=== PATIENT | female | born 1945 | race Caucasian/White ===

== ENCOUNTER 2019-11-19 22:33 | Inpatient (IN) | payer MEDICARE, OTHER ==
[2019-11-19] MEDS ORDERED: hydrALAZINE 20 MG/ML SDV IVPUSH ONE (23:49)
[2019-11-19] MEDS ORDERED: Ondansetron 4 MG Tab.DIS PO PRN (23:56)
[2019-11-19] MEDS ORDERED: 50% Dextrose in Water 50 ML Syringe IVPUSH PRN (23:56)
[2019-11-19] MEDS ORDERED: hydrALAZINE 20 MG/ML SDV IVPUSH PRN (23:56)
[2019-11-19] MEDS ORDERED: Ondansetron 4 MG/2 ML SDV IV PRN (23:56)
[2019-11-20] MEDS ORDERED: Losartan 100 MG Tab PO STA (00:13)
[2019-11-20] MEDS: Insulin Glarg,Human.Rec.Analog 100 Unit/ML SUBCUT SCH ×3 (00:45→20:38)
[2019-11-20] MEDS ORDERED: Insulin Lispro 100 Units/ML 3 ML Vial SUBCUT SCH ×2 (06:00→07:00)
[2019-11-20] MEDS: amLODIPine 10 MG Tab PO SCH (09:16)
[2019-11-20 11:47] LABS: VITAMIN D,25-HYDROXY 9.8 ng/ml (30.0-100.0)
[2019-11-20] MEDS: Insulin Lispro 100 Units/ML 3 ML Vial SUBCUT SCH ×3 (13:30→21:49)
--- NOTE | 2019-11-20 16:04 | PCM.PN ---
- General Info Date of Service: 11/20/19 Subjective Update: Feeling ok Tolerating diet Slept ok - Patient Data Vitals - Most Recent: Last Vital Signs Temp 99.1 F 11/20/19 15:25 Pulse 86 11/20/19 15:25 Resp 16 11/20/19 15:25 BP 175/70 H 11/20/19 15:25 Pulse Ox 94 L 11/20/19 15:25 Weight - Most Recent: 71.849 kg - Exam General: Alert, Cooperative, No Acute Distress HEENT: Pupils Equal, Pupils Reactive, Mucous Membr. Moist/[place] Neck: Supple, Trachea Midline, No JVD, No Thyromegaly Lungs: Clear to Auscultation, Normal Respiratory Effort. No: Decreased Breath Sounds, Crackles, Rales, Rhonchi, Wheezing Cardiovascular: Regular Rate, Regular Rhythm. No: Murmurs, Gallops, Rubs GI/Abdominal Exam: Normal Bowel Sounds, Soft, Non-Tender Back Exam: Normal Inspection, Full Range of Motion. No: CVA Tenderness (L), CVA Tenderness (R) Extremities: Normal Inspection, Normal Range of Motion Skin: Warm, Dry Neurological: No New Focal Deficit Psy/Mental Status: Alert Sepsis Event Note - Evaluation Sepsis Screening Result: No Definite Risk - Focused Exam Vital Signs: Vital Signs Temp Pulse Resp BP Pulse Ox 11/20/19 15:25 99.1 F 86 16 175/70 H 94 L 11/20/19 12:09 98.4 F 84 16 179/77 H 97 11/20/19 09:16 169/63 H 11/20/19 07:42 98.2 F 81 16 169/63 H 96 Date Exam was Performed: 11/20/19 Time Exam was Performed: 16:35 - Problem List & Annotations (1) CKD (chronic kidney disease), stage III SNOMED Code(s): 398896686 Code(s): N18.3 - CHRONIC KIDNEY DISEASE, STAGE 3 (MODERATE) Status: Acute Current Visit: Yes (2) Hypokalemia SNOMED Code(s): 22586132 Code(s): E87.6 - HYPOKALEMIA Status: Acute Current Visit: Yes (3) Altered mental status SNOMED Code(s): 744407520 Code(s): R41.82 - ALTERED MENTAL STATUS, UNSPECIFIED Status: Acute Current Visit: Yes (4) Hypomagnesemia SNOMED Code(s): 344821854 Code(s): E83.42 - HYPOMAGNESEMIA Status: Acute Current Visit: Yes (5) Poor compliance SNOMED Code(s): 5267087 Code(s): Z91.19 - PATIENT'S NONCOMPLIANCE W OTH MEDICAL TREATMENT AND REGIMEN Status: Acute Current Visit: Yes (6) Uncontrolled diabetes mellitus SNOMED Code(s): 88268569, 727947123 Code(s): E11.65 - TYPE 2 DIABETES MELLITUS WITH HYPERGLYCEMIA Status: Acute Current Visit: Yes (7) Uncontrolled hypertension SNOMED Code(s): 70480238, 19598111 Code(s): I10 - ESSENTIAL (PRIMARY) HYPERTENSION Status: Acute Current Visit: Yes - Problem List Review Problem List Initiated/Reviewed/Updated: Yes - Plan Plan:: Altered Mental Status Is very tangential with her speech as well as inattentive Patient appears very apathetic This month is the anniversary of her 's PLAN - Speech therapy cognitive evaluation - Psychiatry consult Diabetes Mellitus type 2, HbA1c- 9.9% (today) Glucose trend 149-170 PLAN - Accuchecks QID AC and HS - Hypoglycemia protocol - Glargine 50u every night - High intensity sliding scale Hypertension, uncontrolled BP trend 144-210/63-94 PLAN - Amlodipine 10mg QD - Losartan 100mg QD - PRN Hydralazine - Add hydrochlorothiazide 12.5mg QD CKD stage III Hypomagnesemia Hypokalemia GFR improved from yesterday PLAN - Repeat level in AM PROPHYLAXIS DVT- ambulation and compression stockings GI- not indicated CODE STATUS: DNR/DNI DISPOSITION: Patient will remain admitted for glucose control as well as bp stabilization with cognitive evaluation. Case management and social workers aware of case, pending evaluations of PT/OT for placement
--- NOTE | 2019-11-20 16:04 | PCM.HP.2 ---
H&P History of Present Illness - General Date of Service: 11/19/19 Admit Problem/Dx: Admission Diagnosis/Problem Admission Diagnosis/Problem Hyperglycemia - History of Present Illness Initial Comments - Free Text/Narative: This is a 74 year old female with past medical history of diabetes and hypertension who comes to the ED brought in by daughter, transferred from hospital in [place]. As per daughter she left home earlier this morning for an ladle patcher appointment in [place]. On her way there she was part of a highway shea with 4 patrol cars that were trying to stop her on the highway. She was eventually stopped and pulled over, at that time her glucose was 500. She was taken to a courthouse where daughter was called, upon picking her up she took patient to the emergency department where she was found to have glucose of 500 and BP of 274/120. She was given amlodipine 5mg, hydralazine 50mg, metoprolol tartrate 25mg and Lasix 20mg PO with minimal change in BP. As for her glucose she was given Humalog 10u and Lantus 10u, she was also given 1L NS and sent her for further evaluation. Of note daughter states that patient has not been taking medications for unknown time. - Related Data Allergies/Adverse Reactions: Allergies Allergy/AdvReac Type Severity Reaction Status Date / Time morphine Allergy Cannot Verified 11/19/19 22:52 Remember Home Medications: Home Meds Dulaglutide [Trulicity] 0.75 mg SQ Q7D 11/19/19 [History] Furosemide [Lasix] 20 mg PO DAILY 11/19/19 [History] Insulin Degludec [Tresiba] 65 unit SQ DAILY 11/19/19 [History] Losartan [Cozaar] 100 mg PO DAILY 11/19/19 [History] Magnesium Citrate 100 mg PO BID 11/19/19 [History] Omeprazole 20 mg PO ACBREAKFAST 11/19/19 [History] Potassium Chloride [Klor-Con 10] 10 meq PO DAILY 11/19/19 [History] amLODIPine Besylate [Norvasc] 10 mg PO DAILY 11/19/19 [History] cloNIDine [Catapres-TTS 1] 1 patch TD Q7D 11/19/19 [History] hydrALAZINE [Apresoline] 25 mg PO Q8H 11/19/19 [History] Past Medical History HEENT History: Reports: Other (See Below) Other HEENT History: lesion in right eye Cardiovascular History: Reports: High Cholesterol, Hypertension, Other (See Below) Other Cardiovascular History: enlarged heart Respiratory History: Reports: None Gastrointestinal History: Reports: GERD Genitourinary History: Reports: UTI, Recurrent Other Genitourinary History: renal colic 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: Psychiatric History: Reports: Dementia Endocrine/Metabolic History: Reports: Diabetes, Type II, Hypothyroidism, Vitamin D Deficiency Oncologic (Cancer) History: Reports: Other (See Below) Other Oncologic History: face Dermatologic History: Reports: None - Infectious Disease History Infectious Disease History: Reports: None - Past Surgical History HEENT Surgical History: Reports: Cataract Surgery GI Surgical History: Reports: Appendectomy, Cholecystectomy Female Surgical History: Reports: Hysterectomy Social & Family History - Family History Family Medical History: Noncontributory - Tobacco Use Smoking Status *Q: Never Smoker - Caffeine Use Caffeine Use: Reports: Coffee, Tea Other Caffeine Use: socially - Recreational Drug Use Recreational Drug Use: No H&P Review of Systems - Review of Systems: Review Of Systems: See Below General: Reports: Malaise. Denies: Fever, Chills, Weakness, Fatigue, Night Sweats, Diaphoresis HEENT: Denies: Post Nasal Drip, Sinus Congestion, Sore Throat, Vertigo, Visual Changes Pulmonary: Denies: Shortness of Breath, Wheezing, Pleuritic Chest Pain, Cough Cardiovascular: Denies: Chest Pain, Palpitations, Dyspnea on Exertion, Orthopnea , PND, Edema, Lightheadedness Gastrointestinal: Denies: Abdominal Pain, Anorexia, Black Stool, Bloody Stool, Constipation, Distension, Flatus, Hematemesis Genitourinary: Denies: Dysuria, Frequency, Burning Musculoskeletal: Denies: Joint Pain, Joint Swelling, Muscle Pain, Muscle Stiffness Skin: Denies: Cyanosis, Jaundice, Mottled Psychiatric: Reports: Confusion, Agitation. Denies: Depression, Mood Lability Neurological: Reports: Confusion. Denies: Dizziness, Headache, Numbness Exam - Exam Exam: See Below - Vital Signs Vital Signs: Last Vital Signs Temp 99.1 F 11/20/19 15:25 Pulse 86 11/20/19 15:25 Resp 16 11/20/19 15:25 BP 175/70 H 11/20/19 15:25 Pulse Ox 94 L 11/20/19 15:25 Weight: 71.849 kg - Exam General: Alert. No: Mild Distress, Moderate Distress, Severe Distress HEENT: EOMI, Mucosa Moist & [place]. No: Hearing Intact Neck: Supple, Trachea Midline, +2 Carotid Pulse wo Bruit, Full Range of Motion. No: Lymphadenopathy Lungs: Clear to Auscultation, Normal Respiratory Effort. No: Crackles, Rales, Rhonchi, Wheezing Cardiovascular: Regular Rate, Regular Rhythm. No: Systolic Murmur, Diastolic Murmur, Rubs, Gallop/S3, Gallop/S4 GI/Abdominal Exam: Normal Bowel Sounds, Soft, Non-Tender, No Organomegaly, No Distention. No: Distended, Guarding, Rigid, Rebound Back Exam: Normal Inspection. No: CVA Tenderness (L), CVA Tenderness (R) Skin: Warm Neuro Extensive - Mental Status: Alert - Patient Data Lab Results Last 24 hrs: Laboratory Results - last 24 hr 11/19/19 11/19/19 11/19/19 Range/Units 23:10 23:10 23:10 WBC (3.98-10.04) K/mm3 RBC (3.98-5.22) M/mm3 Hgb (11.2-15.7) gm/dl Hct (34.1-44.9) % MCV (79.4-94.8) fl MCH (25.6-32.2) pg MCHC (32.2-35.5) g/dl RDW Std Deviation (36.4-46.3) fL Plt Count (182-369) K/mm3 MPV (9.4-12.3) fl Neut % (Auto) (34.0-71.1) % Lymph % (Auto) (19.3-51.7) % Barnes % (Auto) (4.7-12.5) % Eos % (Auto) (0.7-5.8) Baso % (Auto) (0.1-1.2) % Neut # (Auto) (1.56-6.13) K/mm3 Lymph # (Auto) (1.18-3.74) K/mm3 Barnes # (Auto) (0.24-0.36) K/mm3 Eos # (Auto) (0.04-0.36) K/mm3 Baso # (Auto) (0.01-0.08) K/mm3 Sodium 139 (136-145) mEq/L Potassium 3.7 (3.5-5.1) mEq/L Chloride 103 (98-107) mEq/L Carbon Dioxide 29 (21-32) mEq/L Anion Gap 10.7 (5-15) BUN 25 H (7-18) mg/dL Creatinine 1.4 H (0.55-1.02) mg/dL Est Cr Clr Drug Dosing 27.88 mL/min Estimated GFR (MDRD) 37 (>60) mL/min BUN/Creatinine Ratio 17.9 (14-18) Glucose 170 H (83-115) mg/dL POC Glucose (83-110) mg/dL Lactic Acid 1.0 (0.4-2.0) mmol/L Calcium 9.0 (8.5-10.1) mg/dL Phosphorus 3.4 (2.6-4.7) mg/dL Magnesium 1.8 (1.8-2.4) mg/dl Vitamin D 25-Hydroxy (30.0-100.0) ng/ml TSH 3rd Generation (0.358-3.74) uIU/mL Ketones 0.05 (0.0-0.3) mM 11/20/19 11/20/19 11/20/19 Range/Units 05:16 05:16 06:50 WBC 6.48 (3.98-10.04) K/mm3 RBC 4.78 (3.98-5.22) M/mm3 Hgb 13.4 (11.2-15.7) gm/dl Hct 38.3 (34.1-44.9) % MCV 80.1 (79.4-94.8) fl MCH 28.0 (25.6-32.2) pg MCHC 35.0 (32.2-35.5) g/dl RDW Std Deviation 37.5 (36.4-46.3) fL Plt Count 189 (182-369) K/mm3 MPV 10.0 (9.4-12.3) fl Neut % (Auto) 62.7 (34.0-71.1) % Lymph % (Auto) 26.2 (19.3-51.7) % Barnes % (Auto) 6.8 (4.7-12.5) % Eos % (Auto) 3.9 (0.7-5.8) Baso % (Auto) 0.2 (0.1-1.2) % Neut # (Auto) 4.07 (1.56-6.13) K/mm3 Lymph # (Auto) 1.70 (1.18-3.74) K/mm3 Barnes # (Auto) 0.44 H (0.24-0.36) K/mm3 Eos # (Auto) 0.25 (0.04-0.36) K/mm3 Baso # (Auto) 0.01 (0.01-0.08) K/mm3 Sodium 137 (136-145) mEq/L Potassium 3.4 L (3.5-5.1) mEq/L Chloride 101 (98-107) mEq/L Carbon Dioxide 27 (21-32) mEq/L Anion Gap 12.4 (5-15) BUN 24 H (7-18) mg/dL Creatinine 1.2 H (0.55-1.02) mg/dL Est Cr Clr Drug Dosing 32.53 mL/min Estimated GFR (MDRD) 44 (>60) mL/min BUN/Creatinine Ratio 20.0 H (14-18) Glucose 149 H (83-115) mg/dL POC Glucose 154 H (83-110) mg/dL Lactic Acid (0.4-2.0) mmol/L Calcium 9.4 (8.5-10.1) mg/dL Phosphorus 3.4 (2.6-4.7) mg/dL Magnesium 1.7 L (1.8-2.4) mg/dl Vitamin D 25-Hydroxy (30.0-100.0) ng/ml TSH 3rd Generation (0.358-3.74) uIU/mL Ketones (0.0-0.3) mM 11/20/19 Range/Units 11:00 WBC (3.98-10.04) K/mm3 RBC (3.98-5.22) M/mm3 Hgb (11.2-15.7) gm/dl Hct (34.1-44.9) % MCV (79.4-94.8) fl MCH (25.6-32.2) pg MCHC (32.2-35.5) g/dl RDW Std Deviation (36.4-46.3) fL Plt Count (182-369) K/mm3 MPV (9.4-12.3) fl Neut % (Auto) (34.0-71.1) % Lymph % (Auto) (19.3-51.7) % Barnes % (Auto) (4.7-12.5) % Eos % (Auto) (0.7-5.8) Baso % (Auto) (0.1-1.2) % Neut # (Auto) (1.56-6.13) K/mm3 Lymph # (Auto) (1.18-3.74) K/mm3 Barnes # (Auto) (0.24-0.36) K/mm3 Eos # (Auto) (0.04-0.36) K/mm3 Baso # (Auto) (0.01-0.08) K/mm3 Sodium (136-145) mEq/L Potassium (3.5-5.1) mEq/L Chloride (98-107) mEq/L Carbon Dioxide (21-32) mEq/L Anion Gap (5-15) BUN (7-18) mg/dL Creatinine (0.55-1.02) mg/dL Est Cr Clr Drug Dosing mL/min Estimated GFR (MDRD) (>60) mL/min BUN/Creatinine Ratio (14-18) Glucose (83-115) mg/dL POC Glucose (83-110) mg/dL Lactic Acid (0.4-2.0) mmol/L Calcium (8.5-10.1) mg/dL Phosphorus (2.6-4.7) mg/dL Magnesium (1.8-2.4) mg/dl Vitamin D 25-Hydroxy 9.8 L (30.0-100.0) ng/ml TSH 3rd Generation 6.076 H (0.358-3.74) uIU/mL Ketones (0.0-0.3) mM Result Diagrams: 11/20/19 05:16 11/20/19 05:16 Sepsis Event Note - Evaluation Sepsis Screening Result: No Definite Risk - Focused Exam Vital Signs: Vital Signs Temp Pulse Resp BP Pulse Ox 11/20/19 15:25 99.1 F 86 16 175/70 H 94 L 11/20/19 12:09 98.4 F 84 16 179/77 H 97 11/20/19 09:16 169/63 H 11/20/19 07:42 98.2 F 81 16 169/63 H 96 Date Exam was Performed: 11/20/19 Time Exam was Performed: 16:25 - Problem List (1) Uncontrolled diabetes mellitus SNOMED Code(s): 75112930, 111793759 ICD Code: E11.65 - TYPE 2 DIABETES MELLITUS WITH HYPERGLYCEMIA Status: Acute Current Visit: Yes (2) Uncontrolled hypertension SNOMED Code(s): 70799018, 01964037 ICD Code: I10 - ESSENTIAL (PRIMARY) HYPERTENSION Status: Acute Current Visit: Yes (3) Poor compliance SNOMED Code(s): 0478354 ICD Code: Z91.19 - PATIENT'S NONCOMPLIANCE W OTH MEDICAL TREATMENT AND REGIMEN Status: Acute Current Visit: Yes (4) Altered mental status SNOMED Code(s): 748199406 ICD Code: R41.82 - ALTERED MENTAL STATUS, UNSPECIFIED Status: Acute Current Visit: Yes (5) Hypomagnesemia SNOMED Code(s): 384612624 ICD Code: E83.42 - HYPOMAGNESEMIA Status: Acute Current Visit: Yes Problem List Initiated/Reviewed/Updated: Yes Assessment/Plan Comment:: Altered Mental Status Is very tangential with her speech as well as inattentive PLAN - Monitor cognitive status - Evaluate consult to psychiatry Diabetes Mellitus type 2, HbA1c- 9.9% (today) PLAN - Accuchecks QID AC and HS - Hypoglycemia protocol - Glargine 50u now - High intensity sliding scale Hypertension, uncontrolled PLAN - Amlodipine 10mg QD - Losartan 100mg QD - PRN Hydralazine Hypomagnesemia Replaced in [place] ER PLAN - Repeat level in AM PROPHYLAXIS DVT- ambulation and compression stockings GI- not indicated CODE STATUS: DNR/DNI DISPOSITION: Patient will be admitted under observation to medical floor for glucose and blood pressure control. - Mortality Measure Prognosis:: Good
[2019-11-20] MEDS: LORazepam 0.5 MG Tab PO SCH ×2 (16:15→20:37)
[2019-11-20] MEDS ORDERED: Hydrochlorothiazide 12.5 MG Cap PO STA (16:41)
[2019-11-20] MEDS: QUEtiapine 25 MG Tab PO SCH (20:37)
[2019-11-21] MEDS: Insulin Lispro 100 Units/ML 3 ML Vial SUBCUT SCH ×4 (08:48→21:24)
[2019-11-21] MEDS: amLODIPine 10 MG Tab PO SCH (08:49)
[2019-11-21] MEDS: Hydrochlorothiazide 12.5 MG Cap PO SCH (08:49)
[2019-11-21] MEDS: LORazepam 0.5 MG Tab PO SCH ×2 (08:49→21:30)
[2019-11-21] MEDS: FLUoxetine 20 MG Cap PO SCH (08:50)
--- NOTE | 2019-11-21 09:14 | CONS ---
CONSULTING PHYSICIAN: Herrera De La Cruz MD DATE OF CONSULTATION: 11/20/2019 Site where the services are provided is [facility] in [place], [place]. Site where the services are provided is from our offices in [facility], and length of service for this 60-minute inpatient telemedicine event is 60 minutes. IDENTIFICATION: The patient is a 74-year old female, who is admitted to the inpatient Med/Surg Unit [facility] on 11/19/2019. She is seen for psychiatric consultation per the request of staff attending, Dr. Whitaker, and her treatment team. It should also be noted that nursing staff is present during the course of the interview with the patient and often help relay questions as the patient is hard of hearing during the consult. CHIEF COMPLAINT: "I was going down the [place] and there were 4 vocational counselor who saw me. They were saying I was doing 105 miles an hour and I don't believe them." HISTORY OF PRESENT ILLNESS: The patient is a 74 year old female, who is admitted to the inpatient Med/Surg Unit as a direct admit from [facility] after she was pulled over for speeding at over 105 miles an hour for about 45 miles. The patient was arrested per staff report at that time and brought into [place]. The patient has a connection with the [place] legal department. 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 On evaluation, it turned out that the patient's glucose was over 500. She is being treated for her hyperglycemia at this point in time, but staff are concerned that she has been also displaying signs and symptoms of depression and confusion while on the unit. 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 She states that she is always worrying and she has lot of anxiety and nerves, and she states her memory is "not as sharp as it should be." She states "I cry really easily" at this point in time, but denies that she has been excessively depressed, and she reports no mood swings. She denies that she is suicidal or homicidal. She does state that she sometimes wonders if she hears something in the other room, but then her grandkids will say it is nothing. The patient is generally feeling overwhelmed, but again, denies depression. She states she is sleeping well and she has a good appetite. MEDICATIONS AT TIME OF ADMISSION: 1. Trulicity. 2. Lasix. 3. Insulin. ALLERGIES: The patient is allergic to morphine. PAST MEDICAL HISTORY: 1. Type 2 diabetes. 2. History of hypertension. 3. Status post hysterectomy. 4. Status post cholecystectomy. 5. History of hearing difficulties. REVIEW OF SYSTEMS: Aside from endocrine, cardiovascular, reproductive, GI, and auditory, all other major organ systems are negative at this point in time for acute difficulties or complications. FAMILY PSYCHIATRIC AND CD HISTORY: The patient denies. PAST PSYCHIATRIC AND CD HISTORY: The patient denies. She is a nontobacco user. She denies any previous suicide attempts or self-injurious behaviors. She reports no previous psychiatric medication history. She appears to have been on clonidine in the past, but this does not appear to have been given for any type of psychiatric issues. SOCIAL HISTORY: The patient was born and raised in [place], [place]. She is x1 for 54 years until her in November 2018. Per her report, she has 4 children from the union. 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 MENTAL STATUS EXAMINATION: The patient is a 74 year old white female in no apparent distress. Speech is of increased latency of response, shortened duration of utterance. Psychomotor activity is within normal limits. There are no abnormal motor movements or tics observed. Gait and station are not observed. The patient is cognitively oriented to person and place as well as date, but she is not aware of her age, thinking that she is 47 years old rather than 74 and this is asked a number of times throughout the interview session, although she does get her date of correct. Mood is anxious. Affect is consistent with stated mood, anxious, and restricted and depressed appearing, and even mildly irritable at some of the questions that were asked, but cooperative overall for the purposes of the intake interview. At times, the patient does also appear to become tearful when talking about the loss of her and feeling overwhelmed with the financial stressors. There is no behavioral or stated evidence of acute suicidal or homicidal ideation or acute delusional symptoms. Thought content is significant for possible noncommand-type auditory hallucinations as well as paranoid themes. Thought processes are significant for ruminations and thought blocking. There are no manic symptoms or loose associations evident. Judgment and insight do appear somewhat impaired secondary to the severity of her depression, anxiety, and cognitive deficits. Motivation for help appears fair to good, however. VITALS: 179/77, 84, 16, 98.4 degrees. IMPRESSION: [place] I: 1. Major depressive disorder, severe, F32.3. 2. Psychosis, not otherwise specified, F29. 3. Anxiety disorder, not otherwise specified, F41.9. [place] II: None. [place] III: 1. Hyperglycemia. 2. Diabetes, insulin dependent type. 3. History of hypertension. 4. Status post hysterectomy. 5. Status post cholecystectomy. 6. History of hearing difficulties. [place] IV: Severe. [place] V: 50-55. PLAN: 1. Begin trial of Prozac 20 mg daily for symptoms of depression. 2. Begin Ativan 0.5 mg b.i.d. for anxiety reduction. 3. Begin Seroquel 25 mg at bedtime for clarity of thought, anxiety reduction, sleep initiation and maintenance, elimination of any psychotic or paranoid symptoms. 4. Other medications as dosed and prescribed by the patient's primary inpatient medical treatment team. 5. Pastoral guidance. 6. Recommend that when the patient is medically stabilized that she either be transferred to inpatient psychiatry if she has cleared from a psychiatric standpoint, then she could be discharged back to the community if she is not deemed a danger to herself or others. 7. We will continue to follow up with the patient on an as-needed basis while she remains on the inpatient Med/Surg Unit at [facility] in [place], [place]. 8. We will follow up with the patient sooner if there are any complications in the interim. 9. Crisis plan is in place. MADELIN /[id number]
[2019-11-21] MEDS ORDERED: Potassium Chloride 20 MEQ Tab.ER PO ONE (09:16)
[2019-11-21] MEDS ORDERED: Magnesium Sulfate/Water 4 GM in Premix Bag 1 BAG IV ONE (09:30)
[2019-11-21] MEDS ORDERED: Non-Formulary Medication 1 Each (Dulaglutide [Trulicity] 0.75 MG) SQ SCH (10:00)
--- NOTE | 2019-11-21 12:21 | PCM.PN ---
- General Info Date of Service: 11/21/19 Admission Dx/Problem (Free Text): Admission Diagnosis/Problem Admission Diagnosis/Problem Hyperglycemia Subjective Update: Patient continues to have slow speech, but did know where she was, how she got here, the month, day, and year. Recommendations from speech therapy, Occupational Therapy, and physical therapy are she needs 24-hour care. - Review of Systems General: Reports: No Symptoms HEENT: Reports: No Symptoms Pulmonary: Reports: No Symptoms Cardiovascular: Reports: No Symptoms Gastrointestinal: Reports: No Symptoms Musculoskeletal: Reports: No Symptoms - Patient Data Vitals - Most Recent: Last Vital Signs Temp 97.5 F 11/21/19 11:12 Pulse 86 11/21/19 11:12 Resp 20 11/21/19 11:12 BP 150/66 H 11/21/19 11:12 Pulse Ox 96 11/21/19 11:12 Weight - Most Recent: 156 lb 11.2 oz I&O - Last 24 Hours: Intake & Output 11/20/19 11/21/19 11/21/19 22:59 06:59 14:59 Intake Total 1280 200 Output Total 550 100 Balance 730 100 Lab Results Last 24 Hours: Laboratory Results - last 24 hr 11/20/19 11/20/19 11/20/19 Range/Units 11:00 11:32 17:15 WBC (3.98-10.04) K/mm3 RBC (3.98-5.22) M/mm3 Hgb (11.2-15.7) gm/dl Hct (34.1-44.9) % MCV (79.4-94.8) fl MCH (25.6-32.2) pg MCHC (32.2-35.5) g/dl RDW Std Deviation (36.4-46.3) fL Plt Count (182-369) K/mm3 MPV (9.4-12.3) fl Neut % (Auto) (34.0-71.1) % Lymph % (Auto) (19.3-51.7) % [place] % (Auto) (4.7-12.5) % Eos % (Auto) (0.7-5.8) Baso % (Auto) (0.1-1.2) % Neut # (Auto) (1.56-6.13) K/mm3 Lymph # (Auto) (1.18-3.74) K/mm3 [place] # (Auto) (0.24-0.36) K/mm3 Eos # (Auto) (0.04-0.36) K/mm3 Baso # (Auto) (0.01-0.08) K/mm3 Sodium (136-145) mEq/L Potassium (3.5-5.1) mEq/L Chloride (98-107) mEq/L Carbon Dioxide (21-32) mEq/L Anion Gap (5-15) BUN (7-18) mg/dL Creatinine (0.55-1.02) mg/dL Est Cr Clr Drug Dosing mL/min Estimated GFR (MDRD) (>60) mL/min BUN/Creatinine Ratio (14-18) Glucose (83-115) mg/dL POC Glucose 340 H 308 H (83-110) mg/dL Calcium (8.5-10.1) mg/dL Magnesium (1.8-2.4) mg/dl Total Bilirubin (0.2-1.0) mg/dL AST (15-37) U/L ALT (14-59) U/L Alkaline Phosphatase (46-116) U/L Total Protein (6.4-8.2) g/dl Albumin (3.4-5.0) g/dl Globulin gm/dL Albumin/Globulin Ratio (1-2) Vitamin B12 776 (193-986) pg/ml Folate 13.9 (8.6-58.9) ng/mL 11/20/19 11/21/19 11/21/19 Range/Units 21:41 06:37 08:23 WBC 4.96 (3.98-10.04) K/mm3 RBC 4.54 (3.98-5.22) M/mm3 Hgb 12.6 (11.2-15.7) gm/dl Hct 36.9 (34.1-44.9) % MCV 81.3 (79.4-94.8) fl MCH 27.8 (25.6-32.2) pg MCHC 34.1 (32.2-35.5) g/dl RDW Std Deviation 38.5 (36.4-46.3) fL Plt Count 158 L (182-369) K/mm3 MPV 10.1 (9.4-12.3) fl Neut % (Auto) 64.1 (34.0-71.1) % Lymph % (Auto) 23.6 (19.3-51.7) % [place] % (Auto) 7.3 (4.7-12.5) % Eos % (Auto) 4.4 (0.7-5.8) Baso % (Auto) 0.4 (0.1-1.2) % Neut # (Auto) 3.18 (1.56-6.13) K/mm3 Lymph # (Auto) 1.17 L (1.18-3.74) K/mm3 [place] # (Auto) 0.36 (0.24-0.36) K/mm3 Eos # (Auto) 0.22 (0.04-0.36) K/mm3 Baso # (Auto) 0.02 (0.01-0.08) K/mm3 Sodium (136-145) mEq/L Potassium (3.5-5.1) mEq/L Chloride (98-107) mEq/L Carbon Dioxide (21-32) mEq/L Anion Gap (5-15) BUN (7-18) mg/dL Creatinine (0.55-1.02) mg/dL Est Cr Clr Drug Dosing mL/min Estimated GFR (MDRD) (>60) mL/min BUN/Creatinine Ratio (14-18) Glucose (83-115) mg/dL POC Glucose 286 H 197 H (83-110) mg/dL Calcium (8.5-10.1) mg/dL Magnesium (1.8-2.4) mg/dl Total Bilirubin (0.2-1.0) mg/dL AST (15-37) U/L ALT (14-59) U/L Alkaline Phosphatase (46-116) U/L Total Protein (6.4-8.2) g/dl Albumin (3.4-5.0) g/dl Globulin gm/dL Albumin/Globulin Ratio (1-2) Vitamin B12 (193-986) pg/ml Folate (8.6-58.9) ng/mL 11/21/19 11/21/19 Range/Units 08:23 11:39 WBC (3.98-10.04) K/mm3 RBC (3.98-5.22) M/mm3 Hgb (11.2-15.7) gm/dl Hct (34.1-44.9) % MCV (79.4-94.8) fl MCH (25.6-32.2) pg MCHC (32.2-35.5) g/dl RDW Std Deviation (36.4-46.3) fL Plt Count (182-369) K/mm3 MPV (9.4-12.3) fl Neut % (Auto) (34.0-71.1) % Lymph % (Auto) (19.3-51.7) % [place] % (Auto) (4.7-12.5) % Eos % (Auto) (0.7-5.8) Baso % (Auto) (0.1-1.2) % Neut # (Auto) (1.56-6.13) K/mm3 Lymph # (Auto) (1.18-3.74) K/mm3 [place] # (Auto) (0.24-0.36) K/mm3 Eos # (Auto) (0.04-0.36) K/mm3 Baso # (Auto) (0.01-0.08) K/mm3 Sodium 139 (136-145) mEq/L Potassium 3.4 L (3.5-5.1) mEq/L Chloride 103 (98-107) mEq/L Carbon Dioxide 29 (21-32) mEq/L Anion Gap 10.4 (5-15) BUN 29 H (7-18) mg/dL Creatinine 1.4 H (0.55-1.02) mg/dL Est Cr Clr Drug Dosing 27.88 mL/min Estimated GFR (MDRD) 37 (>60) mL/min BUN/Creatinine Ratio 20.7 H (14-18) Glucose 174 H (83-115) mg/dL POC Glucose 252 H (83-110) mg/dL Calcium 8.6 (8.5-10.1) mg/dL Magnesium 1.6 L (1.8-2.4) mg/dl Total Bilirubin 0.6 (0.2-1.0) mg/dL AST 11 L (15-37) U/L ALT 15 (14-59) U/L Alkaline Phosphatase 54 (46-116) U/L Total Protein 5.2 L (6.4-8.2) g/dl Albumin 2.4 L (3.4-5.0) g/dl Globulin 2.8 gm/dL Albumin/Globulin Ratio 0.9 L (1-2) Vitamin B12 (193-986) pg/ml Folate (8.6-58.9) ng/mL Med Orders - Current: Current Medications Acetaminophen (Tylenol) 650 mg PO Q4H PRN PRN Reason: Pain (Mild 1-3)/fever Amlodipine Besylate (Norvasc) 10 mg PO DAILY [facility] Cholecalciferol (Vitamin D3) 5,000 unit PO DAILY [facility] Clonidine HCl (Catapres-Tts 1) 0.1 mg TRDERM Q7D [facility] Dextrose/Water (Dextrose 50% In Water) 50 ml IVPUSH ASDIRECTED PRN PRN Reason: Hypoglycemia Fluoxetine HCl (Prozac) 20 mg PO DAILY [facility] Last Admin: 11/21/19 08:50 Dose: 20 mg Hydralazine HCl (Apresoline) 10 mg IVPUSH Q2H PRN PRN Reason: Hypertension Last Admin: 11/20/19 03:13 Dose: 10 mg Hydralazine HCl (Apresoline) 25 mg PO Q8HR [facility] Hydrochlorothiazide (Hydrochlorothiazide) 12.5 mg PO DAILY [facility] Last Admin: 11/21/19 08:49 Dose: 12.5 mg Magnesium Sulfate 4 gm/ Premix 100 mls @ 25 mls/hr IV ONETIME ONE Stop: 11/21/19 13:29 Last Admin: 11/21/19 10:32 Dose: 25 mls/hr Insulin Glargine (Lantus) 50 unit SUBCUT BEDTIME [facility] Last Admin: 11/20/19 20:38 Dose: 50 units Insulin Human Lispro (Humalog) 0 unit SUBCUT QIDACANDBED [facility]; Protocol Last Admin: 11/21/19 12:13 Dose: 9 units Lorazepam (Ativan) 0.5 mg PO BID [facility] Last Admin: 11/21/19 08:49 Dose: 0.5 mg Losartan Potassium (Cozaar) 100 mg PO DAILY [facility] Non-Formulary Medication (Dulaglutide [Trulicity]) 0.75 mg SQ Q7D [facility] Ondansetron HCl (Zofran Odt) 4 mg PO Q6H PRN PRN Reason: nausea, able to take PO Ondansetron HCl (Zofran) 4 mg IV Q6H PRN PRN Reason: Nausea/Vomiting Pantoprazole Sodium (Protonix) 40 mg PO ACBREAKFAST [facility] Potassium Chloride (Klor-Con 10) 10 meq PO DAILY [facility] Quetiapine Fumarate (Seroquel) 25 mg PO BEDTIME [facility] Last Admin: 11/20/19 20:37 Dose: 25 mg Discontinued Medications Amlodipine Besylate (Norvasc) 10 mg PO DAILY [facility] Last Admin: 11/21/19 08:49 Dose: 10 mg Hydralazine HCl (Apresoline) 10 mg IVPUSH ONETIME ONE Stop: 11/19/19 23:50 Last Admin: 11/20/19 00:19 Dose: Not Given Hydrochlorothiazide (Hydrochlorothiazide) 12.5 mg PO ONETIME STA Stop: 11/20/19 16:42 Last Admin: 11/20/19 18:01 Dose: 12.5 mg Insulin Glargine (Lantus) 50 unit SUBCUT DAILY [facility] Last Admin: 11/20/19 13:26 Dose: Not Given Insulin Human Lispro (Humalog) 0 unit SUBCUT BIDAC [facility]; Protocol Last Admin: 11/20/19 12:05 Dose: Not Given Insulin Human Lispro (Humalog) 0 unit SUBCUT BID@0700,1700 [facility]; Protocol Last Admin: 11/20/19 09:14 Dose: 3 units Losartan Potassium (Cozaar) 100 mg PO BEDTIME STA Stop: 11/20/19 00:14 Last Admin: 11/20/19 00:58 Dose: 100 mg Potassium Chloride (Klor-Con M20) 20 meq PO ONETIME ONE Stop: 11/21/19 09:17 Last Admin: 11/21/19 10:32 Dose: 20 meq - Exam Quality Assessment: No: Supplemental Oxygen General: Alert, Oriented HEENT: Pupils Equal Neck: Supple Lungs: Clear to Auscultation, Normal Respiratory Effort Cardiovascular: Regular Rate, Regular Rhythm GI/Abdominal Exam: Normal Bowel Sounds, Soft, Non-Tender, No Organomegaly, No Distention, No Abnormal Bruit, No Mass, Pelvis Stable Extremities: Normal Inspection, Normal Range of Motion, Non-Tender, No Pedal Edema, Normal Capillary Refill Skin: Warm, Dry, Intact Psy/Mental Status: Alert, Normal Affect, Normal Mood Sepsis Event Note - Evaluation Sepsis Screening Result: No Definite Risk - Focused Exam Vital Signs: Vital Signs Temp Pulse Resp BP Pulse Ox 11/21/19 11:12 97.5 F 86 20 150/66 H 96 11/21/19 08:49 172/110 H 11/21/19 08:39 97.3 F 75 16 172/110 H 98 11/21/19 04:25 97.5 F 77 16 160/73 H 97 Date Exam was Performed: 11/21/19 Time Exam was Performed: 15:13 - Problem List Review Problem List Initiated/Reviewed/Updated: Yes - My Orders Last 24 Hours: My Active Orders 11/21/19 09:30 Magnesium Sulfate/Water [Magnesium Sulfate in Water Premix] 4 gm Premix Bag 1 bag IV ONETIME 11/21/19 10:00 Dulaglutide [Trulicity] 0.75 mg SQ Q7D cloNIDine [Catapres-TTS 1] 0.1 mg TRDERM Q7D 11/21/19 14:00 hydrALAZINE [Apresoline] 25 mg PO Q8HR 11/22/19 05:11 T4 FREE [CHEM] AM 11/22/19 06:00 Pantoprazole [ProTONIX] 40 mg PO ACBREAKFAST 11/22/19 09:00 Cholecalciferol (Vitamin D3) [Vitamin D3] 5,000 unit PO DAILY Losartan [Cozaar] 100 mg PO DAILY Potassium Chloride [Klor-Con 10] 10 meq PO DAILY amLODIPine [Norvasc] 10 mg PO DAILY - Plan Plan:: Altered Mental Status -improved Slow with her speech as well as inattentive. Patient wishes to return home. This month is the anniversary of her 's - Speech therapy cognitive evaluation -recommends 24-hour care - Psychiatry consult -recommends reevaluation after medically stable Diabetes Mellitus type 2, HbA1c- 9.9% (today) Glucose trend 149-170 PLAN - Accuchecks QID AC and HS - Hypoglycemia protocol - Glargine 50u every night - High intensity sliding scale Hypertension, uncontrolled BP trend 144-210/63-94 PLAN - restart home meds except lasix - PRN Hydralazine - Add hydrochlorothiazide 12.5mg QD CKD stage III Hypomagnesemia Hypokalemia GFR improving PLAN - Repeat level in AM PROPHYLAXIS DVT- ambulation and compression stockings GI- not indicated CODE STATUS: DNR/DNI DISPOSITION: Patient will remain admitted for glucose control as well as bp stabilization with cognitive evaluation. Case management and social workers aware of case, pending evaluations of PT/OT for placement
[2019-11-21] MEDS: hydrALAZINE 25 MG Tab PO SCH ×2 (13:23→21:30)
[2019-11-21] MEDS ORDERED: cloNIDine 0.1 MG/Day Transdermal Patch TRDERM SCH (20:00)
[2019-11-21] MEDS: Insulin Glarg,Human.Rec.Analog 100 Unit/ML SUBCUT SCH (21:23)
[2019-11-21] MEDS: QUEtiapine 25 MG Tab PO SCH (21:30)
[2019-11-22] MEDS: Pantoprazole 40 MG Tab.CR PO SCH (05:13)
[2019-11-22] MEDS: hydrALAZINE 25 MG Tab PO SCH ×3 (05:13→21:10)
[2019-11-22] MEDS: Insulin Lispro 100 Units/ML 3 ML Vial SUBCUT SCH ×4 (06:28→21:11)
[2019-11-22] MEDS ORDERED: Potassium Chloride 20 MEQ Tab.ER PO ONE (10:00)
[2019-11-22] MEDS: Cholecalciferol (Vitamin D3) 5,000 UNIT Tab PO SCH (10:01)
[2019-11-22] MEDS: FLUoxetine 20 MG Cap PO SCH (10:01)
[2019-11-22] MEDS: LORazepam 0.5 MG Tab PO SCH ×2 (10:01→21:08)
[2019-11-22] MEDS: Potassium Chloride 10 MEQ Tab.ER PO SCH (10:02)
[2019-11-22] MEDS: Losartan 100 MG Tab PO SCH (10:02)
[2019-11-22] MEDS: amLODIPine 10 MG Tab PO SCH (10:02)
[2019-11-22] MEDS: Hydrochlorothiazide 12.5 MG Cap PO SCH (10:02)
--- NOTE | 2019-11-22 11:32 | PCM.PN ---
- General Info Date of Service: 11/22/19 Admission Dx/Problem (Free Text): Admission Diagnosis/Problem Admission Diagnosis/Problem Hyperglycemia Subjective Update: Patient states she is feeling stronger and feels ready to go home. Functional Status: Reports: Pain Controlled - Review of Systems General: Reports: No Symptoms HEENT: Reports: No Symptoms Pulmonary: Reports: No Symptoms Cardiovascular: Reports: No Symptoms Gastrointestinal: Reports: No Symptoms Musculoskeletal: Reports: No Symptoms Neurological: Reports: No Symptoms Psychiatric: Reports: No Symptoms - Patient Data Vitals - Most Recent: Last Vital Signs Temp 97.9 F 11/22/19 10:00 Pulse 66 11/22/19 10:00 Resp 18 11/22/19 10:00 BP 127/87 11/22/19 10:02 Pulse Ox 98 11/22/19 10:00 Weight - Most Recent: 158 lb 4.8 oz I&O - Last 24 Hours: Intake & Output 11/21/19 11/22/19 11/22/19 22:59 06:59 14:59 Intake Total 1200 100 Output Total 500 850 Balance 700 -750 Lab Results Last 24 Hours: Laboratory Results - last 24 hr 11/21/19 11/21/19 11/21/19 Range/Units 11:39 16:54 21:22 WBC (3.98-10.04) K/mm3 RBC (3.98-5.22) M/mm3 Hgb (11.2-15.7) gm/dl Hct (34.1-44.9) % MCV (79.4-94.8) fl MCH (25.6-32.2) pg MCHC (32.2-35.5) g/dl RDW Std Deviation (36.4-46.3) fL Plt Count (182-369) K/mm3 MPV (9.4-12.3) fl Neut % (Auto) (34.0-71.1) % Lymph % (Auto) (19.3-51.7) % [place] % (Auto) (4.7-12.5) % Eos % (Auto) (0.7-5.8) Baso % (Auto) (0.1-1.2) % Neut # (Auto) (1.56-6.13) K/mm3 Lymph # (Auto) (1.18-3.74) K/mm3 [place] # (Auto) (0.24-0.36) K/mm3 Eos # (Auto) (0.04-0.36) K/mm3 Baso # (Auto) (0.01-0.08) K/mm3 Sodium (136-145) mEq/L Potassium (3.5-5.1) mEq/L Chloride (98-107) mEq/L Carbon Dioxide (21-32) mEq/L Anion Gap (5-15) BUN (7-18) mg/dL Creatinine (0.55-1.02) mg/dL Est Cr Clr Drug Dosing mL/min Estimated GFR (MDRD) (>60) mL/min BUN/Creatinine Ratio (14-18) Glucose (83-115) mg/dL POC Glucose 252 H 329 H 196 H (83-110) mg/dL Calcium (8.5-10.1) mg/dL Magnesium (1.8-2.4) mg/dl Total Bilirubin (0.2-1.0) mg/dL AST (15-37) U/L ALT (14-59) U/L Alkaline Phosphatase (46-116) U/L Total Protein (6.4-8.2) g/dl Albumin (3.4-5.0) g/dl Globulin gm/dL Albumin/Globulin Ratio (1-2) Free T4 (0.76-1.46) ng/dL 11/22/19 11/22/19 11/22/19 Range/Units 05:37 05:37 06:12 WBC 5.64 (3.98-10.04) K/mm3 RBC 4.50 (3.98-5.22) M/mm3 Hgb 12.7 (11.2-15.7) gm/dl Hct 37.5 (34.1-44.9) % MCV 83.3 (79.4-94.8) fl MCH 28.2 (25.6-32.2) pg MCHC 33.9 (32.2-35.5) g/dl RDW Std Deviation 39.4 (36.4-46.3) fL Plt Count 162 L (182-369) K/mm3 MPV 10.4 (9.4-12.3) fl Neut % (Auto) 60.4 (34.0-71.1) % Lymph % (Auto) 27.1 (19.3-51.7) % [place] % (Auto) 7.8 (4.7-12.5) % Eos % (Auto) 4.3 (0.7-5.8) Baso % (Auto) 0.2 (0.1-1.2) % Neut # (Auto) 3.41 (1.56-6.13) K/mm3 Lymph # (Auto) 1.53 (1.18-3.74) K/mm3 [place] # (Auto) 0.44 H (0.24-0.36) K/mm3 Eos # (Auto) 0.24 (0.04-0.36) K/mm3 Baso # (Auto) 0.01 (0.01-0.08) K/mm3 Sodium 136 (136-145) mEq/L Potassium 3.3 L (3.5-5.1) mEq/L Chloride 101 (98-107) mEq/L Carbon Dioxide 28 (21-32) mEq/L Anion Gap 10.3 (5-15) BUN 32 H (7-18) mg/dL Creatinine 1.4 H (0.55-1.02) mg/dL Est Cr Clr Drug Dosing 27.88 mL/min Estimated GFR (MDRD) 37 (>60) mL/min BUN/Creatinine Ratio 22.9 H (14-18) Glucose 95 (83-115) mg/dL POC Glucose 100 (83-110) mg/dL Calcium 8.8 (8.5-10.1) mg/dL Magnesium 2.3 (1.8-2.4) mg/dl Total Bilirubin 0.6 (0.2-1.0) mg/dL AST 13 L (15-37) U/L ALT 15 (14-59) U/L Alkaline Phosphatase 52 (46-116) U/L Total Protein 5.4 L (6.4-8.2) g/dl Albumin 2.5 L (3.4-5.0) g/dl Globulin 2.9 gm/dL Albumin/Globulin Ratio 0.9 L (1-2) Free T4 0.84 (0.76-1.46) ng/dL Med Orders - Current: Current Medications Acetaminophen (Tylenol) 650 mg PO Q4H PRN PRN Reason: Pain (Mild 1-3)/fever Amlodipine Besylate (Norvasc) 10 mg PO DAILY [facility] Last Admin: 11/22/19 10:02 Dose: 10 mg Cholecalciferol (Vitamin D3) 5,000 unit PO DAILY [facility] Last Admin: 11/22/19 10:01 Dose: 5,000 unit Clonidine HCl (Catapres-Tts 1) 0.1 mg TRDERM Q7D [facility] Last Admin: 11/21/19 21:38 Dose: 0.1 mg Dextrose/Water (Dextrose 50% In Water) 50 ml IVPUSH ASDIRECTED PRN PRN Reason: Hypoglycemia Fluoxetine HCl (Prozac) 20 mg PO DAILY [facility] Last Admin: 11/22/19 10:01 Dose: 20 mg Hydralazine HCl (Apresoline) 10 mg IVPUSH Q2H PRN PRN Reason: Hypertension Last Admin: 11/20/19 03:13 Dose: 10 mg Hydralazine HCl (Apresoline) 25 mg PO Q8HR [facility] Last Admin: 11/22/19 05:13 Dose: 25 mg Hydrochlorothiazide (Hydrochlorothiazide) 12.5 mg PO DAILY [facility] Last Admin: 11/22/19 10:02 Dose: 12.5 mg Insulin Glargine (Lantus) 50 unit SUBCUT BEDTIME [facility] Last Admin: 11/21/19 21:23 Dose: 50 units Insulin Human Lispro (Humalog) 0 unit SUBCUT QIDACANDBED [facility]; Protocol Last Admin: 11/22/19 06:28 Dose: Not Given Lorazepam (Ativan) 0.5 mg PO BID [facility] Last Admin: 11/22/19 10:01 Dose: 0.5 mg Losartan Potassium (Cozaar) 100 mg PO DAILY [facility] Last Admin: 11/22/19 10:02 Dose: 100 mg Miscellaneous Information (Remove Patch) 1 ea TRDERM Q7D [facility] Non-Formulary Medication (Dulaglutide [Trulicity]) 0.75 mg SQ Q7D [facility] Ondansetron HCl (Zofran Odt) 4 mg PO Q6H PRN PRN Reason: nausea, able to take PO Ondansetron HCl (Zofran) 4 mg IV Q6H PRN PRN Reason: Nausea/Vomiting Pantoprazole Sodium (Protonix) 40 mg PO ACBREAKFAST [facility] Last Admin: 11/22/19 05:13 Dose: 40 mg Potassium Chloride (Klor-Con 10) 10 meq PO DAILY [facility] Last Admin: 11/22/19 10:02 Dose: 10 meq Quetiapine Fumarate (Seroquel) 25 mg PO BEDTIME [facility] Last Admin: 11/21/19 21:30 Dose: 25 mg Discontinued Medications Amlodipine Besylate (Norvasc) 10 mg PO DAILY [facility] Last Admin: 11/21/19 08:49 Dose: 10 mg Hydralazine HCl (Apresoline) 10 mg IVPUSH ONETIME ONE Stop: 11/19/19 23:50 Last Admin: 11/20/19 00:19 Dose: Not Given Hydrochlorothiazide (Hydrochlorothiazide) 12.5 mg PO ONETIME STA Stop: 11/20/19 16:42 Last Admin: 11/20/19 18:01 Dose: 12.5 mg Magnesium Sulfate 4 gm/ Premix 100 mls @ 25 mls/hr IV ONETIME ONE Stop: 11/21/19 13:29 Last Admin: 11/21/19 10:32 Dose: 25 mls/hr Insulin Glargine (Lantus) 50 unit SUBCUT DAILY [facility] Last Admin: 11/20/19 13:26 Dose: Not Given Insulin Human Lispro (Humalog) 0 unit SUBCUT BIDAC [facility]; Protocol Last Admin: 11/20/19 12:05 Dose: Not Given Insulin Human Lispro (Humalog) 0 unit SUBCUT BID@0700,1700 [facility]; Protocol Last Admin: 11/20/19 09:14 Dose: 3 units Losartan Potassium (Cozaar) 100 mg PO BEDTIME [facility] Stop: 11/20/19 00:14 Last Admin: 11/20/19 00:58 Dose: 100 mg Potassium Chloride (Klor-Con M20) 20 meq PO ONETIME ONE Stop: 11/21/19 09:17 Last Admin: 11/21/19 10:32 Dose: 20 meq Potassium Chloride (Klor-Con M20) 40 meq PO ONETIME ONE Stop: 11/22/19 10:01 Last Admin: 11/22/19 10:05 Dose: 40 meq - Exam Quality Assessment: No: Supplemental Oxygen General: Alert, Oriented HEENT: Pupils Equal, Mucous Membr. Moist/[place] Neck: Supple Lungs: Clear to Auscultation, Normal Respiratory Effort Cardiovascular: Regular Rate, Regular Rhythm Extremities: Normal Inspection, Non-Tender, No Pedal Edema Skin: Warm, Dry, Intact Psy/Mental Status: Alert, Normal Affect, Normal Mood Sepsis Event Note - Evaluation Sepsis Screening Result: No Definite Risk - Focused Exam Vital Signs: Vital Signs Temp Pulse Resp BP Pulse Ox 11/22/19 10:02 127/87 11/22/19 10:00 97.9 F 66 18 127/87 98 11/22/19 05:13 98.1 F 71 18 142/72 H 95 Date Exam was Performed: 11/22/19 Time Exam was Performed: 11:24 - Problem List Review Problem List Initiated/Reviewed/Updated: Yes - My Orders Last 24 Hours: My Active Orders 11/21/19 14:00 hydrALAZINE [Apresoline] 25 mg PO Q8HR 11/21/19 20:00 cloNIDine [Catapres-TTS 1] 0.1 mg TRDERM Q7D 11/22/19 06:00 Pantoprazole [ProTONIX] 40 mg PO ACBREAKFAST 11/22/19 09:00 Cholecalciferol (Vitamin D3) [Vitamin D3] 5,000 unit PO DAILY Losartan [Cozaar] 100 mg PO DAILY Potassium Chloride [Klor-Con 10] 10 meq PO DAILY amLODIPine [Norvasc] 10 mg PO DAILY 11/23/19 05:11 CBC WITH AUTO DIFF [HEME] AM CMP [COMPREHENSIVE METABOLIC PN,CMP] [CHEM] AM MAGNESIUM [CHEM] AM 11/24/19 05:11 CBC WITH AUTO DIFF [HEME] AM CMP [COMPREHENSIVE METABOLIC PN,CMP] [CHEM] AM MAGNESIUM [CHEM] AM 11/25/19 05:11 CBC WITH AUTO DIFF [HEME] AM CMP [COMPREHENSIVE METABOLIC PN,CMP] [CHEM] AM MAGNESIUM [CHEM] AM 11/26/19 05:11 CBC WITH AUTO DIFF [HEME] AM CMP [COMPREHENSIVE METABOLIC PN,CMP] [CHEM] AM MAGNESIUM [CHEM] AM - Plan Plan:: Altered Mental Status -improved Patient wishes to return home. This month is the anniversary of her 's - Speech therapy cognitive evaluation -recommends 24-hour care - Reconsult psychiatry - Consider psychiatric inpatient if not cleared by Dr. De La Cruz Diabetes Mellitus type 2, HbA1c- 9.9% (today) Glucose at 1700 yesterday was 329 and this am 100. PLAN - Accuchecks QID AC and HS - Hypoglycemia protocol - Glargine 50u every night - High intensity sliding scale Hypertension, improved control this am SBP > 180last night but well controlled this am PLAN - restarted home meds except lasix - PRN Hydralazine - Added hydrochlorothiazide 12.5mg QD CKD stage III Hypomagnesemia Hypokalemia GFR improving PLAN - 40 meq extra K-Dur this am PROPHYLAXIS DVT- ambulation and compression stockings GI- not indicated CODE STATUS: DNR/DNI DISPOSITION: Pending placement at psychiatric hospital or home pending re-evaluation with Dr. De La Cruz.
[2019-11-22] MEDS: QUEtiapine 25 MG Tab PO SCH (21:10)
[2019-11-22] MEDS: Insulin Glarg,Human.Rec.Analog 100 Unit/ML SUBCUT SCH (21:12)
[2019-11-23] MEDS: Pantoprazole 40 MG Tab.CR PO SCH (05:52)
[2019-11-23] MEDS: hydrALAZINE 25 MG Tab PO SCH ×3 (05:53→21:37)
[2019-11-23] MEDS: Insulin Lispro 100 Units/ML 3 ML Vial SUBCUT SCH ×4 (08:17→21:39)
[2019-11-23] MEDS: LORazepam 0.5 MG Tab PO SCH ×2 (09:12→21:36)
[2019-11-23] MEDS: Hydrochlorothiazide 12.5 MG Cap PO SCH (09:12)
[2019-11-23] MEDS: FLUoxetine 20 MG Cap PO SCH (09:12)
[2019-11-23] MEDS: amLODIPine 10 MG Tab PO SCH (09:13)
[2019-11-23] MEDS: Cholecalciferol (Vitamin D3) 5,000 UNIT Tab PO SCH (09:14)
[2019-11-23] MEDS: Potassium Chloride 10 MEQ Tab.ER PO SCH (09:14)
[2019-11-23] MEDS: Losartan 100 MG Tab PO SCH (09:14)
--- NOTE | 2019-11-23 14:54 | PCM.PN ---
- General Info Date of Service: 11/23/19 Admission Dx/Problem (Free Text): Admission Diagnosis/Problem Admission Diagnosis/Problem Hyperglycemia Subjective Update: Patient doing well without any complaints. Sleeping and eating well. Functional Status: Reports: Pain Controlled - Review of Systems General: Reports: No Symptoms HEENT: Reports: No Symptoms Pulmonary: Reports: No Symptoms Cardiovascular: Reports: No Symptoms Gastrointestinal: Reports: No Symptoms Musculoskeletal: Reports: No Symptoms Neurological: Reports: No Symptoms Psychiatric: Reports: No Symptoms - Patient Data Vitals - Most Recent: Last Vital Signs Temp 98.6 F 11/23/19 11:36 Pulse 70 11/23/19 11:36 Resp 16 11/23/19 11:36 BP 148/85 H 11/23/19 11:36 Pulse Ox 99 11/23/19 11:36 Weight - Most Recent: 157 lb 12.8 oz I&O - Last 24 Hours: Intake & Output 11/22/19 11/23/19 11/23/19 22:59 06:59 14:59 Intake Total 1660 100 0 Output Total 200 500 Balance 1460 -400 0 Lab Results Last 24 Hours: Laboratory Results - last 24 hr 11/22/19 11/22/19 11/22/19 Range/Units 11:32 16:18 20:48 WBC (3.98-10.04) K/mm3 RBC (3.98-5.22) M/mm3 Hgb (11.2-15.7) gm/dl Hct (34.1-44.9) % MCV (79.4-94.8) fl MCH (25.6-32.2) pg MCHC (32.2-35.5) g/dl RDW Std Deviation (36.4-46.3) fL Plt Count (182-369) K/mm3 MPV (9.4-12.3) fl Neut % (Auto) (34.0-71.1) % Lymph % (Auto) (19.3-51.7) % [place] % (Auto) (4.7-12.5) % Eos % (Auto) (0.7-5.8) Baso % (Auto) (0.1-1.2) % Neut # (Auto) (1.56-6.13) K/mm3 Lymph # (Auto) (1.18-3.74) K/mm3 [place] # (Auto) (0.24-0.36) K/mm3 Eos # (Auto) (0.04-0.36) K/mm3 Baso # (Auto) (0.01-0.08) K/mm3 Sodium (136-145) mEq/L Potassium (3.5-5.1) mEq/L Chloride (98-107) mEq/L Carbon Dioxide (21-32) mEq/L Anion Gap (5-15) BUN (7-18) mg/dL Creatinine (0.55-1.02) mg/dL Est Cr Clr Drug Dosing mL/min Estimated GFR (MDRD) (>60) mL/min BUN/Creatinine Ratio (14-18) Glucose (83-115) mg/dL POC Glucose 226 H 294 H 205 H (83-110) mg/dL Calcium (8.5-10.1) mg/dL Magnesium (1.8-2.4) mg/dl Total Bilirubin (0.2-1.0) mg/dL AST (15-37) U/L ALT (14-59) U/L Alkaline Phosphatase (46-116) U/L Total Protein (6.4-8.2) g/dl Albumin (3.4-5.0) g/dl Globulin gm/dL Albumin/Globulin Ratio (1-2) 11/23/19 11/23/19 11/23/19 Range/Units 05:00 05:00 06:42 WBC 4.98 (3.98-10.04) K/mm3 RBC 4.25 (3.98-5.22) M/mm3 Hgb 12.1 (11.2-15.7) gm/dl Hct 35.3 (34.1-44.9) % MCV 83.1 (79.4-94.8) fl MCH 28.5 (25.6-32.2) pg MCHC 34.3 (32.2-35.5) g/dl RDW Std Deviation 38.8 (36.4-46.3) fL Plt Count 163 L (182-369) K/mm3 MPV 9.7 (9.4-12.3) fl Neut % (Auto) 64.3 (34.0-71.1) % Lymph % (Auto) 20.5 (19.3-51.7) % [place] % (Auto) 10.0 (4.7-12.5) % Eos % (Auto) 4.8 (0.7-5.8) Baso % (Auto) 0.2 (0.1-1.2) % Neut # (Auto) 3.20 (1.56-6.13) K/mm3 Lymph # (Auto) 1.02 L (1.18-3.74) K/mm3 [place] # (Auto) 0.50 H (0.24-0.36) K/mm3 Eos # (Auto) 0.24 (0.04-0.36) K/mm3 Baso # (Auto) 0.01 (0.01-0.08) K/mm3 Sodium 134 L (136-145) mEq/L Potassium 3.9 (3.5-5.1) mEq/L Chloride 102 (98-107) mEq/L Carbon Dioxide 27 (21-32) mEq/L Anion Gap 8.9 (5-15) BUN 30 H (7-18) mg/dL Creatinine 1.5 H (0.55-1.02) mg/dL Est Cr Clr Drug Dosing 26.02 mL/min Estimated GFR (MDRD) 34 (>60) mL/min BUN/Creatinine Ratio 20.0 H (14-18) Glucose 95 (83-115) mg/dL POC Glucose 99 (83-110) mg/dL Calcium 8.7 (8.5-10.1) mg/dL Magnesium 1.9 (1.8-2.4) mg/dl Total Bilirubin 0.7 (0.2-1.0) mg/dL AST 15 (15-37) U/L ALT 16 (14-59) U/L Alkaline Phosphatase 53 (46-116) U/L Total Protein 5.3 L (6.4-8.2) g/dl Albumin 2.4 L (3.4-5.0) g/dl Globulin 2.9 gm/dL Albumin/Globulin Ratio 0.8 L (1-2) 18/20 Range/Units 11:19 WBC (3.98-10.04) K/mm3 RBC (3.98-5.22) M/mm3 Hgb (11.2-15.7) gm/dl Hct (34.1-44.9) % MCV (79.4-94.8) fl MCH (25.6-32.2) pg MCHC (32.2-35.5) g/dl RDW Std Deviation (36.4-46.3) fL Plt Count (182-369) K/mm3 MPV (9.4-12.3) fl Neut % (Auto) (34.0-71.1) % Lymph % (Auto) (19.3-51.7) % [place] % (Auto) (4.7-12.5) % Eos % (Auto) (0.7-5.8) Baso % (Auto) (0.1-1.2) % Neut # (Auto) (1.56-6.13) K/mm3 Lymph # (Auto) (1.18-3.74) K/mm3 [place] # (Auto) (0.24-0.36) K/mm3 Eos # (Auto) (0.04-0.36) K/mm3 Baso # (Auto) (0.01-0.08) K/mm3 Sodium (136-145) mEq/L Potassium (3.5-5.1) mEq/L Chloride (98-107) mEq/L Carbon Dioxide (21-32) mEq/L Anion Gap (5-15) BUN (7-18) mg/dL Creatinine (0.55-1.02) mg/dL Est Cr Clr Drug Dosing mL/min Estimated GFR (MDRD) (>60) mL/min BUN/Creatinine Ratio (14-18) Glucose (83-115) mg/dL POC Glucose 114 H (83-110) mg/dL Calcium (8.5-10.1) mg/dL Magnesium (1.8-2.4) mg/dl Total Bilirubin (0.2-1.0) mg/dL AST (15-37) U/L ALT (14-59) U/L Alkaline Phosphatase (46-116) U/L Total Protein (6.4-8.2) g/dl Albumin (3.4-5.0) g/dl Globulin gm/dL Albumin/Globulin Ratio (1-2) Med Orders - Current: Current Medications Acetaminophen (Tylenol) 650 mg PO Q4H PRN PRN Reason: Pain (Mild 1-3)/fever Amlodipine Besylate (Norvasc) 10 mg PO DAILY [facility] Last Admin: 11/23/19 09:13 Dose: 10 mg Cholecalciferol (Vitamin D3) 5,000 unit PO DAILY [facility] Last Admin: 11/23/19 09:14 Dose: 5,000 unit Clonidine HCl (Catapres-Tts 1) 0.1 mg TRDERM Q7D [facility] Last Admin: 11/21/19 21:38 Dose: 0.1 mg Dextrose/Water (Dextrose 50% In Water) 50 ml IVPUSH ASDIRECTED PRN PRN Reason: Hypoglycemia Fluoxetine HCl (Prozac) 20 mg PO DAILY [facility] Last Admin: 11/23/19 09:12 Dose: 20 mg Hydralazine HCl (Apresoline) 10 mg IVPUSH Q2H PRN PRN Reason: Hypertension Last Admin: 11/20/19 03:13 Dose: 10 mg Hydralazine HCl (Apresoline) 25 mg PO Q8HR [facility] Last Admin: 11/23/19 05:53 Dose: 25 mg Hydrochlorothiazide (Hydrochlorothiazide) 12.5 mg PO DAILY [facility] Last Admin: 11/23/19 09:12 Dose: 12.5 mg Insulin Glargine (Lantus) 50 unit SUBCUT BEDTIME [facility] Last Admin: 11/22/19 21:12 Dose: 50 units Insulin Human Lispro (Humalog) 0 unit SUBCUT QIDACANDBED [facility]; Protocol Last Admin: 11/23/19 13:14 Dose: Not Given Lorazepam (Ativan) 0.5 mg PO BID [facility] Last Admin: 11/23/19 09:12 Dose: 0.5 mg Losartan Potassium (Cozaar) 100 mg PO DAILY [facility] Last Admin: 11/23/19 09:14 Dose: 100 mg Miscellaneous Information (Remove Patch) 1 ea TRDERM Q7D [facility] Ondansetron HCl (Zofran Odt) 4 mg PO Q6H PRN PRN Reason: nausea, able to take PO Ondansetron HCl (Zofran) 4 mg IV Q6H PRN PRN Reason: Nausea/Vomiting Pantoprazole Sodium (Protonix) 40 mg PO ACBREAKFAST [facility] Last Admin: 11/23/19 05:52 Dose: 40 mg Potassium Chloride (Klor-Con 10) 10 meq PO DAILY [facility] Last Admin: 11/23/19 09:14 Dose: 10 meq Quetiapine Fumarate (Seroquel) 25 mg PO BEDTIME [facility] Last Admin: 11/22/19 21:10 Dose: 25 mg Discontinued Medications Amlodipine Besylate (Norvasc) 10 mg PO DAILY [facility] Last Admin: 11/21/19 08:49 Dose: 10 mg Hydralazine HCl (Apresoline) 10 mg IVPUSH ONETIME ONE Stop: 11/19/19 23:50 Last Admin: 11/20/19 00:19 Dose: Not Given Hydrochlorothiazide (Hydrochlorothiazide) 12.5 mg PO ONETIME STA Stop: 11/20/19 16:42 Last Admin: 11/20/19 18:01 Dose: 12.5 mg Magnesium Sulfate 4 gm/ Premix 100 mls @ 25 mls/hr IV ONETIME ONE Stop: 11/21/19 13:29 Last Admin: 11/21/19 10:32 Dose: 25 mls/hr Insulin Glargine (Lantus) 50 unit SUBCUT DAILY [facility] Last Admin: 11/20/19 13:26 Dose: Not Given Insulin Human Lispro (Humalog) 0 unit SUBCUT BIDAC [facility]; Protocol Last Admin: 11/20/19 12:05 Dose: Not Given Insulin Human Lispro (Humalog) 0 unit SUBCUT BID@0700,1700 [facility]; Protocol Last Admin: 11/20/19 09:14 Dose: 3 units Losartan Potassium (Cozaar) 100 mg PO BEDTIME STA Stop: 11/20/19 00:14 Last Admin: 11/20/19 00:58 Dose: 100 mg Non-Formulary Medication (Dulaglutide [Trulicity]) 0.75 mg SQ Q7D [facility] Potassium Chloride (Klor-Con M20) 20 meq PO ONETIME ONE Stop: 11/21/19 09:17 Last Admin: 11/21/19 10:32 Dose: 20 meq Potassium Chloride (Klor-Con M20) 40 meq PO ONETIME ONE Stop: 11/22/19 10:01 Last Admin: 11/22/19 10:05 Dose: 40 meq - Exam General: Alert, Oriented HEENT: Pupils Equal, Mucous Membr. Moist/[place] Neck: Supple Lungs: Clear to Auscultation, Normal Respiratory Effort Cardiovascular: Regular Rate, Regular Rhythm Extremities: Normal Inspection, Normal Range of Motion, Non-Tender, No Pedal Edema Skin: Warm, Dry, Intact Psy/Mental Status: Alert Sepsis Event Note - Evaluation Sepsis Screening Result: No Definite Risk - Focused Exam Vital Signs: Vital Signs Temp Pulse Resp BP Pulse Ox 11/23/19 11:36 98.6 F 70 16 148/85 H 99 11/23/19 09:14 149/70 H 11/23/19 09:13 149/70 H 11/23/19 08:14 89 149/70 H 97 11/23/19 05:53 170/68 H 11/23/19 05:52 170/68 H 11/23/19 04:03 98.4 F 74 18 136/86 95 Date Exam was Performed: 11/23/19 Time Exam was Performed: 14:49 - Problem List Review Problem List Initiated/Reviewed/Updated: Yes - My Orders Last 24 Hours: My Active Orders 11/24/19 05:11 CBC WITH AUTO DIFF [HEME] AM CMP [COMPREHENSIVE METABOLIC PN,CMP] [CHEM] AM MAGNESIUM [CHEM] AM 11/25/19 05:11 CBC WITH AUTO DIFF [HEME] AM CMP [COMPREHENSIVE METABOLIC PN,CMP] [CHEM] AM MAGNESIUM [CHEM] AM 11/26/19 05:11 CBC WITH AUTO DIFF [HEME] AM CMP [COMPREHENSIVE METABOLIC PN,CMP] [CHEM] AM MAGNESIUM [CHEM] AM - Plan Plan:: Altered Mental Status -improved Patient wishes to return home. This month is the anniversary of her 's - Speech therapy cognitive evaluation -recommends 24-hour care - Reconsult psychiatry - Psychiatric hospital not needed. - Awaiting families decision if they can provided 24/7 care. Diabetes Mellitus type 2, HbA1c- 9.9% (today) Glucose at 1700 yesterday was 329 and this am 100. PLAN - Accuchecks QID AC and HS - Hypoglycemia protocol - Glargine 50u every night - High intensity sliding scale Hypertension, improved control this am SBP > 180last night but well controlled this am PLAN - restarted home meds except lasix - PRN Hydralazine - Added hydrochlorothiazide 12.5mg QD Subclinical hypothyroidism - TSH 6.076 (elevated), free T4 0.84 (normal) CKD stage III Hypomagnesemia Hypokalemia GFR improving PLAN - Continue following PROPHYLAXIS DVT- ambulation and compression stockings GI- not indicated CODE STATUS: DNR/DNI DISPOSITION: Pending placement at psychiatric hospital or home pending Length of stay greater than 96 hours secondary to inability to obtain placement.
[2019-11-23] MEDS: QUEtiapine 25 MG Tab PO SCH (21:36)
[2019-11-23] MEDS: Insulin Glarg,Human.Rec.Analog 100 Unit/ML SUBCUT SCH (21:38)
[2019-11-24] MEDS: hydrALAZINE 25 MG Tab PO SCH ×3 (05:27→21:12)
[2019-11-24] MEDS: Pantoprazole 40 MG Tab.CR PO SCH (05:27)
[2019-11-24] MEDS ORDERED: Magnesium Hydroxide 400 MG/5 ML Susp 30 ML Cup PO ONE (06:00)
[2019-11-24] MEDS: Insulin Lispro 100 Units/ML 3 ML Vial SUBCUT SCH ×4 (07:59→21:11)
[2019-11-24] MEDS: LORazepam 0.5 MG Tab PO SCH ×2 (08:00→21:12)
[2019-11-24] MEDS ORDERED: Sodium Chloride 0.9% 1,000 ML IV SCH (08:00)
[2019-11-24] MEDS: amLODIPine 10 MG Tab PO SCH (08:00)
[2019-11-24] MEDS: FLUoxetine 20 MG Cap PO SCH (08:01)
[2019-11-24] MEDS: Cholecalciferol (Vitamin D3) 5,000 UNIT Tab PO SCH (08:01)
[2019-11-24] MEDS: Potassium Chloride 10 MEQ Tab.ER PO SCH (08:01)
[2019-11-24] MEDS: Metoprolol Tartrate 50 MG Tab PO SCH ×2 (08:08→21:14)
--- NOTE | 2019-11-24 13:23 | PCM.PN ---
- General Info Date of Service: 11/24/19 Admission Dx/Problem (Free Text): Admission Diagnosis/Problem Admission Diagnosis/Problem Hyperglycemia Subjective Update: She is without complaints. Functional Status: Reports: Pain Controlled - Review of Systems General: Reports: No Symptoms HEENT: Reports: No Symptoms Pulmonary: Reports: No Symptoms Cardiovascular: Reports: No Symptoms Gastrointestinal: Reports: No Symptoms - Patient Data Vitals - Most Recent: Last Vital Signs Temp 97.9 F 11/24/19 07:57 Pulse 76 11/24/19 08:08 Resp 18 11/24/19 07:57 BP 134/63 11/24/19 08:08 Pulse Ox 100 11/24/19 07:57 Weight - Most Recent: 160 lb I&O - Last 24 Hours: Intake & Output 11/23/19 11/24/19 11/24/19 22:59 06:59 14:59 Intake Total 920 800 240 Output Total 550 200 Balance 370 600 240 Lab Results Last 24 Hours: Laboratory Results - last 24 hr 11/23/19 11/23/19 11/24/19 Range/Units 17:34 21:15 05:23 WBC 5.58 (3.98-10.04) K/mm3 RBC 4.22 (3.98-5.22) M/mm3 Hgb 11.8 (11.2-15.7) gm/dl Hct 35.7 (34.1-44.9) % MCV 84.6 (79.4-94.8) fl MCH 28.0 (25.6-32.2) pg MCHC 33.1 (32.2-35.5) g/dl RDW Std Deviation 40.1 (36.4-46.3) fL Plt Count 172 L (182-369) K/mm3 MPV 10.0 (9.4-12.3) fl Neut % (Auto) 63.1 (34.0-71.1) % Lymph % (Auto) 24.0 (19.3-51.7) % [place] % (Auto) 9.1 (4.7-12.5) % Eos % (Auto) 3.4 (0.7-5.8) Baso % (Auto) 0.2 (0.1-1.2) % Neut # (Auto) 3.52 (1.56-6.13) K/mm3 Lymph # (Auto) 1.34 (1.18-3.74) K/mm3 [place] # (Auto) 0.51 H (0.24-0.36) K/mm3 Eos # (Auto) 0.19 (0.04-0.36) K/mm3 Baso # (Auto) 0.01 (0.01-0.08) K/mm3 Sodium (136-145) mEq/L Potassium (3.5-5.1) mEq/L Chloride (98-107) mEq/L Carbon Dioxide (21-32) mEq/L Anion Gap (5-15) BUN (7-18) mg/dL Creatinine (0.55-1.02) mg/dL Est Cr Clr Drug Dosing mL/min Estimated GFR (MDRD) (>60) mL/min BUN/Creatinine Ratio (14-18) Glucose (83-115) mg/dL POC Glucose 180 H 219 H (83-110) mg/dL Calcium (8.5-10.1) mg/dL Magnesium (1.8-2.4) mg/dl Total Bilirubin (0.2-1.0) mg/dL AST (15-37) U/L ALT (14-59) U/L Alkaline Phosphatase (46-116) U/L Total Protein (6.4-8.2) g/dl Albumin (3.4-5.0) g/dl Globulin gm/dL Albumin/Globulin Ratio (1-2) 11/24/19 11/24/19 11/24/19 Range/Units 05:23 06:34 06:58 WBC (3.98-10.04) K/mm3 RBC (3.98-5.22) M/mm3 Hgb (11.2-15.7) gm/dl Hct (34.1-44.9) % MCV (79.4-94.8) fl MCH (25.6-32.2) pg MCHC (32.2-35.5) g/dl RDW Std Deviation (36.4-46.3) fL Plt Count (182-369) K/mm3 MPV (9.4-12.3) fl Neut % (Auto) (34.0-71.1) % Lymph % (Auto) (19.3-51.7) % [place] % (Auto) (4.7-12.5) % Eos % (Auto) (0.7-5.8) Baso % (Auto) (0.1-1.2) % Neut # (Auto) (1.56-6.13) K/mm3 Lymph # (Auto) (1.18-3.74) K/mm3 [place] # (Auto) (0.24-0.36) K/mm3 Eos # (Auto) (0.04-0.36) K/mm3 Baso # (Auto) (0.01-0.08) K/mm3 Sodium 136 (136-145) mEq/L Potassium 4.0 (3.5-5.1) mEq/L Chloride 102 (98-107) mEq/L Carbon Dioxide 29 (21-32) mEq/L Anion Gap 9.0 (5-15) BUN 33 H (7-18) mg/dL Creatinine 1.7 H (0.55-1.02) mg/dL Est Cr Clr Drug Dosing 22.96 mL/min Estimated GFR (MDRD) 29 (>60) mL/min BUN/Creatinine Ratio 19.4 H (14-18) Glucose 71 L (83-115) mg/dL POC Glucose 75 L 73 L (83-110) mg/dL Calcium 8.9 (8.5-10.1) mg/dL Magnesium 1.8 (1.8-2.4) mg/dl Total Bilirubin 0.7 (0.2-1.0) mg/dL AST 13 L (15-37) U/L ALT 18 (14-59) U/L Alkaline Phosphatase 60 (46-116) U/L Total Protein 5.4 L (6.4-8.2) g/dl Albumin 2.4 L (3.4-5.0) g/dl Globulin 3.0 gm/dL Albumin/Globulin Ratio 0.8 L (1-2) 11/24/19 Range/Units 11:34 WBC (3.98-10.04) K/mm3 RBC (3.98-5.22) M/mm3 Hgb (11.2-15.7) gm/dl Hct (34.1-44.9) % MCV (79.4-94.8) fl MCH (25.6-32.2) pg MCHC (32.2-35.5) g/dl RDW Std Deviation (36.4-46.3) fL Plt Count (182-369) K/mm3 MPV (9.4-12.3) fl Neut % (Auto) (34.0-71.1) % Lymph % (Auto) (19.3-51.7) % [place] % (Auto) (4.7-12.5) % Eos % (Auto) (0.7-5.8) Baso % (Auto) (0.1-1.2) % Neut # (Auto) (1.56-6.13) K/mm3 Lymph # (Auto) (1.18-3.74) K/mm3 [place] # (Auto) (0.24-0.36) K/mm3 Eos # (Auto) (0.04-0.36) K/mm3 Baso # (Auto) (0.01-0.08) K/mm3 Sodium (136-145) mEq/L Potassium (3.5-5.1) mEq/L Chloride (98-107) mEq/L Carbon Dioxide (21-32) mEq/L Anion Gap (5-15) BUN (7-18) mg/dL Creatinine (0.55-1.02) mg/dL Est Cr Clr Drug Dosing mL/min Estimated GFR (MDRD) (>60) mL/min BUN/Creatinine Ratio (14-18) Glucose (83-115) mg/dL POC Glucose 147 H (83-110) mg/dL Calcium (8.5-10.1) mg/dL Magnesium (1.8-2.4) mg/dl Total Bilirubin (0.2-1.0) mg/dL AST (15-37) U/L ALT (14-59) U/L Alkaline Phosphatase (46-116) U/L Total Protein (6.4-8.2) g/dl Albumin (3.4-5.0) g/dl Globulin gm/dL Albumin/Globulin Ratio (1-2) Med Orders - Current: Current Medications Acetaminophen (Tylenol) 650 mg PO Q4H PRN PRN Reason: Pain (Mild 1-3)/fever Amlodipine Besylate (Norvasc) 10 mg PO DAILY [facility] Last Admin: 11/24/19 08:00 Dose: 10 mg Cholecalciferol (Vitamin D3) 5,000 unit PO DAILY [facility] Last Admin: 11/24/19 08:01 Dose: 5,000 unit Clonidine HCl (Catapres-Tts 1) 0.1 mg TRDERM Q7D [facility] Last Admin: 11/21/19 21:38 Dose: 0.1 mg Dextrose/Water (Dextrose 50% In Water) 50 ml IVPUSH ASDIRECTED PRN PRN Reason: Hypoglycemia Fluoxetine HCl (Prozac) 20 mg PO DAILY [facility] Last Admin: 11/24/19 08:01 Dose: 20 mg Hydralazine HCl (Apresoline) 10 mg IVPUSH Q2H PRN PRN Reason: Hypertension Last Admin: 11/20/19 03:13 Dose: 10 mg Hydralazine HCl (Apresoline) 25 mg PO Q8HR [facility] Last Admin: 11/24/19 05:27 Dose: 25 mg Sodium Chloride (Normal Saline) 1,000 mls @ 100 mls/hr IV ASDIRECTED [facility] Stop: 11/24/19 17:59 Last Admin: 11/24/19 08:05 Dose: 100 mls/hr Insulin Glargine (Lantus) 50 unit SUBCUT BEDTIME [facility] Last Admin: 11/23/19 21:38 Dose: 50 units Insulin Human Lispro (Humalog) 0 unit SUBCUT QIDACANDBED [facility]; Protocol Last Admin: 11/24/19 11:39 Dose: Not Given Lorazepam (Ativan) 0.5 mg PO BID [facility] Last Admin: 11/24/19 08:00 Dose: 0.5 mg Metoprolol Tartrate (Lopressor) 50 mg PO Q12H [facility] Last Admin: 11/24/19 08:08 Dose: 50 mg Miscellaneous Information (Remove Patch) 1 ea TRDERM Q7D [facility] Ondansetron HCl (Zofran Odt) 4 mg PO Q6H PRN PRN Reason: nausea, able to take PO Ondansetron HCl (Zofran) 4 mg IV Q6H PRN PRN Reason: Nausea/Vomiting Pantoprazole Sodium (Protonix) 40 mg PO ACBREAKFAST [facility] Last Admin: 11/24/19 05:27 Dose: 40 mg Potassium Chloride (Klor-Con 10) 10 meq PO DAILY [facility] Last Admin: 11/24/19 08:01 Dose: 10 meq Quetiapine Fumarate (Seroquel) 25 mg PO BEDTIME [facility] Last Admin: 11/23/19 21:36 Dose: 25 mg Discontinued Medications Amlodipine Besylate (Norvasc) 10 mg PO DAILY [facility] Last Admin: 11/21/19 08:49 Dose: 10 mg Hydralazine HCl (Apresoline) 10 mg IVPUSH ONETIME ONE Stop: 11/19/19 23:50 Last Admin: 11/20/19 00:19 Dose: Not Given Hydrochlorothiazide (Hydrochlorothiazide) 12.5 mg PO DAILY [facility] Last Admin: 11/23/19 09:12 Dose: 12.5 mg Hydrochlorothiazide (Hydrochlorothiazide) 12.5 mg PO ONETIME [facility] Stop: 11/20/19 16:42 Last Admin: 11/20/19 18:01 Dose: 12.5 mg Magnesium Sulfate 4 gm/ Premix 100 mls @ 25 mls/hr IV ONETIME ONE Stop: 11/21/19 13:29 Last Admin: 11/21/19 10:32 Dose: 25 mls/hr Insulin Glargine (Lantus) 50 unit SUBCUT DAILY [facility] Last Admin: 11/20/19 13:26 Dose: Not Given Insulin Human Lispro (Humalog) 0 unit SUBCUT BIDAC [facility]; Protocol Last Admin: 11/20/19 12:05 Dose: Not Given Insulin Human Lispro (Humalog) 0 unit SUBCUT BID@0700,1700 [facility]; Protocol Last Admin: 11/20/19 09:14 Dose: 3 units Insulin Human Lispro (Humalog) 0 unit SUBCUT QIDACANDBED [facility]; Protocol Last Admin: 11/24/19 07:59 Dose: Not Given Losartan Potassium (Cozaar) 100 mg PO BEDTIME [facility] Stop: 11/20/19 00:14 Last Admin: 11/20/19 00:58 Dose: 100 mg Losartan Potassium (Cozaar) 100 mg PO DAILY [facility] Last Admin: 11/23/19 09:14 Dose: 100 mg Magnesium Hydroxide (Milk Of Magnesia) 30 ml PO ONETIME ONE Stop: 11/24/19 06:01 Last Admin: 11/24/19 05:27 Dose: 30 ml Non-Formulary Medication (Dulaglutide [Trulicity]) 0.75 mg SQ Q7D [facility] Potassium Chloride (Klor-Con M20) 20 meq PO ONETIME ONE Stop: 11/21/19 09:17 Last Admin: 11/21/19 10:32 Dose: 20 meq Potassium Chloride (Klor-Con M20) 40 meq PO ONETIME ONE Stop: 11/22/19 10:01 Last Admin: 11/22/19 10:05 Dose: 40 meq - Exam General: Alert HEENT: Pupils Equal Neck: Supple Lungs: Clear to Auscultation, Normal Respiratory Effort Cardiovascular: Regular Rate, Regular Rhythm GI/Abdominal Exam: Normal Bowel Sounds, Soft, Non-Tender, No Distention Extremities: Non-Tender, No Pedal Edema Skin: Warm, Dry, Intact Neurological: No New Focal Deficit Psy/Mental Status: Alert, Normal Affect, Normal Mood Sepsis Event Note - Evaluation Sepsis Screening Result: No Definite Risk - Focused Exam Vital Signs: Vital Signs Temp Pulse Resp BP Pulse Ox 11/24/19 08:08 76 134/63 11/24/19 08:00 134/63 11/24/19 07:57 97.9 F 76 18 134/63 100 11/24/19 05:27 157/86 H 11/24/19 05:26 74 93 L 11/24/19 05:25 98.4 F 72 17 157/86 H 92 L Date Exam was Performed: 11/24/19 Time Exam was Performed: 13:15 - Problem List Review Problem List Initiated/Reviewed/Updated: Yes - My Orders Last 24 Hours: My Active Orders 11/24/19 08:00 Sodium Chloride 0.9% [Normal Saline] 1,000 ml IV ASDIRECTED 11/24/19 09:00 Metoprolol Tartrate [Lopressor] 50 mg PO Q12H 11/24/19 11:00 Insulin Lispro [HumaLOG] See Protocol SUBCUT QIDACANDBED 11/25/19 05:11 CBC WITH AUTO DIFF [HEME] AM CMP [COMPREHENSIVE METABOLIC PN,CMP] [CHEM] AM MAGNESIUM [CHEM] AM 11/26/19 05:11 CBC WITH AUTO DIFF [HEME] AM CMP [COMPREHENSIVE METABOLIC PN,CMP] [CHEM] AM MAGNESIUM [CHEM] AM - Plan Plan:: Altered Mental Status -improved - Speech therapy cognitive evaluation -recommends 24-hour care - Reconsulted psychiatry - Psychiatric hospital not needed. - Awaiting families decision if they can provided 24/7 care. Diabetes Mellitus type 2, HbA1c- 9.9% Glucose control improved PLAN - Accuchecks QID AC and HS - Hypoglycemia protocol - Glargine 50u every night -Medium intensity sliding scale Hypertension, improved control this am Improved, but renal function has worsened PLAN -Stop losartan and hydrochlorothiazide -Start metoprolol 50 mg twice daily - PRN Hydralazine -Recheck CMP in the morning Subclinical hypothyroidism - TSH 6.076 (elevated), free T4 0.84 (normal) CKD stage III -deteriorated Creatinine increased to 1.7 -Stop losartan and hydrochlorothiazide -Start metoprolol 50 mg twice daily Hypomagnesemia -resolved Hypokalemia PLAN - Continue following PROPHYLAXIS DVT- ambulation and compression stockings GI- not indicated CODE STATUS: DNR/DNI DISPOSITION: Pending placement at psychiatric hospital or home pending Length of stay greater than 96 hours secondary to inability to obtain placement.
[2019-11-24] MEDS: QUEtiapine 25 MG Tab PO SCH (21:13)
[2019-11-24] MEDS: Insulin Glarg,Human.Rec.Analog 100 Unit/ML SUBCUT SCH (21:14)
[2019-11-25] MEDS: Pantoprazole 40 MG Tab.CR PO SCH (06:51)
[2019-11-25] MEDS: hydrALAZINE 25 MG Tab PO SCH ×3 (06:51→21:57)
[2019-11-25] MEDS: Insulin Lispro 100 Units/ML 3 ML Vial SUBCUT SCH ×4 (07:37→21:57)
[2019-11-25] MEDS ORDERED: Magnesium Sulfate/Water 2 GM in Premix Bag 1 BAG IV ONE (07:55)
[2019-11-25] MEDS: FLUoxetine 20 MG Cap PO SCH (08:00)
[2019-11-25] MEDS: LORazepam 0.5 MG Tab PO SCH (08:00)
[2019-11-25] MEDS: Cholecalciferol (Vitamin D3) 5,000 UNIT Tab PO SCH (08:01)
[2019-11-25] MEDS: Potassium Chloride 10 MEQ Tab.ER PO SCH (08:01)
[2019-11-25] MEDS: Metoprolol Tartrate 50 MG Tab PO SCH ×2 (08:01→20:40)
[2019-11-25] MEDS: amLODIPine 10 MG Tab PO SCH (08:01)
--- NOTE | 2019-11-25 12:31 | PCM.PN ---
- General Info Date of Service: 11/25/19 Admission Dx/Problem (Free Text): Admission Diagnosis/Problem Admission Diagnosis/Problem Hyperglycemia Subjective Update: Patient did not speak to me this morning. Functional Status: Reports: Pain Controlled - Review of Systems General: Reports: No Symptoms, Other (Patient did not speak to me this morning) - Patient Data Vitals - Most Recent: Last Vital Signs Temp 97.5 F 11/25/19 11:53 Pulse 57 L 11/25/19 11:53 Resp 19 11/25/19 11:53 BP 146/78 H 11/25/19 11:53 Pulse Ox 98 11/25/19 11:53 Weight - Most Recent: 165 lb 4.8 oz I&O - Last 24 Hours: Intake & Output 11/24/19 11/25/19 11/25/19 22:59 06:59 14:59 Intake Total 1632 500 Output Total 700 600 Balance 932 -100 Lab Results Last 24 Hours: Laboratory Results - last 24 hr 11/24/19 11/24/19 11/24/19 Range/Units 08:34 17:17 20:54 WBC (3.98-10.04) K/mm3 RBC (3.98-5.22) M/mm3 Hgb (11.2-15.7) gm/dl Hct (34.1-44.9) % MCV (79.4-94.8) fl MCH (25.6-32.2) pg MCHC (32.2-35.5) g/dl RDW Std Deviation (36.4-46.3) fL Plt Count (182-369) K/mm3 MPV (9.4-12.3) fl Neut % (Auto) (34.0-71.1) % Lymph % (Auto) (19.3-51.7) % Bureau % (Auto) (4.7-12.5) % Eos % (Auto) (0.7-5.8) Baso % (Auto) (0.1-1.2) % Neut # (Auto) (1.56-6.13) K/mm3 Lymph # (Auto) (1.18-3.74) K/mm3 Bureau # (Auto) (0.24-0.36) K/mm3 Eos # (Auto) (0.04-0.36) K/mm3 Baso # (Auto) (0.01-0.08) K/mm3 Sodium (136-145) mEq/L Potassium (3.5-5.1) mEq/L Chloride (98-107) mEq/L Carbon Dioxide (21-32) mEq/L Anion Gap (5-15) BUN (7-18) mg/dL Creatinine (0.55-1.02) mg/dL Est Cr Clr Drug Dosing mL/min Estimated GFR (MDRD) (>60) mL/min BUN/Creatinine Ratio (14-18) Glucose (83-115) mg/dL POC Glucose 170 H 282 H 204 H (83-110) mg/dL Calcium (8.5-10.1) mg/dL Magnesium (1.8-2.4) mg/dl Total Bilirubin (0.2-1.0) mg/dL AST (15-37) U/L ALT (14-59) U/L Alkaline Phosphatase (46-116) U/L Total Protein (6.4-8.2) g/dl Albumin (3.4-5.0) g/dl Globulin gm/dL Albumin/Globulin Ratio (1-2) 11/25/19 11/25/19 11/25/19 Range/Units 05:20 05:20 06:12 WBC 5.79 (3.98-10.04) K/mm3 RBC 3.97 L (3.98-5.22) M/mm3 Hgb 11.2 (11.2-15.7) gm/dl Hct 33.7 L (34.1-44.9) % MCV 84.9 (79.4-94.8) fl MCH 28.2 (25.6-32.2) pg MCHC 33.2 (32.2-35.5) g/dl RDW Std Deviation 39.9 (36.4-46.3) fL Plt Count 173 L (182-369) K/mm3 MPV 10.3 (9.4-12.3) fl Neut % (Auto) 60.6 (34.0-71.1) % Lymph % (Auto) 25.6 (19.3-51.7) % Bureau % (Auto) 9.3 (4.7-12.5) % Eos % (Auto) 4.0 (0.7-5.8) Baso % (Auto) 0.2 (0.1-1.2) % Neut # (Auto) 3.51 (1.56-6.13) K/mm3 Lymph # (Auto) 1.48 (1.18-3.74) K/mm3 Bureau # (Auto) 0.54 H (0.24-0.36) K/mm3 Eos # (Auto) 0.23 (0.04-0.36) K/mm3 Baso # (Auto) 0.01 (0.01-0.08) K/mm3 Sodium 138 (136-145) mEq/L Potassium 4.1 (3.5-5.1) mEq/L Chloride 103 (98-107) mEq/L Carbon Dioxide 29 (21-32) mEq/L Anion Gap 10.1 (5-15) BUN 35 H (7-18) mg/dL Creatinine 1.6 H (0.55-1.02) mg/dL Est Cr Clr Drug Dosing 24.40 mL/min Estimated GFR (MDRD) 32 (>60) mL/min BUN/Creatinine Ratio 21.9 H (14-18) Glucose 96 (83-115) mg/dL POC Glucose 87 (83-110) mg/dL Calcium 8.9 (8.5-10.1) mg/dL Magnesium 1.7 L (1.8-2.4) mg/dl Total Bilirubin 0.7 (0.2-1.0) mg/dL AST 18 (15-37) U/L ALT 21 (14-59) U/L Alkaline Phosphatase 66 (46-116) U/L Total Protein 5.3 L (6.4-8.2) g/dl Albumin 2.3 L (3.4-5.0) g/dl Globulin 3.0 gm/dL Albumin/Globulin Ratio 0.8 L (1-2) 11/25/19 Range/Units 10:53 WBC (3.98-10.04) K/mm3 RBC (3.98-5.22) M/mm3 Hgb (11.2-15.7) gm/dl Hct (34.1-44.9) % MCV (79.4-94.8) fl MCH (25.6-32.2) pg MCHC (32.2-35.5) g/dl RDW Std Deviation (36.4-46.3) fL Plt Count (182-369) K/mm3 MPV (9.4-12.3) fl Neut % (Auto) (34.0-71.1) % Lymph % (Auto) (19.3-51.7) % Bureau % (Auto) (4.7-12.5) % Eos % (Auto) (0.7-5.8) Baso % (Auto) (0.1-1.2) % Neut # (Auto) (1.56-6.13) K/mm3 Lymph # (Auto) (1.18-3.74) K/mm3 Bureau # (Auto) (0.24-0.36) K/mm3 Eos # (Auto) (0.04-0.36) K/mm3 Baso # (Auto) (0.01-0.08) K/mm3 Sodium (136-145) mEq/L Potassium (3.5-5.1) mEq/L Chloride (98-107) mEq/L Carbon Dioxide (21-32) mEq/L Anion Gap (5-15) BUN (7-18) mg/dL Creatinine (0.55-1.02) mg/dL Est Cr Clr Drug Dosing mL/min Estimated GFR (MDRD) (>60) mL/min BUN/Creatinine Ratio (14-18) Glucose (83-115) mg/dL POC Glucose 117 H (83-110) mg/dL Calcium (8.5-10.1) mg/dL Magnesium (1.8-2.4) mg/dl Total Bilirubin (0.2-1.0) mg/dL AST (15-37) U/L ALT (14-59) U/L Alkaline Phosphatase (46-116) U/L Total Protein (6.4-8.2) g/dl Albumin (3.4-5.0) g/dl Globulin gm/dL Albumin/Globulin Ratio (1-2) Med Orders - Current: Current Medications Acetaminophen (Tylenol) 650 mg PO Q4H PRN PRN Reason: Pain (Mild 1-3)/fever Amlodipine Besylate (Norvasc) 10 mg PO DAILY [facility] Last Admin: 11/25/19 08:01 Dose: 10 mg Cholecalciferol (Vitamin D3) 5,000 unit PO DAILY [facility] Last Admin: 11/25/19 08:01 Dose: 5,000 unit Clonidine HCl (Catapres-Tts 1) 0.1 mg TRDERM Q7D [facility] Last Admin: 11/21/19 21:38 Dose: 0.1 mg Dextrose/Water (Dextrose 50% In Water) 50 ml IVPUSH ASDIRECTED PRN PRN Reason: Hypoglycemia Fluoxetine HCl (Prozac) 20 mg PO DAILY [facility] Last Admin: 11/25/19 08:00 Dose: 20 mg Hydralazine HCl (Apresoline) 10 mg IVPUSH Q2H PRN PRN Reason: Hypertension Last Admin: 11/20/19 03:13 Dose: 10 mg Hydralazine HCl (Apresoline) 25 mg PO Q8HR [facility] Last Admin: 11/25/19 06:51 Dose: 25 mg Insulin Glargine (Lantus) 50 unit SUBCUT BEDTIME [facility] Last Admin: 11/24/19 21:14 Dose: 50 units Insulin Human Lispro (Humalog) 0 unit SUBCUT QIDACANDBED [facility]; Protocol Last Admin: 11/25/19 07:37 Dose: Not Given Lorazepam (Ativan) 0.5 mg PO BID [facility] Last Admin: 11/25/19 08:00 Dose: 0.5 mg Metoprolol Tartrate (Lopressor) 50 mg PO Q12H [facility] Last Admin: 11/25/19 08:01 Dose: 50 mg Miscellaneous Information (Remove Patch) 1 ea TRDERM Q7D [facility] Ondansetron HCl (Zofran Odt) 4 mg PO Q6H PRN PRN Reason: nausea, able to take PO Ondansetron HCl (Zofran) 4 mg IV Q6H PRN PRN Reason: Nausea/Vomiting Pantoprazole Sodium (Protonix) 40 mg PO ACBREAKFAST [facility] Last Admin: 11/25/19 06:51 Dose: 40 mg Potassium Chloride (Klor-Con 10) 10 meq PO DAILY [facility] Last Admin: 11/25/19 08:01 Dose: 10 meq Quetiapine Fumarate (Seroquel) 25 mg PO BEDTIME [facility] Last Admin: 11/24/19 21:13 Dose: 25 mg Discontinued Medications Amlodipine Besylate (Norvasc) 10 mg PO DAILY [facility] Last Admin: 11/21/19 08:49 Dose: 10 mg Hydralazine HCl (Apresoline) 10 mg IVPUSH ONETIME ONE Stop: 11/19/19 23:50 Last Admin: 11/20/19 00:19 Dose: Not Given Hydrochlorothiazide (Hydrochlorothiazide) 12.5 mg PO DAILY [facility] Last Admin: 11/23/19 09:12 Dose: 12.5 mg Hydrochlorothiazide (Hydrochlorothiazide) 12.5 mg PO ONETIME STA Stop: 11/20/19 16:42 Last Admin: 11/20/19 18:01 Dose: 12.5 mg Magnesium Sulfate 4 gm/ Premix 100 mls @ 25 mls/hr IV ONETIME ONE Stop: 11/21/19 13:29 Last Admin: 11/21/19 10:32 Dose: 25 mls/hr Sodium Chloride (Normal Saline) 1,000 mls @ 100 mls/hr IV ASDIRECTED [facility] Stop: 11/24/19 17:59 Last Admin: 11/24/19 08:05 Dose: 100 mls/hr Magnesium Sulfate 2 gm/ Premix 50 mls @ 25 mls/hr IV ONETIME ONE Stop: 11/25/19 09:54 Last Admin: 11/25/19 08:02 Dose: 25 mls/hr Insulin Glargine (Lantus) 50 unit SUBCUT DAILY [facility] Last Admin: 11/20/19 13:26 Dose: Not Given Insulin Human Lispro (Humalog) 0 unit SUBCUT BIDAC [facility]; Protocol Last Admin: 11/20/19 12:05 Dose: Not Given Insulin Human Lispro (Humalog) 0 unit SUBCUT BID@0700,1700 [facility]; Protocol Last Admin: 11/20/19 09:14 Dose: 3 units Insulin Human Lispro (Humalog) 0 unit SUBCUT QIDACANDBED [facility]; Protocol Last Admin: 11/24/19 07:59 Dose: Not Given Losartan Potassium (Cozaar) 100 mg PO BEDTIME STA Stop: 11/20/19 00:14 Last Admin: 11/20/19 00:58 Dose: 100 mg Losartan Potassium (Cozaar) 100 mg PO DAILY [facility] Last Admin: 11/23/19 09:14 Dose: 100 mg Magnesium Hydroxide (Milk Of Magnesia) 30 ml PO ONETIME ONE Stop: 11/24/19 06:01 Last Admin: 11/24/19 05:27 Dose: 30 ml Non-Formulary Medication (Dulaglutide [Trulicity]) 0.75 mg SQ Q7D [facility]OR Potassium Chloride (Klor-Con M20) 20 meq PO ONETIME ONE Stop: 11/21/19 09:17 Last Admin: 11/21/19 10:32 Dose: 20 meq Potassium Chloride (Klor-Con M20) 40 meq PO ONETIME ONE Stop: 11/22/19 10:01 Last Admin: 11/22/19 10:05 Dose: 40 meq - Exam Quality Assessment: Supplemental Oxygen, Urine Catheter General: Alert, Oriented HEENT: Pupils Equal, Mucous Membr. Moist/[place]ck: Supple Lungs: Clear to Auscultation, Normal Respiratory Effort Cardiovascular: Regular Rate, Regular Rhythm GI/Abdominal Exam: Normal Bowel Sounds, Non-Tender, No Distention Back Exam: Normal Inspection Extremities: Normal Inspection, Normal Range of Motion, Non-Tender, No Pedal Edema Skin: Warm, Dry, Intact Psy/Mental Status: Alert, Normal Affect, Normal Mood Sepsis Event Note - Evaluation Sepsis Screening Result: No Definite Risk - Focused Exam Vital Signs: Vital Signs Temp Pulse Resp BP Pulse Ox 11/25/19 11:53 97.5 F 57 L 19 146/78 H 98 11/25/19 08:01 60 164/83 H 11/25/19 07:48 98.1 F 60 19 164/83 H 98 11/25/19 06:52 152/59 H 11/25/19 06:51 152/59 H 11/25/19 05:24 57 L 156/56 H 93 L 11/25/19 03:57 65 171/65 H 98 Date Exam was Performed: 11/25/19 Time Exam was Performed: 14:04 - Problem List Review Problem List Initiated/Reviewed/Updated: Yes - My Orders Last 24 Hours: My Active Orders 11/26/19 05:11 CBC WITH AUTO DIFF [HEME] AM CMP [COMPREHENSIVE METABOLIC PN,CMP] [CHEM] AM MAGNESIUM [CHEM] AM - Plan Plan:: Altered Mental Status -deteriorated -Patient is having particularly poor 24 hours. She is more confused. - Speech therapy cognitive evaluation -recommends 24-hour care -Reconsult psychiatry -for possible psychiatric hospital need - family states they are unlikely to be able to provide 24-hour care Diabetes Mellitus type 2, HbA1c- 9.9% Glucose control improved PLAN - Accuchecks QID AC and HS - Hypoglycemia protocol - Glargine 50u every night -Medium intensity sliding scale Hypertension, improved control this am Improved, renal function stable/improving off of losartan and hydrochlorothiazide PLAN -Stop losartan and hydrochlorothiazide -Start metoprolol 50 mg twice daily - PRN Hydralazine -Recheck CMP in the morning Subclinical hypothyroidism - TSH 6.076 (elevated), free T4 0.84 (normal) CKD stage III -deteriorated Creatinine 1.7 -Stop losartan and hydrochlorothiazide -Start metoprolol 50 mg twice daily Hypomagnesemia -resolved Hypokalemia -resolved PROPHYLAXIS DVT- ambulation and compression stockings GI- not indicated CODE STATUS: DNR/DNI DISPOSITION: Pending placement at psychiatric hospital or home pending Length of stay greater than 96 hours secondary to inability to obtain placement.
[2019-11-25] MEDS: QUEtiapine 25 MG Tab PO SCH (20:40)
[2019-11-25] MEDS ORDERED: LORazepam 0.5 MG Tab PO SCH (21:00)
[2019-11-25] MEDS: Insulin Glarg,Human.Rec.Analog 100 Unit/ML SUBCUT SCH (21:57)
[2019-11-26] MEDS: hydrALAZINE 25 MG Tab PO SCH ×3 (06:30→21:58)
[2019-11-26] MEDS: Pantoprazole 40 MG Tab.CR PO SCH (06:30)
[2019-11-26] MEDS: Insulin Lispro 100 Units/ML 3 ML Vial SUBCUT SCH ×4 (09:54→21:54)
[2019-11-26] MEDS: FLUoxetine 20 MG Cap PO SCH (10:09)
[2019-11-26] MEDS: amLODIPine 10 MG Tab PO SCH ×2 (10:12→11:56)
[2019-11-26] MEDS: Cholecalciferol (Vitamin D3) 5,000 UNIT Tab PO SCH (10:12)
[2019-11-26] MEDS: Potassium Chloride 10 MEQ Tab.ER PO SCH (10:12)
--- NOTE | 2019-11-26 12:41 | CONS ---
CONSULTING PHYSICIAN: Herrera De La Cruz MD DATE OF CONSULTATION: 11/25/2019 Site where the services are provider is [facility] in [place], [place]. Site where the services are provided from offices in [facility]. Length of service for this 30-minute inpatient telemedicine event is 30 minutes. ASSESSMENT: The patient is a 74-year-old female seen for psychiatric followup evaluation after last being seen on in 11/22/2019. The patient is currently admitted to the [facility] Med/Surg Unit. Her daughter, Cesilia, is present for the interview as is the patient's nurse, Elena. HISTORY OF PRESENT ILLNESS: The patient states she is doing "okay" and states that over the weekend, she had been "busy. My granddaughter had wedding. It was a busy time." The patient's daughter, Cesilia, participates in the interview, states that the patient has been deteriorating lately from a cognitive standpoint and she is stating "it has been pretty alarming." The patient has evidently been hallucinating and displaying increased paranoia according to the daughter and this is relatively new. The patient's daughter reports that the patient does not have any history of tobacco use, illicit substance use, or alcohol use complicating her clinical picture. MENTAL STATUS EXAM: The patient is a 74-year-old white female in no apparent distress. Speech is of increased latency of response, shortened duration of utterance. The patient is cognitively oriented x1 to person, but not to place or date, thinking that it is 1924 and that she is [place], [place]. Mood is "okay." Affect is cooperative overall for the purposes of the followup inpatient consult. There is no behavioral or stated evidence of acute suicidal or homicidal ideation. Thought content is significant for paranoia and some possible hallucinosis. Thought processes are significant for thought blocking. There are no acute manic symptoms, but there are some loose associations. Judgment and insight definitely appear impaired at this point in time secondary to the patient's cognitive deficits. Motivation for help is poor. VITAL SIGNS: Stable. IMPRESSION: [place] I: 1. Psychosis, not otherwise specified, F29. 2. Anxiety disorder, not otherwise specified, F41.9. 3. Rule out dementia, not otherwise specified, F03.90. 4. Rule out pseudodementia. 5. Rule out major depressive disorder. [place] II: None. [place] III: Type 2 diabetes. 1. Hypertension. 2. Status post hysterectomy. 3. Status post cholecystectomy. 4. History of hearing difficulties. [place] IV: Severe. [place] V: 50 to 55. PLAN: 1. Increase the patient's Seroquel from 25 to 50 mg at bedtime to help with clarity of thought, elimination of paranoia, and psychotic symptoms as well as to help with sleep initiation and maintenance and anxiety reduction. 2. Decrease the patient's Ativan from 0.5 mg b.i.d. to 0.5 mg at bedtime to help with anxiety reduction in the evening and sleep initiation maintenance, but provide for minimizing sedation during the day. 3. Continue Prozac 20 mg q.a.m. for symptoms of depression. 4. Other medications as dosed and prescribed by the patient's primary inpatient medical treatment team. 5. Recommend that when the patient is medically stabilized that the patient be transferred to inpatient psychiatry for further psychiatric workup and evaluation. 6. We will continue to follow up with the patient on an as-needed basis while she remains on the inpatient Med/Surg Unit at [facility] in [place], [place]. 7. We will follow up with the patient sooner if there are any complications in the interim. 8. Crisis plan is in place. MADELIN /[id number]
--- NOTE | 2019-11-26 12:57 | CONS ---
CONSULTING PHYSICIAN: Herrera De La Cruz MD DATE OF CONSULTATION: 11/22/2019 Site where the services are provided is [facility] in [place], [place]. Site where the services are provided from our offices in [facility]. Length of service for this 30-minute inpatient telemedicine event is 30 minutes. ASSESSMENT: The patient is a 74-year-old female, who was seen for psychiatric followup evaluation per the request of staff attending, Dr. Lowery, and his treatment team after originally being seen for psychiatric consultation on 11/20/2019. The patient is stating that she is doing "okay" this afternoon. She states "I have been sleeping. Not better, not worst, just different. I feel more rested." She also states that she is "not sad like I was." She feels that she is thinking more clearly and that her memory is better. She denies any side effects from her current psychiatric medication regimen. She states that she is hoping that she can get discharged back to home. She wants to get back down the [place]. She is fine taking the psychiatric medications and states that she will look forward to following up with Outpatient Psychiatry after discharge. MENTAL STATUS EXAM: The patient is a 74-year-old white female, in no apparent distress. Speech is of regular rate and rhythm. The patient is cognitively oriented x3. Psychomotor activity is within normal limits. There is no abnormal motor movements or tics observed. Gait and station are not observed. This patient is seated in a chair during the course of the inpatient followup consult. Mood is "okay." Affect is cooperative overall for the purposes of the inpatient followup and more alert as compared to the initial consult. There is no behavioral or stated evidence of acute suicidal or homicidal ideation or acute psychotic, delusional, or paranoid symptoms. Thought processes are more organized as compared to the initial consult. There are no manic symptoms or loose associations evident. Judgment and insight appear impaired overall. Motivation for help appears fair to good. VITALS: 126/58, 85, 20, 97.2. IMPRESSION: [place] I: 1. Psychosis, not otherwise specified, F29. 2. Anxiety disorder, not otherwise specified, F41.9. 3. Rule out pseudodementia. 4. Rule out dementia, not otherwise specified, process. 5. Rule out major depressive disorder. [place] II: None. [place] III: 1. History of diabetes type 2. 2. History of hypertension. 3. Status post hysterectomy. 4. Status post cholecystectomy. 5. History of hearing difficulties. 6. History of altered mental status of unknown etiology, currently being worked up. [place] IV: Severe. [place] V: 60 to 65. PLAN: 1. Continue Seroquel 25 mg at bedtime for clarity of thought, elimination of paranoid and psychotic symptoms, mood stability, sleep initiation, maintenance as well as anxiety reduction. 2. Continue Prozac 20 mg daily for symptoms of depression. 3. Continue Ativan 0.5 mg b.i.d. for anxiety reduction. 4. Other medications as dosed and prescribed by the patient's primary inpatient treatment team. 5. We will continue to reassess the patient going forward as needed from a psychiatric standpoint. 6. Anticipate that if the patient continues to improve from a cognitive standpoint and when she is medically stabilized, she can be discharged back to home. 7. If the patient does regress throughout the course of her stay from a cognitive standpoint, then would re-evaluate and likely consider transferring to Inpatient Psychiatry for further psychiatric observation and stabilization. 8. We will continue to on an as-needed basis while she remains on the inpatient Med/Surg Unit at [facility] in [place], [place]. 9. We will follow up with the patient sooner if there are any complications in the interim. 10.Crisis plan is in place. MADELIN /[id number]
--- NOTE | 2019-11-26 13:17 | PCM.PN ---
- General Info Date of Service: 11/26/19 Admission Dx/Problem (Free Text): Admission Diagnosis/Problem Admission Diagnosis/Problem Hyperglycemia Subjective Update: Patient is doing well today. She is participating with activities and physical therapy. Based on recommendations for inpatient psychiatric hospital I contacted [facility] in [place] Dr. Collins in the psychiatric department. He felt that her issues are due to dementia and that she needs placement in a long term facility or long-term care facility and not into a psychiatric hospital. Functional Status: Reports: Pain Controlled - Review of Systems General: Reports: No Symptoms HEENT: Reports: No Symptoms Pulmonary: Reports: No Symptoms Cardiovascular: Reports: No Symptoms Gastrointestinal: Reports: No Symptoms Genitourinary: Reports: No Symptoms - Patient Data Vitals - Most Recent: Last Vital Signs Temp 97.7 F 11/26/19 11:15 Pulse 58 L 11/26/19 11:45 Resp 12 11/26/19 11:15 BP 145/50 H 11/26/19 11:56 Pulse Ox 99 11/26/19 11:45 Weight - Most Recent: 163 lb 8 oz I&O - Last 24 Hours: Intake & Output 11/25/19 11/26/19 11/26/19 22:59 06:59 14:59 Intake Total 1110 600 360 Output Total 1100 500 Balance 10 100 360 Lab Results Last 24 Hours: Laboratory Results - last 24 hr 11/25/19 11/25/19 11/26/19 Range/Units 17:40 20:55 05:10 WBC (3.98-10.04) K/mm3 RBC (3.98-5.22) M/mm3 Hgb (11.2-15.7) gm/dl Hct (34.1-44.9) % MCV (79.4-94.8) fl MCH (25.6-32.2) pg MCHC (32.2-35.5) g/dl RDW Std Deviation (36.4-46.3) fL Plt Count (182-369) K/mm3 MPV (9.4-12.3) fl Neut % (Auto) (34.0-71.1) % Lymph % (Auto) (19.3-51.7) % Emmons % (Auto) (4.7-12.5) % Eos % (Auto) (0.7-5.8) Baso % (Auto) (0.1-1.2) % Neut # (Auto) (1.56-6.13) K/mm3 Lymph # (Auto) (1.18-3.74) K/mm3 Emmons # (Auto) (0.24-0.36) K/mm3 Eos # (Auto) (0.04-0.36) K/mm3 Baso # (Auto) (0.01-0.08) K/mm3 Sodium 138 (136-145) mEq/L Potassium 3.8 (3.5-5.1) mEq/L Chloride 103 (98-107) mEq/L Carbon Dioxide 29 (21-32) mEq/L Anion Gap 9.8 (5-15) BUN 35 H (7-18) mg/dL Creatinine 1.6 H (0.55-1.02) mg/dL Est Cr Clr Drug Dosing 24.40 mL/min Estimated GFR (MDRD) 32 (>60) mL/min BUN/Creatinine Ratio 21.9 H (14-18) Glucose 77 L (83-115) mg/dL POC Glucose 124 H 222 H (83-110) mg/dL Calcium 9.0 (8.5-10.1) mg/dL Magnesium 2.2 (1.8-2.4) mg/dl Total Bilirubin 0.7 (0.2-1.0) mg/dL AST 16 (15-37) U/L ALT 23 (14-59) U/L Alkaline Phosphatase 73 (46-116) U/L Total Protein 5.5 L (6.4-8.2) g/dl Albumin 2.3 L (3.4-5.0) g/dl Globulin 3.2 gm/dL Albumin/Globulin Ratio 0.7 L (1-2) 11/26/19 11/26/19 11/26/19 Range/Units 05:16 06:32 06:59 WBC 5.29 (3.98-10.04) K/mm3 RBC 4.01 (3.98-5.22) M/mm3 Hgb 11.2 (11.2-15.7) gm/dl Hct 34.0 L (34.1-44.9) % MCV 84.8 (79.4-94.8) fl MCH 27.9 (25.6-32.2) pg MCHC 32.9 (32.2-35.5) g/dl RDW Std Deviation 39.5 (36.4-46.3) fL Plt Count 180 L (182-369) K/mm3 MPV 10.4 (9.4-12.3) fl Neut % (Auto) 54.4 (34.0-71.1) % Lymph % (Auto) 31.0 (19.3-51.7) % Emmons % (Auto) 10.6 (4.7-12.5) % Eos % (Auto) 3.6 (0.7-5.8) Baso % (Auto) 0.2 (0.1-1.2) % Neut # (Auto) 2.88 (1.56-6.13) K/mm3 Lymph # (Auto) 1.64 (1.18-3.74) K/mm3 Emmons # (Auto) 0.56 H (0.24-0.36) K/mm3 Eos # (Auto) 0.19 (0.04-0.36) K/mm3 Baso # (Auto) 0.01 (0.01-0.08) K/mm3 Sodium (136-145) mEq/L Potassium (3.5-5.1) mEq/L Chloride (98-107) mEq/L Carbon Dioxide (21-32) mEq/L Anion Gap (5-15) BUN (7-18) mg/dL Creatinine (0.55-1.02) mg/dL Est Cr Clr Drug Dosing mL/min Estimated GFR (MDRD) (>60) mL/min BUN/Creatinine Ratio (14-18) Glucose (83-115) mg/dL POC Glucose 61 L 110 (83-110) mg/dL Calcium (8.5-10.1) mg/dL Magnesium (1.8-2.4) mg/dl Total Bilirubin (0.2-1.0) mg/dL AST (15-37) U/L ALT (14-59) U/L Alkaline Phosphatase (46-116) U/L Total Protein (6.4-8.2) g/dl Albumin (3.4-5.0) g/dl Globulin gm/dL Albumin/Globulin Ratio (1-2) /21/20 Range/Units 11:36 WBC (3.98-10.04) K/mm3 RBC (3.98-5.22) M/mm3 Hgb (11.2-15.7) gm/dl Hct (34.1-44.9) % MCV (79.4-94.8) fl MCH (25.6-32.2) pg MCHC (32.2-35.5) g/dl RDW Std Deviation (36.4-46.3) fL Plt Count (182-369) K/mm3 MPV (9.4-12.3) fl Neut % (Auto) (34.0-71.1) % Lymph % (Auto) (19.3-51.7) % Emmons % (Auto) (4.7-12.5) % Eos % (Auto) (0.7-5.8) Baso % (Auto) (0.1-1.2) % Neut # (Auto) (1.56-6.13) K/mm3 Lymph # (Auto) (1.18-3.74) K/mm3 Emmons # (Auto) (0.24-0.36) K/mm3 Eos # (Auto) (0.04-0.36) K/mm3 Baso # (Auto) (0.01-0.08) K/mm3 Sodium (136-145) mEq/L Potassium (3.5-5.1) mEq/L Chloride (98-107) mEq/L Carbon Dioxide (21-32) mEq/L Anion Gap (5-15) BUN (7-18) mg/dL Creatinine (0.55-1.02) mg/dL Est Cr Clr Drug Dosing mL/min Estimated GFR (MDRD) (>60) mL/min BUN/Creatinine Ratio (14-18) Glucose (83-115) mg/dL POC Glucose 147 H (83-110) mg/dL Calcium (8.5-10.1) mg/dL Magnesium (1.8-2.4) mg/dl Total Bilirubin (0.2-1.0) mg/dL AST (15-37) U/L ALT (14-59) U/L Alkaline Phosphatase (46-116) U/L Total Protein (6.4-8.2) g/dl Albumin (3.4-5.0) g/dl Globulin gm/dL Albumin/Globulin Ratio (1-2) Med Orders - Current: Current Medications Acetaminophen (Tylenol) 650 mg PO Q4H PRN PRN Reason: Pain (Mild 1-3)/fever Amlodipine Besylate (Norvasc) 10 mg PO DAILY [facility] Last Admin: 11/26/19 11:56 Dose: 10 mg Cholecalciferol (Vitamin D3) 5,000 unit PO DAILY [facility] Last Admin: 11/26/19 10:12 Dose: 5,000 unit Clonidine HCl (Catapres-Tts 1) 0.1 mg TRDERM Q7D [facility] Last Admin: 11/21/19 21:38 Dose: 0.1 mg Fluoxetine HCl (Prozac) 20 mg PO DAILY [facility] Last Admin: 11/26/19 10:09 Dose: 20 mg Hydralazine HCl (Apresoline) 25 mg PO Q8HR [facility] Last Admin: 11/26/19 06:30 Dose: 25 mg Insulin Glargine (Lantus) 45 unit SUBCUT BEDTIME [facility] Insulin Human Lispro (Humalog) 0 unit SUBCUT QIDACANDBED [facility]; Protocol Last Admin: 11/26/19 13:02 Dose: Not Given Miscellaneous Information (Remove Patch) 1 ea TRDERM Q7D [facility] Ondansetron HCl (Zofran Odt) 4 mg PO Q6H PRN PRN Reason: nausea, able to take PO Pantoprazole Sodium (Protonix) 40 mg PO ACBREAKFAST [facility] Last Admin: 11/26/19 06:30 Dose: 40 mg Potassium Chloride (Klor-Con 10) 10 meq PO DAILY [facility] Last Admin: 11/26/19 10:12 Dose: 10 meq Quetiapine Fumarate (Seroquel) 50 mg PO BEDTIME [facility] Last Admin: 11/25/19 20:40 Dose: 50 mg Discontinued Medications Amlodipine Besylate (Norvasc) 10 mg PO DAILY [facility] Last Admin: 11/21/19 08:49 Dose: 10 mg Dextrose/Water (Dextrose 50% In Water) 50 ml IVPUSH ASDIRECTED PRN PRN Reason: Hypoglycemia Hydralazine HCl (Apresoline) 10 mg IVPUSH ONETIME ONE Stop: 11/19/19 23:50 Last Admin: 11/20/19 00:19 Dose: Not Given Hydralazine HCl (Apresoline) 10 mg IVPUSH Q2H PRN PRN Reason: Hypertension Last Admin: 11/20/19 03:13 Dose: 10 mg Hydrochlorothiazide (Hydrochlorothiazide) 12.5 mg PO DAILY [facility] Last Admin: 11/23/19 09:12 Dose: 12.5 mg Hydrochlorothiazide (Hydrochlorothiazide) 12.5 mg PO ONETIME STA Stop: 11/20/19 16:42 Last Admin: 11/20/19 18:01 Dose: 12.5 mg Magnesium Sulfate 4 gm/ Premix 100 mls @ 25 mls/hr IV ONETIME ONE Stop: 11/21/19 13:29 Last Admin: 11/21/19 10:32 Dose: 25 mls/hr Sodium Chloride (Normal Saline) 1,000 mls @ 100 mls/hr IV ASDIRECTED [facility] Stop: 11/24/19 17:59 Last Admin: 11/24/19 08:05 Dose: 100 mls/hr Magnesium Sulfate 2 gm/ Premix 50 mls @ 25 mls/hr IV ONETIME ONE Stop: 11/25/19 09:54 Last Admin: 11/25/19 08:02 Dose: 25 mls/hr Insulin Glargine (Lantus) 50 unit SUBCUT DAILY [facility] Last Admin: 11/20/19 13:26 Dose: Not Given Insulin Glargine (Lantus) 50 unit SUBCUT BEDTIME [facility] Last Admin: 11/25/19 21:57 Dose: 50 units Insulin Human Lispro (Humalog) 0 unit SUBCUT BIDAC [facility]; Protocol Last Admin: 11/20/19 12:05 Dose: Not Given Insulin Human Lispro (Humalog) 0 unit SUBCUT BID@0700,1700 [facility]; Protocol Last Admin: 11/20/19 09:14 Dose: 3 units Insulin Human Lispro (Humalog) 0 unit SUBCUT QIDACANDBED [facility]; Protocol Last Admin: 11/24/19 07:59 Dose: Not Given Lorazepam (Ativan) 0.5 mg PO BID [facility] Last Admin: 11/25/19 08:00 Dose: 0.5 mg Lorazepam (Ativan) 0.5 mg PO BEDTIME [facility] Last Admin: 11/25/19 20:40 Dose: 0.5 mg Losartan Potassium (Cozaar) 100 mg PO BEDTIME STA Stop: 11/20/19 00:14 Last Admin: 11/20/19 00:58 Dose: 100 mg Losartan Potassium (Cozaar) 100 mg PO DAILY [facility] Last Admin: 11/23/19 09:14 Dose: 100 mg Magnesium Hydroxide (Milk Of Magnesia) 30 ml PO ONETIME ONE Stop: 11/24/19 06:01 Last Admin: 11/24/19 05:27 Dose: 30 ml Metoprolol Tartrate (Lopressor) 50 mg PO Q12H [facility] Last Admin: 11/25/19 20:40 Dose: Not Given Non-Formulary Medication (Dulaglutide [Trulicity]) 0.75 mg SQ Q7D [facility] Ondansetron HCl (Zofran) 4 mg IV Q6H PRN PRN Reason: Nausea/Vomiting Potassium Chloride (Klor-Con M20) 20 meq PO ONETIME ONE Stop: 11/21/19 09:17 Last Admin: 11/21/19 10:32 Dose: 20 meq Potassium Chloride (Klor-Con M20) 40 meq PO ONETIME ONE Stop: 11/22/19 10:01 Last Admin: 11/22/19 10:05 Dose: 40 meq Quetiapine Fumarate (Seroquel) 25 mg PO BEDTIME [facility] Last Admin: 11/24/19 21:13 Dose: 25 mg - Exam General: Alert HEENT: Pupils Equal, Mucous Membr. Moist/[place] Neck: Supple Lungs: Clear to Auscultation, Normal Respiratory Effort Cardiovascular: Regular Rate, Regular Rhythm GI/Abdominal Exam: Normal Bowel Sounds, Soft, No Organomegaly, No Distention Back Exam: Normal Inspection Extremities: Normal Inspection, Non-Tender, No Pedal Edema Skin: Warm, Dry, Intact Psy/Mental Status: Alert, Normal Affect, Normal Mood Sepsis Event Note - Evaluation Sepsis Screening Result: No Definite Risk - Focused Exam Vital Signs: Vital Signs Temp Pulse Resp BP Pulse Ox 11/26/19 11:56 145/50 H 11/26/19 11:45 58 L 99 11/26/19 11:15 97.7 F 58 L 12 145/50 H 95 11/26/19 10:11 55 L 98 11/26/19 10:05 133/53 L 11/26/19 07:40 97.9 F 55 L 20 153/56 H 95 01/21/20 06:30 157/55 H 11/26/19 06:28 157/55 H Date Exam was Performed: 11/26/19 Time Exam was Performed: 13:09 - Problem List Review Problem List Initiated/Reviewed/Updated: Yes - My Orders Last 24 Hours: My Active Orders 11/26/19 21:00 Insulin Glarg,Human.Rec.Analog [LantUS] 45 unit SUBCUT BEDTIME - Plan Plan:: Dementia with episodes of delirium -Patient doing well today. - Speech therapy cognitive evaluation -recommends 24-hour care -Psychiatry from [facility] in [place] feels patient does not need inpatient psychiatric care. - family states they are unlikely to be able to provide 24-hour care -Case management will continue to work forward towards long term care versus long-term care. Diabetes Mellitus type 2, HbA1c- 9.9% Glucose control improved FBS this AM 91 PLAN - Accuchecks QID AC and HS - Hypoglycemia protocol - decrease Glargine to 45u every night -Medium intensity sliding scale Hypertension, improved control this am Improved, renal function stable/improving off of losartan and hydrochlorothiazide Bradycardia since starting metoprolol PLAN -Stop losartan and hydrochlorothiazide -Stop metoprolol 50 mg twice daily 2/2 bradycardia. She may benefit from lower dose metoprolol. - PRN Hydralazine -Follow BP Subclinical hypothyroidism - TSH 6.076 (elevated), free T4 0.84 (normal) CKD stage III -improve Creatinine 1.6 -Stop losartan and hydrochlorothiazide Hypomagnesemia -resolved Hypokalemia -resolved PROPHYLAXIS DVT- ambulation and compression stockings GI- not indicated CODE STATUS: DNR/DNI DISPOSITION: Pending placement at psychiatric hospital or home pending Length of stay greater than 96 hours secondary to inability to obtain placement.
[2019-11-26] MEDS ORDERED: Insulin Glarg,Human.Rec.Analog 100 Unit/ML SUBCUT SCH (21:00)
[2019-11-26] MEDS: QUEtiapine 25 MG Tab PO SCH (21:55)
[2019-11-27] MEDS: Pantoprazole 40 MG Tab.CR PO SCH (05:16)
[2019-11-27] MEDS: hydrALAZINE 25 MG Tab PO SCH (05:16)
[2019-11-27] MEDS: FLUoxetine 20 MG Cap PO SCH (09:21)
[2019-11-27] MEDS: Cholecalciferol (Vitamin D3) 5,000 UNIT Tab PO SCH (09:22)
[2019-11-27] MEDS: Potassium Chloride 10 MEQ Tab.ER PO SCH (09:22)
[2019-11-27] MEDS: amLODIPine 10 MG Tab PO SCH (09:22)
[2019-11-27] MEDS: Insulin Lispro 100 Units/ML 3 ML Vial SUBCUT SCH ×5 (09:23→22:17)
--- NOTE | 2019-11-27 19:29 | PCM.PN ---
- General Info Date of Service: 11/27/19 Subjective Update: Patient is stating she is in a basement and does not understand who put her there, when told she is not there she respond with "something shady is going on here" - Patient Data Vitals - Most Recent: Last Vital Signs Temp 98.8 F 11/27/19 15:29 Pulse 73 11/27/19 15:29 Resp 12 11/27/19 15:29 BP 160/64 H 11/27/19 15:29 Pulse Ox 93 L 11/27/19 15:29 Weight - Most Recent: 73.391 kg - Exam General: Alert, No Acute Distress HEENT: Mucous Membr. Moist/[place]. No: Scleral Icterus Neck: Supple, No JVD, No Thyromegaly Lungs: Clear to Auscultation, Decreased Breath Sounds. No: Crackles, Rales, Wheezing Cardiovascular: Regular Rate, Regular Rhythm. No: Murmurs, Gallops, Rubs GI/Abdominal Exam: Soft, Non-Tender. No: Distended, Guarding, Rigid, Rebound Extremities: Normal Inspection Psy/Mental Status: Alert, Labile Mood, Hallucinations Sepsis Event Note - Evaluation Sepsis Screening Result: No Definite Risk - Focused Exam Vital Signs: Vital Signs Temp Pulse Resp BP Pulse Ox 11/27/19 15:29 98.8 F 73 12 160/64 H 93 L 11/27/19 11:14 98.4 F 75 12 160/55 H 90 L 11/27/19 09:22 157/104 H 11/27/19 07:51 98.4 F 69 20 157/104 H 91 L Date Exam was Performed: 11/27/19 Time Exam was Performed: 19:52 - Problem List & Annotations (1) Psychosis SNOMED Code(s): 84419076 Code(s): F29 - UNSP PSYCHOSIS NOT DUE TO A SUBSTANCE OR KNOWN PHYSIOL COND Status: Acute Current Visit: Yes (2) Altered mental status SNOMED Code(s): 376788684 Code(s): R41.82 - ALTERED MENTAL STATUS, UNSPECIFIED Status: Acute Current Visit: Yes (3) CKD (chronic kidney disease), stage III SNOMED Code(s): 026815427 Code(s): N18.3 - CHRONIC KIDNEY DISEASE, STAGE 3 (MODERATE) Status: Acute Current Visit: Yes (4) Hypokalemia SNOMED Code(s): 92266458 Code(s): E87.6 - HYPOKALEMIA Status: Acute Current Visit: Yes (5) Hypomagnesemia SNOMED Code(s): 228327247 Code(s): E83.42 - HYPOMAGNESEMIA Status: Acute Current Visit: Yes (6) Poor compliance SNOMED Code(s): 2883110 Code(s): Z91.19 - PATIENT'S NONCOMPLIANCE W OTH MEDICAL TREATMENT AND REGIMEN Status: Acute Current Visit: Yes (7) Uncontrolled diabetes mellitus SNOMED Code(s): 79259563, 836894074 Code(s): E11.65 - TYPE 2 DIABETES MELLITUS WITH HYPERGLYCEMIA Status: Acute Current Visit: Yes (8) Uncontrolled hypertension SNOMED Code(s): 96917591, 98659770 Code(s): I10 - ESSENTIAL (PRIMARY) HYPERTENSION Status: Acute Current Visit: Yes - Problem List Review Problem List Initiated/Reviewed/Updated: Yes - Plan Plan:: Dementia with episodes of delirium and psychosis Patient clinically stable Mental status continues to be altered, this is likely multifactorial Psychiatry has evaluated patient multiple times and continues to recommend inpatient psychiatry Case has been discussed with [facility] in [place], both of which have declined transfer At this time patient is unable to get required care at home We will have to wait to see if a level 2 evaluation is requested by the state and go from there PLAN - Continue case management and social work for placement Diabetes Mellitus type 2, HbA1c- 9.9% Glucose trend 61-228 Upon further chart review patient has borderline glucose levels in AM since 11/23 PLAN - Glargine will be decreased further to 30 - Will add premeal insulin 4 u - Accuchecks QID AC and HS - Hypoglycemia protocol - Medium intensity sliding scale Hypertension, improved control this am BP trend 133-155/50-65 Bradycardia on metoprolol, discontinued Patient on clonidine since admission, upon further investigation by pharmacy patient had not been taking any medications except for toujeo. Clonidine could be worsening mental status so will discontinue PLAN - Restart home losartan, 100mg QD - On amlodipine 10 mg QD - PRN Hydralazine - Follow BP Subclinical hypothyroidism - TSH 6.076 (elevated), free T4 0.84 (normal) CKD stage III -improving GFR stable since admission PLAN - Monitor urinary output - Renally dosed medications, avoid nephrotoxic agents Hypomagnesemia -resolved Hypokalemia -resolved PROPHYLAXIS DVT- ambulation and compression stockings GI- not indicated CODE STATUS: DNR/DNI DISPOSITION: Pending placement at psychiatric hospital or home pending Length of stay greater than 96 hours secondary to inability to obtain placement.
[2019-11-27] MEDS ORDERED: Insulin Glarg,Human.Rec.Analog 100 Unit/ML SUBCUT SCH (21:00)
[2019-11-27] MEDS ORDERED: Losartan 25 MG Tab PO SCH (21:00)
[2019-11-27] MEDS: Losartan 100 MG Tab PO SCH (22:18)
[2019-11-27] MEDS: QUEtiapine 100 MG Tab PO SCH (22:19)
[2019-11-28] MEDS: Insulin Lispro 100 Units/ML 3 ML Vial SUBCUT SCH ×8 (07:29→21:36)
[2019-11-28] MEDS: Cholecalciferol (Vitamin D3) 5,000 UNIT Tab PO SCH (09:01)
[2019-11-28] MEDS: amLODIPine 10 MG Tab PO SCH (09:02)
[2019-11-28] MEDS: FLUoxetine 20 MG Cap PO SCH (09:02)
[2019-11-28] MEDS: Potassium Chloride 10 MEQ Tab.ER PO SCH (09:03)
--- NOTE | 2019-11-28 09:16 | PCM.DCSUM1 ---
Discharge Summary - Discharge Data Discharge Date: 11/28/19 Discharge Disposition: Home, Self-Care 01 Condition: Good - Referral to Home Health Primary Care Physician: Zo Ferrari MD - Discharge Diagnosis/Problem(s) (1) Psychosis SNOMED Code(s): 89660597 ICD Code: F29 - UNSP PSYCHOSIS NOT DUE TO A SUBSTANCE OR KNOWN PHYSIOL COND Status: Acute Current Visit: Yes (2) Altered mental status SNOMED Code(s): 434268163 ICD Code: R41.82 - ALTERED MENTAL STATUS, UNSPECIFIED Status: Acute Current Visit: Yes (3) CKD (chronic kidney disease), stage III SNOMED Code(s): 370823789 ICD Code: N18.3 - CHRONIC KIDNEY DISEASE, STAGE 3 (MODERATE) Status: Acute Current Visit: Yes (4) Hypokalemia SNOMED Code(s): 49545748 ICD Code: E87.6 - HYPOKALEMIA Status: Acute Current Visit: Yes (5) Hypomagnesemia SNOMED Code(s): 406337161 ICD Code: E83.42 - HYPOMAGNESEMIA Status: Acute Current Visit: Yes (6) Poor compliance SNOMED Code(s): 9666382 ICD Code: Z91.19 - PATIENT'S NONCOMPLIANCE W OTH MEDICAL TREATMENT AND REGIMEN Status: Acute Current Visit: Yes (7) Uncontrolled diabetes mellitus SNOMED Code(s): 98303052, 972905829 ICD Code: E11.65 - TYPE 2 DIABETES MELLITUS WITH HYPERGLYCEMIA Status: Acute Current Visit: Yes (8) Uncontrolled hypertension SNOMED Code(s): 10095465, 20010425 ICD Code: I10 - ESSENTIAL (PRIMARY) HYPERTENSION Status: Acute Current Visit: Yes - Patient Summary/Data Consults: Consultations 11/19/19 23:56 Consult to Diabetic Nurse Specialist [CONS] Routine Consult to Radiagraph Operator [CONS] Routine 11/20/19 10:54 Consult to Physical Therapy [PT Evaluation and Treatment] [CONS] Routine Consult to Physician [CONS] Routine Consult to Speech Language Pathology [DRAG SEINER Evaluation and Treatment] [CONS] Routine 11/20/19 15:14 Spiritual Care Follow Up [CONS] Routine - Discharge Plan Prescriptions/Med Rec: Cholecalciferol (Vitamin D3) [Vitamin D3] 5,000 unit PO DAILY #30 tablet FLUoxetine HCl [Fluoxetine HCl] 20 mg PO DAILY #30 capsule Insulin Glarg,Human.Rec.Analog [Lantus] 30 unit SUBCUT BEDTIME #50 ml Insulin Lispro [HumaLOG] 3 unit SUBCUT TIDAC #2 vial Losartan [Cozaar] 100 mg PO BEDTIME #30 tablet QUEtiapine [SEROquel] 100 mg PO BEDTIME #30 tablet Home Medications: Home Meds amLODIPine Besylate [Norvasc] 10 mg PO DAILY 11/19/19 [History] Cholecalciferol (Vitamin D3) [Vitamin D3] 5,000 unit PO DAILY #30 tablet [Rx] FLUoxetine HCl [Fluoxetine HCl] 20 mg PO DAILY #30 capsule 11/28/19 [Rx] Insulin Glarg,Human.Rec.Analog [Lantus] 30 unit SUBCUT BEDTIME #50 ml 11/28/19 [ Rx] Insulin Lispro [HumaLOG] 3 unit SUBCUT TIDAC #2 vial 11/28/19 [Rx] Losartan [Cozaar] 100 mg PO BEDTIME #30 tablet 11/28/19 [Rx] QUEtiapine [SEROquel] 100 mg PO BEDTIME #30 tablet 11/28/19 [Rx] Forms: ED Department Discharge Referrals: Zo Ferrari MD [Primary Care Provider] - - General Info Date of Service: 11/28/19 - Patient Data Vitals - Most Recent: Last Vital Signs Temp 97.5 F 11/28/19 08:38 Pulse 70 11/28/19 08:38 Resp 18 11/28/19 08:38 BP 116/75 11/28/19 09:02 Pulse Ox 91 L 11/28/19 08:38 Weight - Most Recent: 73.21 kg I&O - Last 24 hours: Intake & Output 11/27/19 11/28/19 11/28/19 22:59 06:59 14:59 Intake Total 1160 650 Output Total 600 1305 Balance 560 -655 Lab Results - Last 24 hrs: Laboratory Results - last 24 hr 11/27/19 11/27/19 11/27/19 Range/Units 06:57 11:10 12:02 WBC 5.63 (3.98-10.04) K/mm3 RBC 4.00 (3.98-5.22) M/mm3 Hgb 11.4 (11.2-15.7) gm/dl Hct 33.8 L (34.1-44.9) % MCV 84.5 (79.4-94.8) fl MCH 28.5 (25.6-32.2) pg MCHC 33.7 (32.2-35.5) g/dl RDW Std Deviation 39.0 (36.4-46.3) fL Plt Count 183 (182-369) K/mm3 MPV 9.9 (9.4-12.3) fl Neut % (Auto) 72.2 H (34.0-71.1) % Lymph % (Auto) 16.7 L (19.3-51.7) % [place] % (Auto) 7.5 (4.7-12.5) % Eos % (Auto) 3.2 (0.7-5.8) Baso % (Auto) 0.2 (0.1-1.2) % Neut # (Auto) 4.07 (1.56-6.13) K/mm3 Lymph # (Auto) 0.94 L (1.18-3.74) K/mm3 [place] # (Auto) 0.42 H (0.24-0.36) K/mm3 Eos # (Auto) 0.18 (0.04-0.36) K/mm3 Baso # (Auto) 0.01 (0.01-0.08) K/mm3 Sodium (136-145) mEq/L Potassium (3.5-5.1) mEq/L Chloride (98-107) mEq/L Carbon Dioxide (21-32) mEq/L Anion Gap (5-15) BUN (7-18) mg/dL Creatinine (0.55-1.02) mg/dL Est Cr Clr Drug Dosing mL/min Estimated GFR (MDRD) (>60) mL/min BUN/Creatinine Ratio (14-18) Glucose (83-115) mg/dL POC Glucose 89 157 H (83-110) mg/dL Calcium (8.5-10.1) mg/dL Phosphorus (2.6-4.7) mg/dL Magnesium (1.8-2.4) mg/dl 11/27/19 11/27/19 11/27/19 Range/Units 12:02 16:59 22:12 WBC (3.98-10.04) K/mm3 RBC (3.98-5.22) M/mm3 Hgb (11.2-15.7) gm/dl Hct (34.1-44.9) % MCV (79.4-94.8) fl MCH (25.6-32.2) pg MCHC (32.2-35.5) g/dl RDW Std Deviation (36.4-46.3) fL Plt Count (182-369) K/mm3 MPV (9.4-12.3) fl Neut % (Auto) (34.0-71.1) % Lymph % (Auto) (19.3-51.7) % [place] % (Auto) (4.7-12.5) % Eos % (Auto) (0.7-5.8) Baso % (Auto) (0.1-1.2) % Neut # (Auto) (1.56-6.13) K/mm3 Lymph # (Auto) (1.18-3.74) K/mm3 [place] # (Auto) (0.24-0.36) K/mm3 Eos # (Auto) (0.04-0.36) K/mm3 Baso # (Auto) (0.01-0.08) K/mm3 Sodium 136 (136-145) mEq/L Potassium 4.5 (3.5-5.1) mEq/L Chloride 102 (98-107) mEq/L Carbon Dioxide 26 (21-32) mEq/L Anion Gap 12.5 (5-15) BUN 35 H (7-18) mg/dL Creatinine 1.5 H (0.55-1.02) mg/dL Est Cr Clr Drug Dosing 26.02 mL/min Estimated GFR (MDRD) 34 (>60) mL/min BUN/Creatinine Ratio 23.3 H (14-18) Glucose 180 H (83-115) mg/dL POC Glucose 143 H 231 H (83-110) mg/dL Calcium 8.9 (8.5-10.1) mg/dL Phosphorus 4.5 (2.6-4.7) mg/dL Magnesium 1.9 (1.8-2.4) mg/dl 11/28/19 Range/Units 05:57 WBC (3.98-10.04) K/mm3 RBC (3.98-5.22) M/mm3 Hgb (11.2-15.7) gm/dl Hct (34.1-44.9) % MCV (79.4-94.8) fl MCH (25.6-32.2) pg MCHC (32.2-35.5) g/dl RDW Std Deviation (36.4-46.3) fL Plt Count (182-369) K/mm3 MPV (9.4-12.3) fl Neut % (Auto) (34.0-71.1) % Lymph % (Auto) (19.3-51.7) % [place] % (Auto) (4.7-12.5) % Eos % (Auto) (0.7-5.8) Baso % (Auto) (0.1-1.2) % Neut # (Auto) (1.56-6.13) K/mm3 Lymph # (Auto) (1.18-3.74) K/mm3 [place] # (Auto) (0.24-0.36) K/mm3 Eos # (Auto) (0.04-0.36) K/mm3 Baso # (Auto) (0.01-0.08) K/mm3 Sodium (136-145) mEq/L Potassium (3.5-5.1) mEq/L Chloride (98-107) mEq/L Carbon Dioxide (21-32) mEq/L Anion Gap (5-15) BUN (7-18) mg/dL Creatinine (0.55-1.02) mg/dL Est Cr Clr Drug Dosing mL/min Estimated GFR (MDRD) (>60) mL/min BUN/Creatinine Ratio (14-18) Glucose (83-115) mg/dL POC Glucose 127 H (83-110) mg/dL Calcium (8.5-10.1) mg/dL Phosphorus (2.6-4.7) mg/dL Magnesium (1.8-2.4) mg/dl Med Orders - Current: Current Medications Acetaminophen (Tylenol) 650 mg PO Q4H PRN PRN Reason: Pain (Mild 1-3)/fever Amlodipine Besylate (Norvasc) 10 mg PO DAILY [facility] Last Admin: 11/28/19 09:02 Dose: 10 mg Cholecalciferol (Vitamin D3) 5,000 unit PO DAILY [facility] Last Admin: 11/28/19 09:01 Dose: 5,000 unit Fluoxetine HCl (Prozac) 20 mg PO DAILY [facility] Last Admin: 11/28/19 09:02 Dose: 20 mg Insulin Glargine (Lantus) 30 unit SUBCUT BEDTIME [facility] Last Admin: 11/27/19 22:18 Dose: 30 units Insulin Human Lispro (Humalog) 0 unit SUBCUT QIDACANDBED [facility]; Protocol Last Admin: 11/28/19 07:29 Dose: Not Given Insulin Human Lispro (Humalog) 3 unit SUBCUT TIDAC [facility] Last Admin: 11/28/19 08:43 Dose: Not Given Losartan Potassium (Cozaar) 100 mg PO BEDTIME [facility] Last Admin: 11/27/19 22:18 Dose: 100 mg Ondansetron HCl (Zofran Odt) 4 mg PO Q6H PRN PRN Reason: nausea, able to take PO Potassium Chloride (Klor-Con 10) 10 meq PO DAILY [facility] Last Admin: 11/28/19 09:03 Dose: 10 meq Quetiapine Fumarate (Seroquel) 100 mg PO BEDTIME [facility] Last Admin: 11/27/19 22:19 Dose: 100 mg Discontinued Medications Amlodipine Besylate (Norvasc) 10 mg PO DAILY [facility] Last Admin: 11/21/19 08:49 Dose: 10 mg Clonidine HCl (Catapres-Tts 1) 0.1 mg TRDERM Q7D [facility] Last Admin: 11/21/19 21:38 Dose: 0.1 mg Dextrose/Water (Dextrose 50% In Water) 50 ml IVPUSH ASDIRECTED PRN PRN Reason: Hypoglycemia Hydralazine HCl (Apresoline) 10 mg IVPUSH ONETIME ONE Stop: 11/19/19 23:50 Last Admin: 11/20/19 00:19 Dose: Not Given Hydralazine HCl (Apresoline) 10 mg IVPUSH Q2H PRN PRN Reason: Hypertension Last Admin: 11/20/19 03:13 Dose: 10 mg Hydralazine HCl (Apresoline) 25 mg PO Q8HR [facility] Last Admin: 11/27/19 05:16 Dose: 25 mg Hydrochlorothiazide (Hydrochlorothiazide) 12.5 mg PO DAILY [facility] Last Admin: 11/23/19 09:12 Dose: 12.5 mg Hydrochlorothiazide (Hydrochlorothiazide) 12.5 mg PO ONETIME STA Stop: 11/20/19 16:42 Last Admin: 11/20/19 18:01 Dose: 12.5 mg Magnesium Sulfate 4 gm/ Premix 100 mls @ 25 mls/hr IV ONETIME ONE Stop: 11/21/19 13:29 Last Admin: 11/21/19 10:32 Dose: 25 mls/hr Sodium Chloride (Normal Saline) 1,000 mls @ 100 mls/hr IV ASDIRECTED [facility] Stop: 11/24/19 17:59 Last Admin: 11/24/19 08:05 Dose: 100 mls/hr Magnesium Sulfate 2 gm/ Premix 50 mls @ 25 mls/hr IV ONETIME ONE Stop: 11/25/19 09:54 Last Admin: 11/25/19 08:02 Dose: 25 mls/hr Insulin Glargine (Lantus) 50 unit SUBCUT DAILY [facility] Last Admin: 11/20/19 13:26 Dose: Not Given Insulin Glargine (Lantus) 50 unit SUBCUT BEDTIME [facility] Last Admin: 11/25/19 21:57 Dose: 50 units Insulin Glargine (Lantus) 45 unit SUBCUT BEDTIME [facility] Last Admin: 11/26/19 21:53 Dose: 45 units Insulin Human Lispro (Humalog) 0 unit SUBCUT BIDAC [facility]; Protocol Last Admin: 11/20/19 12:05 Dose: Not Given Insulin Human Lispro (Humalog) 0 unit SUBCUT BID@0700,1700 [facility]; Protocol Last Admin: 11/20/19 09:14 Dose: 3 units Insulin Human Lispro (Humalog) 0 unit SUBCUT QIDACANDBED [facility]; Protocol Last Admin: 11/24/19 07:59 Dose: Not Given Lorazepam (Ativan) 0.5 mg PO BID [facility] Last Admin: 11/25/19 08:00 Dose: 0.5 mg Lorazepam (Ativan) 0.5 mg PO BEDTIME [facility] Last Admin: 11/25/19 20:40 Dose: 0.5 mg Losartan Potassium (Cozaar) 100 mg PO BEDTIME STA Stop: 11/20/19 00:14 Last Admin: 11/20/19 00:58 Dose: 100 mg Losartan Potassium (Cozaar) 100 mg PO DAILY [facility] Last Admin: 11/23/19 09:14 Dose: 100 mg Losartan Potassium (Cozaar) 50 mg PO BEDTIME [facility] Magnesium Hydroxide (Milk Of Magnesia) 30 ml PO ONETIME ONE Stop: 11/24/19 06:01 Last Admin: 11/24/19 05:27 Dose: 30 ml Metoprolol Tartrate (Lopressor) 50 mg PO Q12H [facility] Last Admin: 11/25/19 20:40 Dose: Not Given Miscellaneous Information (Remove Patch) 1 ea TRDERM Q7D [facility] Non-Formulary Medication (Dulaglutide [Trulicity]) 0.75 mg SQ Q7D [facility] Ondansetron HCl (Zofran) 4 mg IV Q6H PRN PRN Reason: Nausea/Vomiting Pantoprazole Sodium (Protonix) 40 mg PO ACBREAKFAST [facility] Last Admin: 11/27/19 05:16 Dose: 40 mg Potassium Chloride (Klor-Con M20) 20 meq PO ONETIME ONE Stop: 11/21/19 09:17 Last Admin: 11/21/19 10:32 Dose: 20 meq Potassium Chloride (Klor-Con M20) 40 meq PO ONETIME ONE Stop: 11/22/19 10:01 Last Admin: 11/22/19 10:05 Dose: 40 meq Quetiapine Fumarate (Seroquel) 25 mg PO BEDTIME [facility] Last Admin: 11/24/19 21:13 Dose: 25 mg Quetiapine Fumarate (Seroquel) 50 mg PO BEDTIME [facility] Last Admin: 11/26/19 21:55 Dose: 50 mg
--- NOTE | 2019-11-28 13:55 | PCM.PN ---
- General Info Date of Service: 11/28/19 Subjective Update: Slept ok Tolerating diet No episodes of aggression - Patient Data Vitals - Most Recent: Last Vital Signs Temp 97.9 F 11/28/19 11:25 Pulse 73 11/28/19 11:25 Resp 16 11/28/19 11:25 BP 135/72 11/28/19 11:25 Pulse Ox 96 11/28/19 11:25 Weight - Most Recent: 73.21 kg - Exam General: Alert, Cooperative, No Acute Distress HEENT: Mucous Membr. Moist/[place]. No: Scleral Icterus Neck: Supple, Trachea Midline, No JVD, No Thyromegaly Lungs: Clear to Auscultation, Normal Respiratory Effort. No: Crackles, Rales, Rhonchi, Wheezing Cardiovascular: Regular Rate, Regular Rhythm. No: Murmurs, Gallops, Rubs GI/Abdominal Exam: Normal Bowel Sounds, Soft, Non-Tender, No Organomegaly ( ) Back Exam: Normal Inspection Extremities: Normal Inspection, Non-Tender, No Pedal Edema Skin: Warm, Dry Psy/Mental Status: Alert Sepsis Event Note - Evaluation Sepsis Screening Result: No Definite Risk - Focused Exam Vital Signs: Vital Signs Temp Pulse Resp BP Pulse Ox 11/28/19 11:25 97.9 F 73 16 135/72 96 11/28/19 09:02 116/75 11/28/19 08:46 116/75 11/28/19 08:38 97.5 F 70 18 135/116 H 91 L 11/28/19 03:49 97.5 F 66 16 132/57 L 90 L Date Exam was Performed: 11/28/19 Time Exam was Performed: 18:49 - Problem List & Annotations (1) Psychosis SNOMED Code(s): 13320420 Code(s): F29 - UNSP PSYCHOSIS NOT DUE TO A SUBSTANCE OR KNOWN PHYSIOL COND Status: Acute Current Visit: Yes (2) Altered mental status SNOMED Code(s): 616611354 Code(s): R41.82 - ALTERED MENTAL STATUS, UNSPECIFIED Status: Acute Current Visit: Yes (3) CKD (chronic kidney disease), stage III SNOMED Code(s): 791576336 Code(s): N18.3 - CHRONIC KIDNEY DISEASE, STAGE 3 (MODERATE) Status: Acute Current Visit: Yes (4) Hypokalemia SNOMED Code(s): 96635173 Code(s): E87.6 - HYPOKALEMIA Status: Acute Current Visit: Yes (5) Hypomagnesemia SNOMED Code(s): 716996662 Code(s): E83.42 - HYPOMAGNESEMIA Status: Acute Current Visit: Yes (6) Poor compliance SNOMED Code(s): 1830514 Code(s): Z91.19 - PATIENT'S NONCOMPLIANCE W OTH MEDICAL TREATMENT AND REGIMEN Status: Acute Current Visit: Yes (7) Uncontrolled diabetes mellitus SNOMED Code(s): 13464392, 474904227 Code(s): E11.65 - TYPE 2 DIABETES MELLITUS WITH HYPERGLYCEMIA Status: Acute Current Visit: Yes (8) Uncontrolled hypertension SNOMED Code(s): 46690666, 33570221 Code(s): I10 - ESSENTIAL (PRIMARY) HYPERTENSION Status: Acute Current Visit: Yes - Problem List Review Problem List Initiated/Reviewed/Updated: Yes - Plan Plan:: Dementia with episodes of delirium and psychosis Patient clinically stable Mental status continues to be altered, this is likely multifactorial Psychiatry has evaluated patient multiple times and continues to recommend inpatient psychiatry Case has been discussed with [facility] and [facility] in [place], both of which have declined transfer At this time patient is unable to get required care at home We are awaiting the level 2 evaluation by the [facility] PLAN - Continue case management and social work for placement Diabetes Mellitus type 2, HbA1c- 9.9% Glucose trend 143-237 PLAN - Glargine 30u + premeal 3u - Accuchecks QID AC and HS - Hypoglycemia protocol - Medium intensity sliding scale Hypertension, improved control this am BP trend 132-160/61-104 Bradycardia on metoprolol, discontinued Patient on clonidine since admission, upon further investigation by pharmacy patient had not been taking any medications except for toujeo. Clonidine could be worsening mental status so will discontinue PLAN - Continue losartan 100mg QD and amlodipine 10 mg QD - PRN Hydralazine - Follow BP Subclinical hypothyroidism - TSH 6.076 (elevated), free T4 0.84 (normal) CKD stage III -improving GFR stable since admission PLAN - Monitor urinary output - Renally dosed medications, avoid nephrotoxic agents Hypomagnesemia -resolved Hypokalemia -resolved PROPHYLAXIS DVT- ambulation and compression stockings GI- not indicated CODE STATUS: DNR/DNI DISPOSITION: Pending placement at psychiatric hospital or home pending Length of stay greater than 96 hours secondary to inability to obtain placement.
[2019-11-28] MEDS ORDERED: [UNRECOGNIZED DRUG - REMARK] TRDERM SCH (20:00)
[2019-11-28] MEDS: Losartan 100 MG Tab PO SCH (21:34)
[2019-11-28] MEDS: Insulin Glarg,Human.Rec.Analog 100 Unit/ML SUBCUT SCH (21:35)
[2019-11-28] MEDS: QUEtiapine 100 MG Tab PO SCH (21:35)
[2019-11-29] MEDS: Insulin Lispro 100 Units/ML 3 ML Vial SUBCUT SCH ×7 (06:10→21:32)
[2019-11-29] MEDS ORDERED: Insulin Lispro 100 Units/ML 3 ML Vial SUBCUT ONE (09:28)
[2019-11-29] MEDS: amLODIPine 10 MG Tab PO SCH (09:37)
[2019-11-29] MEDS: Potassium Chloride 10 MEQ Tab.ER PO SCH (09:38)
[2019-11-29] MEDS: FLUoxetine 20 MG Cap PO SCH (09:38)
[2019-11-29] MEDS: Cholecalciferol (Vitamin D3) 5,000 UNIT Tab PO SCH (09:38)
--- NOTE | 2019-11-29 13:34 | PCM.PN ---
- General Info Date of Service: 11/29/19 Subjective Update: BM 11/27 Tolerating diet Slept ok Ambulating with walker - Patient Data Vitals - Most Recent: Last Vital Signs Temp 97.9 F 11/29/19 11:24 Pulse 66 11/29/19 11:24 Resp 16 11/29/19 11:24 BP 120/61 11/29/19 11:24 Pulse Ox 98 11/29/19 11:24 Weight - Most Recent: 72.348 kg - Exam General: Alert, Cooperative, No Acute Distress HEENT: Mucous Membr. Moist/[place]. No: Scleral Icterus Neck: Supple, Trachea Midline, No JVD, No Thyromegaly, +2 Carotid Pulse wo Bruit Lungs: Clear to Auscultation, Normal Respiratory Effort. No: Crackles, Rales, Rhonchi, Wheezing Cardiovascular: Regular Rate, Regular Rhythm. No: Murmurs, Gallops, Rubs GI/Abdominal Exam: Normal Bowel Sounds, Soft, Non-Tender, No Organomegaly, No Distention. No: Guarding, Rigid, Rebound Back Exam: Normal Inspection Extremities: Normal Inspection, No Pedal Edema, Normal Capillary Refill Sepsis Event Note - Evaluation Sepsis Screening Result: No Definite Risk - Focused Exam Vital Signs: Vital Signs Temp Pulse Resp BP Pulse Ox 11/29/19 11:24 97.9 F 66 16 120/61 98 11/29/19 09:37 139/62 11/29/19 07:32 97.7 F 63 12 139/62 95 11/29/19 05:44 97.9 F 81 18 151/74 H 98 Date Exam was Performed: 11/29/19 Time Exam was Performed: 13:29 - Problem List & Annotations (1) Psychosis SNOMED Code(s): 72893411 Code(s): F29 - UNSP PSYCHOSIS NOT DUE TO A SUBSTANCE OR KNOWN PHYSIOL COND Status: Acute Current Visit: Yes (2) Altered mental status SNOMED Code(s): 639859831 Code(s): R41.82 - ALTERED MENTAL STATUS, UNSPECIFIED Status: Acute Current Visit: Yes (3) CKD (chronic kidney disease), stage III SNOMED Code(s): 131747412 Code(s): N18.3 - CHRONIC KIDNEY DISEASE, STAGE 3 (MODERATE) Status: Acute Current Visit: Yes (4) Hypokalemia SNOMED Code(s): 32129432 Code(s): E87.6 - HYPOKALEMIA Status: Acute Current Visit: Yes (5) Hypomagnesemia SNOMED Code(s): 808452069 Code(s): E83.42 - HYPOMAGNESEMIA Status: Acute Current Visit: Yes (6) Poor compliance SNOMED Code(s): 1898066 Code(s): Z91.19 - PATIENT'S NONCOMPLIANCE W OTH MEDICAL TREATMENT AND REGIMEN Status: Acute Current Visit: Yes (7) Uncontrolled diabetes mellitus SNOMED Code(s): 99336235, 030282822 Code(s): E11.65 - TYPE 2 DIABETES MELLITUS WITH HYPERGLYCEMIA Status: Acute Current Visit: Yes (8) Uncontrolled hypertension SNOMED Code(s): 25553458, 69161850 Code(s): I10 - ESSENTIAL (PRIMARY) HYPERTENSION Status: Acute Current Visit: Yes - Problem List Review Problem List Initiated/Reviewed/Updated: Yes - Plan Plan:: Dementia with episodes of delirium and psychosis Patient clinically stable Mental status continues to be altered, this is likely multifactorial Psychiatry has evaluated patient multiple times and continues to recommend inpatient psychiatry Case has been discussed with [place] and [facility] in [place], both of which have declined transfer At this time patient is unable to get required care at home Level 2 state evaluation performed today Accepted at [facility], they are holding a bed for her PLAN - Continue case management and social work for placement Diabetes Mellitus type 2, HbA1c- 9.9% Glucose trend 128-202 PLAN - Glargine 30u + premeal 3u - Change premeal to 5u - Accuchecks QID AC and HS - Hypoglycemia protocol - Medium intensity sliding scale Hypertension, improved control this am BP trend 116-159/57-116 Bradycardia on metoprolol, discontinued Patient on clonidine since admission, upon further investigation by pharmacy patient had not been taking any medications except for toujeo. Clonidine could be worsening mental status so will discontinue PLAN - Continue losartan 100mg QD and amlodipine 10 mg QD - PRN Hydralazine - Follow BP Subclinical hypothyroidism - TSH 6.076 (elevated), free T4 0.84 (normal) CKD stage III -improving GFR stable since admission PLAN - Monitor urinary output - Renally dosed medications, avoid nephrotoxic agents Hypomagnesemia -resolved Hypokalemia -resolved PROPHYLAXIS DVT- ambulation and compression stockings GI- not indicated CODE STATUS: DNR/DNI DISPOSITION: Pending placement at psychiatric hospital or assisted. Length of stay greater than 96 hours secondary to inability to obtain placement.
[2019-11-29] MEDS: QUEtiapine 100 MG Tab PO SCH (21:30)
[2019-11-29] MEDS: Losartan 100 MG Tab PO SCH (21:30)
[2019-11-29] MEDS: Insulin Glarg,Human.Rec.Analog 100 Unit/ML SUBCUT SCH (21:31)
[2019-11-30] MEDS: Insulin Lispro 100 Units/ML 3 ML Vial SUBCUT SCH ×7 (07:26→21:32)
[2019-11-30] MEDS: Potassium Chloride 10 MEQ Tab.ER PO SCH (08:28)
[2019-11-30] MEDS: Cholecalciferol (Vitamin D3) 5,000 UNIT Tab PO SCH (08:29)
[2019-11-30] MEDS: amLODIPine 10 MG Tab PO SCH (08:29)
[2019-11-30] MEDS: FLUoxetine 20 MG Cap PO SCH (08:30)
--- NOTE | 2019-11-30 15:25 | PCM.PN ---
- General Info Date of Service: 11/30/19 Subjective Update: Feeling ok Tolerating diet Slept OK Ambulating - Patient Data Vitals - Most Recent: Last Vital Signs Temp 97.9 F 11/30/19 08:20 Pulse 71 11/30/19 08:20 Resp 16 11/30/19 08:20 BP 166/83 H 11/30/19 08:29 Pulse Ox 95 11/30/19 08:20 Weight - Most Recent: 72.348 kg - Exam General: Alert, Cooperative, No Acute Distress HEENT: Pupils Equal, Pupils Reactive, EOMI Neck: Supple, Trachea Midline, No JVD, No Thyromegaly, +2 Carotid Pulse wo Bruit Lungs: Clear to Auscultation, Normal Respiratory Effort. No: Crackles, Rales, Rhonchi, Wheezing Cardiovascular: Regular Rate, Regular Rhythm. No: Murmurs, Gallops, Rubs GI/Abdominal Exam: Normal Bowel Sounds, Soft, Non-Tender, No Organomegaly. No: Distended, Guarding, Rigid Extremities: Normal Inspection, Non-Tender, No Pedal Edema, Normal Capillary Refill Skin: Warm, Dry Neurological: No New Focal Deficit Psy/Mental Status: Alert Sepsis Event Note - Evaluation Sepsis Screening Result: No Definite Risk - Focused Exam Vital Signs: Vital Signs Temp Pulse Resp BP BP Pulse Ox 11/30/19 08:29 166/83 H 11/30/19 08:20 97.9 F 71 16 166/83 H 95 11/30/19 06:14 165/77 H 11/30/19 05:36 170/70 H 11/30/19 05:18 99.0 F 69 18 93 L Date Exam was Performed: 11/30/19 Time Exam was Performed: 15:16 - Problem List & Annotations (1) Psychosis SNOMED Code(s): 90547492 Code(s): F29 - UNSP PSYCHOSIS NOT DUE TO A SUBSTANCE OR KNOWN PHYSIOL COND Status: Acute Current Visit: Yes (2) Altered mental status SNOMED Code(s): 884443831 Code(s): R41.82 - ALTERED MENTAL STATUS, UNSPECIFIED Status: Acute Current Visit: Yes (3) CKD (chronic kidney disease), stage III SNOMED Code(s): 938528309 Code(s): N18.3 - CHRONIC KIDNEY DISEASE, STAGE 3 (MODERATE) Status: Acute Current Visit: Yes (4) Hypokalemia SNOMED Code(s): 74901064 Code(s): E87.6 - HYPOKALEMIA Status: Acute Current Visit: Yes (5) Hypomagnesemia SNOMED Code(s): 722511354 Code(s): E83.42 - HYPOMAGNESEMIA Status: Acute Current Visit: Yes (6) Poor compliance SNOMED Code(s): 4227978 Code(s): Z91.19 - PATIENT'S NONCOMPLIANCE W OTH MEDICAL TREATMENT AND REGIMEN Status: Acute Current Visit: Yes (7) Uncontrolled diabetes mellitus SNOMED Code(s): 90801357, 224743293 Code(s): E11.65 - TYPE 2 DIABETES MELLITUS WITH HYPERGLYCEMIA Status: Acute Current Visit: Yes (8) Uncontrolled hypertension SNOMED Code(s): 78926383, 61915404 Code(s): I10 - ESSENTIAL (PRIMARY) HYPERTENSION Status: Acute Current Visit: Yes - Problem List Review Problem List Initiated/Reviewed/Updated: Yes - Plan Plan:: Dementia with episodes of delirium and psychosis Patient clinically stable Mental status continues to be altered, this is likely multifactorial Psychiatry has evaluated patient multiple times and continues to recommend inpatient psychiatry Case has been discussed with [facility] and [facility] in [place], both of which have declined transfer At this time patient is unable to get required care at home Level 2 state evaluation performed today Accepted at [facility], they are holding a bed for her PLAN - Continue case management and social work for placement Diabetes Mellitus type 2, HbA1c- 9.9% Glucose trend 130-222 used 8 sliding scale units PLAN - Glargine 30u + premeal 7u - Change premeal to 7u - Accuchecks QID AC and HS - Hypoglycemia protocol - Medium intensity sliding scale Hypertension, improved control this am BP trend 120-160/61-99 Bradycardia on metoprolol, discontinued Patient on clonidine since admission, upon further investigation by pharmacy patient had not been taking any medications except for toujeo. Clonidine could be worsening mental status so will discontinue PLAN - Continue losartan 100mg QD and amlodipine 10 mg QD - PRN Hydralazine - Follow BP Subclinical hypothyroidism - TSH 6.076 (elevated), free T4 0.84 (normal) CKD stage III -improving GFR stable since admission PLAN - Monitor urinary output - Renally dosed medications, avoid nephrotoxic agents Hypomagnesemia -resolved Hypokalemia -resolved PROPHYLAXIS DVT- ambulation and compression stockings GI- not indicated CODE STATUS: DNR/DNI DISPOSITION: Pending placement at psychiatric hospital or custodial. Length of stay greater than 96 hours secondary to inability to obtain placement.
[2019-11-30] MEDS: Losartan 100 MG Tab PO SCH (21:30)
[2019-11-30] MEDS: QUEtiapine 100 MG Tab PO SCH (21:31)
[2019-11-30] MEDS: Insulin Glarg,Human.Rec.Analog 100 Unit/ML SUBCUT SCH (21:31)
[2019-12-01] MEDS: Insulin Lispro 100 Units/ML 3 ML Vial SUBCUT SCH ×7 (07:21→21:22)
[2019-12-01] MEDS: amLODIPine 10 MG Tab PO SCH (09:12)
[2019-12-01] MEDS: Potassium Chloride 10 MEQ Tab.ER PO SCH (09:13)
[2019-12-01] MEDS: Cholecalciferol (Vitamin D3) 5,000 UNIT Tab PO SCH (09:13)
[2019-12-01] MEDS: FLUoxetine 20 MG Cap PO SCH (09:13)
[2019-12-01] MEDS: Chlorthalidone 25 MG Tab PO SCH (10:42)
--- NOTE | 2019-12-01 13:37 | PCM.PN ---
- General Info Date of Service: 12/01/19 Subjective Update: Feeling ok Tolerating diet Ambulating BM yesterday - Patient Data Vitals - Most Recent: Last Vital Signs Temp 98.4 F 12/01/19 08:53 Pulse 83 12/01/19 08:53 Resp 18 12/01/19 08:53 BP 176/86 H 12/01/19 09:12 Pulse Ox 94 L 12/01/19 08:53 Weight - Most Recent: 73.074 kg - Exam General: Alert, Cooperative, No Acute Distress HEENT: Mucous Membr. Moist/[place] Neck: Supple, Trachea Midline, No JVD, No Thyromegaly, +2 Carotid Pulse wo Bruit. No: Lymphadenopathy Lungs: Clear to Auscultation, Normal Respiratory Effort. No: Crackles, Rales, Rhonchi, Rub, Wheezing Cardiovascular: Regular Rate, Regular Rhythm. No: Murmurs, Gallops, Rubs GI/Abdominal Exam: Normal Bowel Sounds, Soft, Non-Tender, No Organomegaly. No: Distended, Guarding, Rigid, Rebound Back Exam: Normal Inspection Extremities: Normal Inspection, Normal Range of Motion, Non-Tender, No Pedal Edema, Normal Capillary Refill Sepsis Event Note - Evaluation Sepsis Screening Result: No Definite Risk - Focused Exam Vital Signs: Vital Signs Temp Pulse Resp BP Pulse Ox 12/01/19 09:12 176/86 H 12/01/19 08:53 98.4 F 83 18 176/86 H 94 L 12/01/19 06:55 74 147/83 H 91 L Date Exam was Performed: 12/01/19 Time Exam was Performed: 13:32 - Problem List & Annotations (1) Psychosis SNOMED Code(s): 74152728 Code(s): F29 - UNSP PSYCHOSIS NOT DUE TO A SUBSTANCE OR KNOWN PHYSIOL COND Status: Acute Current Visit: Yes (2) Altered mental status SNOMED Code(s): 430430362 Code(s): R41.82 - ALTERED MENTAL STATUS, UNSPECIFIED Status: Acute Current Visit: Yes (3) CKD (chronic kidney disease), stage III SNOMED Code(s): 703974613 Code(s): N18.3 - CHRONIC KIDNEY DISEASE, STAGE 3 (MODERATE) Status: Acute Current Visit: Yes (4) Hypokalemia SNOMED Code(s): 06911706 Code(s): E87.6 - HYPOKALEMIA Status: Acute Current Visit: Yes (5) Hypomagnesemia SNOMED Code(s): 606427073 Code(s): E83.42 - HYPOMAGNESEMIA Status: Acute Current Visit: Yes (6) Poor compliance SNOMED Code(s): 7405780 Code(s): Z91.19 - PATIENT'S NONCOMPLIANCE W OTH MEDICAL TREATMENT AND REGIMEN Status: Acute Current Visit: Yes (7) Uncontrolled diabetes mellitus SNOMED Code(s): 31239537, 179596746 Code(s): E11.65 - TYPE 2 DIABETES MELLITUS WITH HYPERGLYCEMIA Status: Acute Current Visit: Yes (8) Uncontrolled hypertension SNOMED Code(s): 13639618, 87601221 Code(s): I10 - ESSENTIAL (PRIMARY) HYPERTENSION Status: Acute Current Visit: Yes - Problem List Review Problem List Initiated/Reviewed/Updated: Yes - Plan Plan:: Dementia with episodes of delirium and psychosis Patient clinically stable Mental status continues to be altered, this is likely multifactorial--> Currently patient states she is at home and the hospital has been placed here by other people, she doesnt understand why; she also stated we keep trying to convince her that she is in a hospital but she will not be convinced, this is her house and she built it with her own 2 hands, when asked about her daughter she states the daughter has already been convinced about the whole hospital situation Psychiatry has evaluated patient multiple times and continues to recommend inpatient psychiatry Case has been discussed with [place] [facility] and [facility] in [place], both of which have declined transfer At this time patient is unable to get required care at home Level 2 state evaluation performed today Accepted at [facility], they are holding a bed for her PLAN - Continue case management and social work for placement Diabetes Mellitus type 2, HbA1c- 9.9% Glucose trend 130-248, used 6 sliding scale units PLAN - Glargine 30u + premeal 7u - Accuchecks QID AC and HS - Hypoglycemia protocol - Medium intensity sliding scale Hypertension, improved control this am BP trend 140-165/77-96 Bradycardia on metoprolol, discontinued Patient on clonidine since admission, upon further investigation by pharmacy patient had not been taking any medications except for toujeo. Clonidine could be worsening mental status so will discontinue PLAN - Continue losartan 100mg QD and amlodipine 10 mg QD - Added chlorthalidone - PRN Hydralazine - Follow BP Subclinical hypothyroidism - TSH 6.076 (elevated), free T4 0.84 (normal) CKD stage III -improving GFR stable since admission PLAN - Monitor urinary output - Renally dosed medications, avoid nephrotoxic agents Hypomagnesemia -resolved Hypokalemia -resolved PROPHYLAXIS DVT- ambulation and compression stockings GI- not indicated CODE STATUS: DNR/DNI DISPOSITION: Pending placement at psychiatric hospital or fci. Length of stay greater than 96 hours secondary to inability to obtain placement.
[2019-12-01] MEDS: QUEtiapine 100 MG Tab PO SCH (20:11)
[2019-12-01] MEDS: Losartan 100 MG Tab PO SCH (20:12)
[2019-12-01] MEDS: Insulin Glarg,Human.Rec.Analog 100 Unit/ML SUBCUT SCH (21:20)
[2019-12-02] MEDS: Insulin Lispro 100 Units/ML 3 ML Vial SUBCUT SCH ×7 (08:13→21:34)
[2019-12-02] MEDS: Chlorthalidone 25 MG Tab PO SCH (08:27)
[2019-12-02] MEDS: FLUoxetine 20 MG Cap PO SCH (08:28)
[2019-12-02] MEDS: Cholecalciferol (Vitamin D3) 5,000 UNIT Tab PO SCH (08:28)
[2019-12-02] MEDS: Potassium Chloride 10 MEQ Tab.ER PO SCH (08:28)
[2019-12-02] MEDS: amLODIPine 10 MG Tab PO SCH (08:29)
--- NOTE | 2019-12-02 16:10 | PCM.PN ---
- General Info Date of Service: 12/02/19 Subjective Update: Feeling ok Tolerating diet Ambulating ok No complaints - Patient Data Vitals - Most Recent: Last Vital Signs Temp 98.6 F 12/02/19 14:40 Pulse 77 12/02/19 14:40 Resp 20 12/02/19 14:40 BP 171/61 H 12/02/19 14:40 Pulse Ox 97 12/02/19 14:40 Weight - Most Recent: 72.529 kg - Exam General: Alert, Cooperative, No Acute Distress HEENT: Pupils Equal, Pupils Reactive, Mucous Membr. Moist/[place] Neck: Supple, Trachea Midline, No JVD, No Thyromegaly Lungs: Clear to Auscultation, Normal Respiratory Effort. No: Crackles, Rales, Rhonchi, Wheezing Cardiovascular: Regular Rate, Regular Rhythm. No: Murmurs, Gallops, Rubs GI/Abdominal Exam: Normal Bowel Sounds, Soft, Non-Tender, No Organomegaly. No: Distended, Guarding, Rigid Back Exam: Normal Inspection Extremities: Normal Inspection, Normal Range of Motion, Non-Tender, No Pedal Edema, Normal Capillary Refill Sepsis Event Note - Evaluation Sepsis Screening Result: No Definite Risk - Focused Exam Vital Signs: Vital Signs Temp Pulse Resp BP Pulse Ox 12/02/19 14:40 98.6 F 77 20 171/61 H 97 12/02/19 08:29 179/74 H 12/02/19 07:56 98.8 F 75 16 179/74 H 93 L 12/02/19 04:07 75 16 151/77 H 91 L Date Exam was Performed: 12/03/19 Time Exam was Performed: 13:32 - Problem List & Annotations (1) Psychosis SNOMED Code(s): 07768002 Code(s): F29 - UNSP PSYCHOSIS NOT DUE TO A SUBSTANCE OR KNOWN PHYSIOL COND Status: Acute Current Visit: Yes (2) Altered mental status SNOMED Code(s): 633063277 Code(s): R41.82 - ALTERED MENTAL STATUS, UNSPECIFIED Status: Acute Current Visit: Yes (3) CKD (chronic kidney disease), stage III SNOMED Code(s): 101305093 Code(s): N18.3 - CHRONIC KIDNEY DISEASE, STAGE 3 (MODERATE) Status: Acute Current Visit: Yes (4) Hypokalemia SNOMED Code(s): 48421696 Code(s): E87.6 - HYPOKALEMIA Status: Acute Current Visit: Yes (5) Hypomagnesemia SNOMED Code(s): 514208758 Code(s): E83.42 - HYPOMAGNESEMIA Status: Acute Current Visit: Yes (6) Poor compliance SNOMED Code(s): 0030779 Code(s): Z91.19 - PATIENT'S NONCOMPLIANCE W OTH MEDICAL TREATMENT AND REGIMEN Status: Acute Current Visit: Yes (7) Uncontrolled diabetes mellitus SNOMED Code(s): 40413976, 849590653 Code(s): E11.65 - TYPE 2 DIABETES MELLITUS WITH HYPERGLYCEMIA Status: Acute Current Visit: Yes (8) Uncontrolled hypertension SNOMED Code(s): 99098421, 13320312 Code(s): I10 - ESSENTIAL (PRIMARY) HYPERTENSION Status: Acute Current Visit: Yes - Problem List Review Problem List Initiated/Reviewed/Updated: Yes - Plan Plan:: Dementia with episodes of delirium and psychosis Patient clinically stable Mental status continues to be altered, this is likely multifactorial--> Currently patient states she is at home and the hospital has been placed here by other people, she doesnt understand why; she also stated we keep trying to convince her that she is in a hospital but she will not be convinced, this is her house and she built it with her own 2 hands, when asked about her daughter she states the daughter has already been convinced about the whole hospital situation Psychiatry has evaluated patient multiple times and continues to recommend inpatient psychiatry Case has been discussed with [place] and [facility] in [place], both of which have declined transfer At this time patient is unable to get required care at home Level 2 state evaluation performed today Accepted at [facility], they are holding a bed for her PLAN - Continue case management and social work for placement Diabetes Mellitus type 2, HbA1c- 9.9% Glucose trend 103-248, used 6 sliding scale units PLAN - Glargine 30u + premeal 7u - Accuchecks QID AC and HS - Hypoglycemia protocol - Medium intensity sliding scale Hypertension, improved control this am BP trend 140-165/77-96 Bradycardia on metoprolol, discontinued Patient on clonidine since admission, upon further investigation by pharmacy patient had not been taking any medications except for toujeo. Clonidine could be worsening mental status so will discontinue PLAN - Continue losartan 100mg QD and amlodipine 10 mg QD - Added chlorthalidone - PRN Hydralazine - Follow BP Subclinical hypothyroidism - TSH 6.076 (elevated), free T4 0.84 (normal) CKD stage III -improving GFR stable since admission PLAN - Monitor urinary output - Renally dosed medications, avoid nephrotoxic agents Hypomagnesemia -resolved Hypokalemia -resolved PROPHYLAXIS DVT- ambulation and compression stockings GI- not indicated CODE STATUS: DNR/DNI DISPOSITION: Pending placement at psychiatric hospital or long term. Length of stay greater than 96 hours secondary to inability to obtain placement.
[2019-12-02] MEDS: QUEtiapine 100 MG Tab PO SCH (21:33)
[2019-12-02] MEDS: Insulin Glarg,Human.Rec.Analog 100 Unit/ML SUBCUT SCH (21:33)
[2019-12-02] MEDS: Losartan 100 MG Tab PO SCH (21:35)
[2019-12-03] MEDS: Insulin Lispro 100 Units/ML 3 ML Vial SUBCUT SCH ×7 (06:32→21:21)
[2019-12-03] MEDS: Potassium Chloride 10 MEQ Tab.ER PO SCH (08:27)
[2019-12-03] MEDS: amLODIPine 10 MG Tab PO SCH (08:27)
[2019-12-03] MEDS: FLUoxetine 20 MG Cap PO SCH (08:27)
[2019-12-03] MEDS: Cholecalciferol (Vitamin D3) 5,000 UNIT Tab PO SCH (08:27)
[2019-12-03] MEDS: Chlorthalidone 25 MG Tab PO SCH (08:27)
--- NOTE | 2019-12-03 13:13 | PCM.PN ---
- General Info Date of Service: 12/03/19 Subjective Update: Feeling ok Tolerating diet Ambulating - Patient Data Weight - Most Recent: 72.484 kg - Exam General: Alert, Cooperative, No Acute Distress HEENT: Mucous Membr. Moist/[place]. No: Scleral Icterus Neck: Supple, Trachea Midline, No JVD, No Thyromegaly, +2 Carotid Pulse wo Bruit. No: Lymphadenopathy Lungs: Clear to Auscultation, Normal Respiratory Effort. No: Crackles, Rales, Rhonchi, Wheezing Cardiovascular: Regular Rate, Regular Rhythm. No: Murmurs, Gallops, Rubs GI/Abdominal Exam: Normal Bowel Sounds, Soft, Non-Tender. No: Distended, Guarding, Rigid, Rebound Back Exam: Normal Inspection, Full Range of Motion Extremities: Normal Inspection, Normal Range of Motion, Non-Tender, No Pedal Edema, Normal Capillary Refill Sepsis Event Note - Evaluation Sepsis Screening Result: No Definite Risk - Focused Exam Vital Signs: Vital Signs Temp Pulse Resp BP Pulse Ox 12/03/19 08:27 160/110 H 12/03/19 08:18 97.9 F 70 16 160/110 H 95 Date Exam was Performed: 12/03/19 Time Exam was Performed: 13:32 - Problem List & Annotations (1) Psychosis SNOMED Code(s): 47787670 Code(s): F29 - UNSP PSYCHOSIS NOT DUE TO A SUBSTANCE OR KNOWN PHYSIOL COND Status: Acute Current Visit: Yes (2) Altered mental status SNOMED Code(s): 528012741 Code(s): R41.82 - ALTERED MENTAL STATUS, UNSPECIFIED Status: Acute Current Visit: Yes (3) CKD (chronic kidney disease), stage III SNOMED Code(s): 122949644 Code(s): N18.3 - CHRONIC KIDNEY DISEASE, STAGE 3 (MODERATE) Status: Acute Current Visit: Yes (4) Hypokalemia SNOMED Code(s): 58563476 Code(s): E87.6 - HYPOKALEMIA Status: Acute Current Visit: Yes (5) Hypomagnesemia SNOMED Code(s): 716150120 Code(s): E83.42 - HYPOMAGNESEMIA Status: Acute Current Visit: Yes (6) Poor compliance SNOMED Code(s): 8982298 Code(s): Z91.19 - PATIENT'S NONCOMPLIANCE W OTH MEDICAL TREATMENT AND REGIMEN Status: Acute Current Visit: Yes (7) Uncontrolled diabetes mellitus SNOMED Code(s): 64197687, 073372303 Code(s): E11.65 - TYPE 2 DIABETES MELLITUS WITH HYPERGLYCEMIA Status: Acute Current Visit: Yes (8) Uncontrolled hypertension SNOMED Code(s): 61898156, 33450761 Code(s): I10 - ESSENTIAL (PRIMARY) HYPERTENSION Status: Acute Current Visit: Yes - Problem List Review Problem List Initiated/Reviewed/Updated: Yes - Plan Plan:: Dementia with episodes of delirium and psychosis Patient clinically stable Mental status continues to be altered, this is likely multifactorial--> Currently patient states she is at home and the hospital has been placed here by other people, she doesnt understand why; she also stated we keep trying to convince her that she is in a hospital but she will not be convinced, this is her house and she built it with her own 2 hands, when asked about her daughter she states the daughter has already been convinced about the whole hospital situation Psychiatry has evaluated patient multiple times and continues to recommend inpatient psychiatry Case has been discussed with [facility] and [facility] in [place], both of which have declined transfer At this time patient is unable to get required care at home Level 2 state evaluation performed Accepted at [facility], they are holding a bed for her PLAN - Continue case management and social work for placement Diabetes Mellitus type 2, HbA1c- 9.9% Glucose trend 102-217, used 6 sliding scale units PLAN - Glargine 30u + pre breakfast and lunch 7u, pre dinner 9u - Accuchecks QID AC and HS - Hypoglycemia protocol - Medium intensity sliding scale Hypertension, improved control this am BP trend 148-179/61-89 Bradycardia on metoprolol, discontinued Patient on clonidine since admission, upon further investigation by pharmacy patient had not been taking any medications except for toujeo. Clonidine could be worsening mental status so will discontinue PLAN - Continue losartan 100mg QD and amlodipine 10 mg QD - Added chlorthalidone - PRN Hydralazine - Follow BP Subclinical hypothyroidism - TSH 6.076 (elevated), free T4 0.84 (normal) CKD stage III GFR stable since admission PLAN - Monitor urinary output - Renally dosed medications, avoid nephrotoxic agents Hypomagnesemia -resolved Hypokalemia -resolved PROPHYLAXIS DVT- ambulation and compression stockings GI- not indicated CODE STATUS: DNR/DNI DISPOSITION: Pending placement at psychiatric hospital or snf. Length of stay greater than 96 hours secondary to inability to obtain placement.
[2019-12-03] MEDS: Losartan 100 MG Tab PO SCH (21:12)
[2019-12-03] MEDS: QUEtiapine 100 MG Tab PO SCH (21:12)
[2019-12-03] MEDS: Acetaminophen 325 MG Tab PO PRN (21:13)
[2019-12-03] MEDS: Insulin Glarg,Human.Rec.Analog 100 Unit/ML SUBCUT SCH (21:14)
[2019-12-04] MEDS: Insulin Lispro 100 Units/ML 3 ML Vial SUBCUT SCH ×7 (06:52→21:12)
[2019-12-04] MEDS: Cholecalciferol (Vitamin D3) 5,000 UNIT Tab PO SCH (08:00)
[2019-12-04] MEDS: Potassium Chloride 10 MEQ Tab.ER PO SCH (08:00)
[2019-12-04] MEDS: FLUoxetine 20 MG Cap PO SCH (08:00)
[2019-12-04] MEDS: Chlorthalidone 25 MG Tab PO SCH (08:00)
[2019-12-04] MEDS: amLODIPine 10 MG Tab PO SCH (08:00)
[2019-12-04] MEDS ORDERED: Magnesium Sulfate/Water 2 GM in Premix Bag 1 BAG IV ONE (16:04)
--- NOTE | 2019-12-04 16:10 | PCM.PN ---
- General Info Date of Service: 12/04/19 Admission Dx/Problem (Free Text): Admission Diagnosis/Problem Admission Diagnosis/Problem Hyperglycemia Subjective Update: Patient is doing well without any complaints. Denies any fever or chills. Denies any chest pain or shortness of breath. Functional Status: Reports: Pain Controlled - Review of Systems General: Reports: No Symptoms HEENT: Reports: No Symptoms Pulmonary: Reports: No Symptoms Cardiovascular: Reports: No Symptoms Gastrointestinal: Reports: No Symptoms Musculoskeletal: Reports: No Symptoms - Patient Data Vitals - Most Recent: Last Vital Signs Temp 98.4 F 12/04/19 15:05 Pulse 73 12/04/19 15:05 Resp 20 12/04/19 15:05 BP 160/47 H 12/04/19 15:05 Pulse Ox 98 12/04/19 15:05 Weight - Most Recent: 158 lb 1.6 oz I&O - Last 24 Hours: Intake & Output 12/04/19 12/04/19 12/04/19 06:59 14:59 22:59 Intake Total 300 240 560 Output Total 700 Balance -400 240 560 Lab Results Last 24 Hours: Laboratory Results - last 24 hr 12/03/19 12/03/19 12/04/19 Range/Units 17:23 21:19 06:26 WBC (3.98-10.04) K/mm3 RBC (3.98-5.22) M/mm3 Hgb (11.2-15.7) gm/dl Hct (34.1-44.9) % MCV (79.4-94.8) fl MCH (25.6-32.2) pg MCHC (32.2-35.5) g/dl RDW Std Deviation (36.4-46.3) fL Plt Count (182-369) K/mm3 MPV (9.4-12.3) fl Neut % (Auto) (34.0-71.1) % Lymph % (Auto) (19.3-51.7) % [place] % (Auto) (4.7-12.5) % Eos % (Auto) (0.7-5.8) Baso % (Auto) (0.1-1.2) % Neut # (Auto) (1.56-6.13) K/mm3 Lymph # (Auto) (1.18-3.74) K/mm3 [place] # (Auto) (0.24-0.36) K/mm3 Eos # (Auto) (0.04-0.36) K/mm3 Baso # (Auto) (0.01-0.08) K/mm3 Sodium (136-145) mEq/L Potassium (3.5-5.1) mEq/L Chloride (98-107) mEq/L Carbon Dioxide (21-32) mEq/L Anion Gap (5-15) BUN (7-18) mg/dL Creatinine (0.55-1.02) mg/dL Est Cr Clr Drug Dosing mL/min Estimated GFR (MDRD) (>60) mL/min BUN/Creatinine Ratio (14-18) Glucose (83-115) mg/dL POC Glucose 223 H 167 H 136 H (83-110) mg/dL Calcium (8.5-10.1) mg/dL Magnesium (1.8-2.4) mg/dl Total Bilirubin (0.2-1.0) mg/dL AST (15-37) U/L ALT (14-59) U/L Alkaline Phosphatase (46-116) U/L Total Protein (6.4-8.2) g/dl Albumin (3.4-5.0) g/dl Globulin gm/dL Albumin/Globulin Ratio (1-2) 12/04/19 12/04/19 12/04/19 Range/Units 08:03 08:03 11:13 WBC 5.75 (3.98-10.04) K/mm3 RBC 4.21 (3.98-5.22) M/mm3 Hgb 11.8 (11.2-15.7) gm/dl Hct 35.6 (34.1-44.9) % MCV 84.6 (79.4-94.8) fl MCH 28.0 (25.6-32.2) pg MCHC 33.1 (32.2-35.5) g/dl RDW Std Deviation 38.8 (36.4-46.3) fL Plt Count 178 L (182-369) K/mm3 MPV 9.2 L (9.4-12.3) fl Neut % (Auto) 67.5 (34.0-71.1) % Lymph % (Auto) 20.3 (19.3-51.7) % [place] % (Auto) 7.5 (4.7-12.5) % Eos % (Auto) 4.3 (0.7-5.8) Baso % (Auto) 0.2 (0.1-1.2) % Neut # (Auto) 3.88 (1.56-6.13) K/mm3 Lymph # (Auto) 1.17 L (1.18-3.74) K/mm3 [place] # (Auto) 0.43 H (0.24-0.36) K/mm3 Eos # (Auto) 0.25 (0.04-0.36) K/mm3 Baso # (Auto) 0.01 (0.01-0.08) K/mm3 Sodium 139 (136-145) mEq/L Potassium 3.9 (3.5-5.1) mEq/L Chloride 104 (98-107) mEq/L Carbon Dioxide 27 (21-32) mEq/L Anion Gap 11.9 (5-15) BUN 34 H (7-18) mg/dL Creatinine 1.5 H (0.55-1.02) mg/dL Est Cr Clr Drug Dosing 26.02 mL/min Estimated GFR (MDRD) 34 (>60) mL/min BUN/Creatinine Ratio 22.7 H (14-18) Glucose 130 H (83-115) mg/dL POC Glucose 273 H (83-110) mg/dL Calcium 8.8 (8.5-10.1) mg/dL Magnesium 1.7 L (1.8-2.4) mg/dl Total Bilirubin 0.5 (0.2-1.0) mg/dL AST 14 L (15-37) U/L ALT 19 (14-59) U/L Alkaline Phosphatase 61 (46-116) U/L Total Protein 6.0 L (6.4-8.2) g/dl Albumin 2.7 L (3.4-5.0) g/dl Globulin 3.3 gm/dL Albumin/Globulin Ratio 0.8 L (1-2) Med Orders - Current: Current Medications Acetaminophen (Tylenol) 650 mg PO Q4H PRN PRN Reason: Pain (Mild 1-3)/fever Last Admin: 12/03/19 21:13 Dose: 650 mg Amlodipine Besylate (Norvasc) 10 mg PO DAILY [facility] Last Admin: 12/04/19 08:00 Dose: 10 mg Chlorthalidone (Chlorthalidone) 25 mg PO DAILY [facility] Last Admin: 12/04/19 08:00 Dose: 25 mg Cholecalciferol (Vitamin D3) 5,000 unit PO DAILY [facility] Last Admin: 12/04/19 08:00 Dose: 5,000 unit Fluoxetine HCl (Prozac) 20 mg PO DAILY [facility] Last Admin: 12/04/19 08:00 Dose: 20 mg Insulin Glargine (Lantus) 35 unit SUBCUT BEDTIME [facility] Last Admin: 12/03/19 21:14 Dose: 35 units Insulin Human Lispro (Humalog) 0 unit SUBCUT QIDACANDBED [facility]; Protocol Last Admin: 12/04/19 11:50 Dose: 6 units Insulin Human Lispro (Humalog) 10 unit SUBCUT ACDINNER [facility] Last Admin: 12/03/19 17:30 Dose: 10 units Insulin Human Lispro (Humalog) 7 unit SUBCUT ACLUNCH [facility] Last Admin: 12/04/19 11:50 Dose: 7 units Insulin Human Lispro (Humalog) 7 unit SUBCUT DAILY@0700 [facility] Last Admin: 12/04/19 08:00 Dose: 7 unit Losartan Potassium (Cozaar) 100 mg PO BEDTIME [facility] Last Admin: 12/03/19 21:12 Dose: 100 mg Ondansetron HCl (Zofran Odt) 4 mg PO Q6H PRN PRN Reason: nausea, able to take PO Potassium Chloride (Klor-Con 10) 10 meq PO DAILY [facility] Last Admin: 12/04/19 08:00 Dose: 10 meq Quetiapine Fumarate (Seroquel) 100 mg PO BEDTIME [facility] Last Admin: 12/03/19 21:12 Dose: 100 mg Discontinued Medications Amlodipine Besylate (Norvasc) 10 mg PO DAILY [facility] Last Admin: 11/21/19 08:49 Dose: 10 mg Clonidine HCl (Catapres-Tts 1) 0.1 mg TRDERM Q7D [facility] Last Admin: 11/21/19 21:38 Dose: 0.1 mg Dextrose/Water (Dextrose 50% In Water) 50 ml IVPUSH ASDIRECTED PRN PRN Reason: Hypoglycemia Hydralazine HCl (Apresoline) 10 mg IVPUSH ONETIME ONE Stop: 11/19/19 23:50 Last Admin: 11/20/19 00:19 Dose: Not Given Hydralazine HCl (Apresoline) 10 mg IVPUSH Q2H PRN PRN Reason: Hypertension Last Admin: 11/20/19 03:13 Dose: 10 mg Hydralazine HCl (Apresoline) 25 mg PO Q8HR [facility] Last Admin: 11/27/19 05:16 Dose: 25 mg Hydrochlorothiazide (Hydrochlorothiazide) 12.5 mg PO DAILY [facility] Last Admin: 11/23/19 09:12 Dose: 12.5 mg Hydrochlorothiazide (Hydrochlorothiazide) 12.5 mg PO ONETIME [facility] Stop: 11/20/19 16:42 Last Admin: 11/20/19 18:01 Dose: 12.5 mg Magnesium Sulfate 4 gm/ Premix 100 mls @ 25 mls/hr IV ONETIME ONE Stop: 11/21/19 13:29 Last Admin: 11/21/19 10:32 Dose: 25 mls/hr Sodium Chloride (Normal Saline) 1,000 mls @ 100 mls/hr IV ASDIRECTED [facility] Stop: 11/24/19 17:59 Last Admin: 11/24/19 08:05 Dose: 100 mls/hr Magnesium Sulfate 2 gm/ Premix 50 mls @ 25 mls/hr IV ONETIME ONE Stop: 11/25/19 09:54 Last Admin: 11/25/19 08:02 Dose: 25 mls/hr Insulin Glargine (Lantus) 50 unit SUBCUT DAILY [facility] Last Admin: 11/20/19 13:26 Dose: Not Given Insulin Glargine (Lantus) 50 unit SUBCUT BEDTIME [facility] Last Admin: 11/25/19 21:57 Dose: 50 units Insulin Glargine (Lantus) 45 unit SUBCUT BEDTIME [facility] Last Admin: 11/26/19 21:53 Dose: 45 units Insulin Glargine (Lantus) 30 unit SUBCUT BEDTIME [facility] Last Admin: 11/27/19 22:18 Dose: 30 units Insulin Human Lispro (Humalog) 0 unit SUBCUT BIDAC [facility]; Protocol Last Admin: 11/20/19 12:05 Dose: Not Given Insulin Human Lispro (Humalog) 0 unit SUBCUT BID@0700,1700 [facility]; Protocol Last Admin: 11/20/19 09:14 Dose: 3 units Insulin Human Lispro (Humalog) 0 unit SUBCUT QIDACANDBED [facility]; Protocol Last Admin: 11/24/19 07:59 Dose: Not Given Insulin Human Lispro (Humalog) 3 unit SUBCUT TIDAC [facility] Last Admin: 11/28/19 17:15 Dose: 3 units [facility]ulin [facility]) [facility] Last Admin: 11/30/19 11:13 Dose: 5 units Insulin Human Lispro (Humalog) 3 unit SUBCUT ONETIME ONE Stop: 11/29/19 09:29 Last Admin: 11/29/19 09:38 Dose: 3 units Insulin Human Lispro (Humalog) [facility] Last Admin: 12/03/19 12:25 Dose: 7 units Lorazepam (Ativan) 0.5 mg PO BID [facility] Last Admin: 11/25/19 08:00 Dose: 0.5 mg Lorazepam (Ativan) 0.5 mg PO BEDTIME [facility] Last Admin: 11/25/19 20:40 Dose: 0.5 mg Losartan Potassium (Cozaar) 100 mg PO BEDTIME [facility] Stop: 11/20/19 00:14 Last Admin: 11/20/19 00:58 Dose: 100 mg Losartan Potassium (Cozaar) 100 mg PO DAILY [facility] Last Admin: 11/23/19 09:14 Dose: 100 mg Losartan Potassium (Cozaar) 50 mg PO BEDTIME [facility] Magnesium Hydroxide (Milk Of Magnesia) 30 ml PO ONETIME ONE Stop: 11/24/19 06:01 Last Admin: 11/24/19 05:27 Dose: 30 ml Metoprolol Tartrate (Lopressor) 50 mg PO Q12H [facility] Last Admin: 11/25/19 20:40 Dose: Not Given Miscellaneous Information (Remove Patch) 1 ea TRDERM Q7D [facility] Non-Formulary Medication (Dulaglutide [Trulicity]) 0.75 mg SQ Q7D [facility] Last Admin: 11/28/19 22:13 Dose: Not Given Ondansetron HCl (Zofran) 4 mg IV Q6H PRN PRN Reason: Nausea/Vomiting Pantoprazole Sodium (Protonix) 40 mg PO ACBREAKFAST [facility] Last Admin: 11/27/19 05:16 Dose: 40 mg Potassium Chloride (Klor-Con M20) 20 meq PO ONETIME ONE Stop: 11/21/19 09:17 Last Admin: 11/21/19 10:32 Dose: 20 meq Potassium Chloride (Klor-Con M20) 40 meq PO ONETIME ONE Stop: 11/22/19 10:01 Last Admin: 11/22/19 10:05 Dose: 40 meq Quetiapine Fumarate (Seroquel) 25 mg PO BEDTIME [facility] Last Admin: 11/24/19 21:13 Dose: 25 mg Quetiapine Fumarate (Seroquel) 50 mg PO BEDTIME [facility] Last Admin: 11/26/19 21:55 Dose: 50 mg - Exam General: Alert, Oriented HEENT: Pupils Equal Neck: Supple Lungs: Clear to Auscultation, Normal Respiratory Effort Cardiovascular: Regular Rate, Regular Rhythm GI/Abdominal Exam: Normal Bowel Sounds, Soft, Non-Tender, No Distention Extremities: Normal Inspection, Non-Tender, No Pedal Edema Skin: Warm, Dry, Intact Psy/Mental Status: Alert Sepsis Event Note - Evaluation Sepsis Screening Result: No Definite Risk - Focused Exam Vital Signs: Vital Signs Temp Pulse Resp BP BP Pulse Ox 12/04/19 15:05 98.4 F 73 20 160/47 H 98 12/04/19 11:17 98.4 F 69 12 129/58 L 98 12/04/19 08:48 70 164/83 H 94 L 12/04/19 08:39 140/78 12/04/19 08:34 98.1 F 70 18 94 L 12/04/19 08:00 164/83 H 12/04/19 06:30 98.2 F 70 18 141/106 H 96 Date Exam was Performed: 12/04/19 Time Exam was Performed: 16:04 - Problem List Review Problem List Initiated/Reviewed/Updated: Yes - My Orders Last 24 Hours: My Active Orders 12/04/19 16:04 Magnesium Sulfate/Water [Magnesium Sulfate in Water Premix] 2 gm Premix Bag 1 bag IV ONETIME 12/05/19 09:00 Magnesium Oxide 400 mg PO BID - Plan Plan:: Dementia with episodes of delirium and psychosis Patient clinically stable Psychiatry has evaluated patient multiple times and continues to recommend inpatient psychiatry Case has been discussed with [facility] in [place], both of which have declined transfer At this time patient is unable to get required care at home Level 2 state evaluation performed Accepted at [facility], they are holding a bed for her PLAN - Continue case management and social work for placement Diabetes Mellitus type 2, HbA1c- 9.9% Glucose trend 102-217, used 6 sliding scale units PLAN - Glargine 30u + Humalog 10u pre breakfast, lunch 7u, pre dinner 9u - Accuchecks QID AC and HS - Hypoglycemia protocol - Medium intensity sliding scale Hypertension, improved control this am BP trend 148-179/61-89 Bradycardia on metoprolol, discontinued Patient on clonidine since admission, upon further investigation by pharmacy patient had not been taking any medications except for toujeo. Clonidine could be worsening mental status so will discontinue PLAN - Continue losartan 100mg QD and amlodipine 10 mg QD - chlorthalidone 25 mg daily - PRN Hydralazine - Follow BP Subclinical hypothyroidism - TSH 6.076 (elevated), free T4 0.84 (normal) CKD stage III GFR stable since admission PLAN - Monitor urinary output - Renally dosed medications, avoid nephrotoxic agents Hypomagnesemia -Mag 1.7 today Give Mag 2 gm IV and start mag oxide 400 mg bid. Hypokalemia -resolved PROPHYLAXIS DVT- ambulation and compression stockings GI- not indicated CODE STATUS: DNR/DNI DISPOSITION: Pending placement at [facility]. Length of stay greater than 96 hours secondary to inability to obtain placement.
[2019-12-04] MEDS ORDERED: Magnesium Oxide 400 MG Tab PO ONE (17:32)
[2019-12-04] MEDS: QUEtiapine 100 MG Tab PO SCH (21:08)
[2019-12-04] MEDS: Acetaminophen 325 MG Tab PO PRN (21:09)
[2019-12-04] MEDS: Insulin Glarg,Human.Rec.Analog 100 Unit/ML SUBCUT SCH (21:11)
[2019-12-04] MEDS: Losartan 100 MG Tab PO SCH (21:13)
[2019-12-05] MEDS: Insulin Lispro 100 Units/ML 3 ML Vial SUBCUT SCH ×7 (06:26→21:18)
[2019-12-05] MEDS: Chlorthalidone 25 MG Tab PO SCH (08:35)
[2019-12-05] MEDS: FLUoxetine 20 MG Cap PO SCH (08:35)
[2019-12-05] MEDS: Magnesium Oxide 400 MG Tab PO SCH ×2 (08:35→21:15)
[2019-12-05] MEDS: Potassium Chloride 10 MEQ Tab.ER PO SCH (08:35)
[2019-12-05] MEDS: amLODIPine 10 MG Tab PO SCH (08:36)
[2019-12-05] MEDS: Cholecalciferol (Vitamin D3) 5,000 UNIT Tab PO SCH (08:36)
--- NOTE | 2019-12-05 09:35 | PCM.PN ---
- General Info Date of Service: 12/05/19 Admission Dx/Problem (Free Text): Admission Diagnosis/Problem Admission Diagnosis/Problem Hyperglycemia Subjective Update: Patient states that she is doing well. She had eggs and sausage for breakfast. She has no pain. Functional Status: Reports: Pain Controlled - Review of Systems General: Reports: No Symptoms HEENT: Reports: No Symptoms Pulmonary: Reports: No Symptoms Cardiovascular: Reports: No Symptoms Gastrointestinal: Reports: No Symptoms Musculoskeletal: Reports: No Symptoms - Patient Data Vitals - Most Recent: Last Vital Signs Temp 97.7 F 12/05/19 08:42 Pulse 64 12/05/19 08:42 Resp 18 12/05/19 08:42 BP 156/74 H 12/05/19 08:42 Pulse Ox 98 12/05/19 08:42 Weight - Most Recent: 159 lb 3.2 oz I&O - Last 24 Hours: Intake & Output 12/04/19 12/05/19 12/05/19 22:59 06:59 14:59 Intake Total 1540 300 Output Total 650 700 Balance 890 -400 Lab Results Last 24 Hours: Laboratory Results - last 24 hr 12/04/19 12/04/19 12/04/19 Range/Units 11:13 17:05 21:06 POC Glucose 273 H 191 H 197 H (83-110) mg/dL 12/05/19 Range/Units 06:03 POC Glucose 117 H (83-110) mg/dL Med Orders - Current: Current Medications Acetaminophen (Tylenol) 650 mg PO Q4H PRN PRN Reason: Pain (Mild 1-3)/fever Last Admin: 12/04/19 21:09 Dose: 650 mg Amlodipine Besylate (Norvasc) 10 mg PO DAILY [facility] Last Admin: 12/05/19 08:36 Dose: 10 mg Chlorthalidone (Chlorthalidone) 25 mg PO DAILY [facility] Last Admin: 12/05/19 08:35 Dose: 25 mg Cholecalciferol (Vitamin D3) 5,000 unit PO DAILY [facility] Last Admin: 12/05/19 08:36 Dose: 5,000 unit Fluoxetine HCl (Prozac) 20 mg PO DAILY [facility] Last Admin: 12/05/19 08:35 Dose: 20 mg Insulin Glargine (Lantus) 35 unit SUBCUT BEDTIME [facility] Last Admin: 01/29/20 21:11 Dose: 35 units Insulin Human Lispro (Humalog) 0 unit SUBCUT QIDACANDBED [facility]; Protocol Last Admin: 12/05/19 06:26 Dose: Not Given Insulin Human Lispro (Humalog) 10 unit SUBCUT ACDINNER [facility] Last Admin: 12/04/19 17:08 Dose: 10 units Insulin Human Lispro (Humalog) 7 unit SUBCUT ACLUNCH [facility] Last Admin: 12/04/19 11:50 Dose: 7 units Insulin Human Lispro (Humalog) 7 unit SUBCUT DAILY@0700 [facility] Last Admin: 12/05/19 08:43 Dose: 7 unit Losartan Potassium (Cozaar) 100 mg PO BEDTIME [facility] Last Admin: 12/04/19 21:13 Dose: 100 mg Magnesium Oxide (Magnesium Oxide) 400 mg PO BID [facility] Last Admin: 12/05/19 08:35 Dose: 400 mg Ondansetron HCl (Zofran Odt) 4 mg PO Q6H PRN PRN Reason: nausea, able to take PO Potassium Chloride (Klor-Con 10) 10 meq PO DAILY [facility] Last Admin: 12/05/19 08:35 Dose: 10 meq Quetiapine Fumarate (Seroquel) 100 mg PO BEDTIME [facility] Last Admin: 12/04/19 21:08 Dose: 100 mg Discontinued Medications Amlodipine Besylate (Norvasc) 10 mg PO DAILY [facility] Last Admin: 11/21/19 08:49 Dose: 10 mg Clonidine HCl (Catapres-Tts 1) 0.1 mg TRDERM Q7D [facility] Last Admin: 11/21/19 21:38 Dose: 0.1 mg Dextrose/Water (Dextrose 50% In Water) 50 ml IVPUSH ASDIRECTED PRN PRN Reason: Hypoglycemia Hydralazine HCl (Apresoline) 10 mg IVPUSH ONETIME ONE Stop: 11/19/19 23:50 Last Admin: 11/20/19 00:19 Dose: Not Given Hydralazine HCl (Apresoline) 10 mg IVPUSH Q2H PRN PRN Reason: Hypertension Last Admin: 11/20/19 03:13 Dose: 10 mg Hydralazine HCl (Apresoline) 25 mg PO Q8HR [facility] Last Admin: 11/27/19 05:16 Dose: 25 mg Hydrochlorothiazide (Hydrochlorothiazide) 12.5 mg PO DAILY [facility] Last Admin: 11/23/19 09:12 Dose: 12.5 mg Hydrochlorothiazide (Hydrochlorothiazide) 12.5 mg PO ONETIME [facility] Stop: 11/20/19 16:42 Last Admin: 11/20/19 18:01 Dose: 12.5 mg Magnesium Sulfate 4 gm/ Premix 100 mls @ 25 mls/hr IV ONETIME ONE Stop: 11/21/19 13:29 Last Admin: 11/21/19 10:32 Dose: 25 mls/hr Sodium Chloride (Normal Saline) 1,000 mls @ 100 mls/hr IV ASDIRECTED [facility] Stop: 11/24/19 17:59 Last Admin: 11/24/19 08:05 Dose: 100 mls/hr Magnesium Sulfate 2 gm/ Premix 50 mls @ 25 mls/hr IV ONETIME ONE Stop: 11/25/19 09:54 Last Admin: 11/25/19 08:02 Dose: 25 mls/hr Magnesium Sulfate 2 gm/ Premix 50 mls @ 25 mls/hr IV ONETIME ONE Stop: 12/04/19 18:03 Last Admin: 12/04/19 17:41 Dose: Not Given Insulin Glargine (Lantus) 50 unit SUBCUT DAILY [facility] Last Admin: 11/20/19 13:26 Dose: Not Given Insulin Glargine (Lantus) 50 unit SUBCUT BEDTIME [facility] Last Admin: 11/25/19 21:57 Dose: 50 units Insulin Glargine (Lantus) 45 unit SUBCUT BEDTIME [facility] Last Admin: 11/26/19 21:53 Dose: 45 units Insulin Glargine (Lantus) 30 unit SUBCUT BEDTIME [facility] Last Admin: 11/27/19 22:18 Dose: 30 units Insulin Human Lispro (Humalog) 0 unit SUBCUT BIDAC [facility]; Protocol Last Admin: 11/20/19 12:05 Dose: Not Given Insulin Human Lispro (Humalog) 0 unit SUBCUT BID@0700,1700 [facility]; Protocol Last Admin: 11/20/19 09:14 Dose: 3 units Insulin Human Lispro (Humalog) 0 unit SUBCUT QIDACANDBED [facility]; Protocol Last Admin: 11/24/19 07:59 Dose: Not Given Insulin Human Lispro (Humalog) 3 unit SUBCUT TIDAC [facility] Last Admin: 11/28/19 17:15 Dose: 3 units Insulin Human Lispro (Humalog) 5 unit SUBCUT TIDAC [facility] Last Admin: 11/30/19 11:13 Dose: 5 units Insulin Human Lispro (Humalog) 3 unit SUBCUT ONETIME ONE Stop: 11/29/19 09:29 Last Admin: 11/29/19 09:38 Dose: 3 units Insulin Human Lispro (Humalog) 7 unit SUBCUT TIDAC [facility] Last Admin: 12/03/19 12:25 Dose: 7 units Lorazepam (Ativan) 0.5 mg PO BID [facility] Last Admin: 11/25/19 08:00 Dose: 0.5 mg Lorazepam (Ativan) 0.5 mg PO BEDTIME [facility] Last Admin: 11/25/19 20:40 Dose: 0.5 mg Losartan Potassium (Cozaar) 100 mg PO BEDTIME [facility] Stop: 11/20/19 00:14 Last Admin: 11/20/19 00:58 Dose: 100 mg Losartan Potassium (Cozaar) 100 mg PO DAILY [facility] Last Admin: 11/23/19 09:14 Dose: 100 mg Losartan Potassium (Cozaar) 50 mg PO BEDTIME [facility] Magnesium Hydroxide (Milk Of Magnesia) 30 ml PO ONETIME ONE Stop: 11/24/19 06:01 Last Admin: 11/24/19 05:27 Dose: 30 ml Magnesium Oxide (Magnesium Oxide) 800 mg PO ONETIME ONE Stop: 12/04/19 17:33 Last Admin: 12/04/19 17:59 Dose: 800 mg Metoprolol Tartrate (Lopressor) 50 mg PO Q12H [facility] Last Admin: 11/25/19 20:40 Dose: Not Given Miscellaneous Information (Remove Patch) 1 ea TRDERM Q7D [facility] Non-Formulary Medication (Dulaglutide [Trulicity]) 0.75 mg SQ Q7D [facility] Last Admin: 11/28/19 22:13 Dose: Not Given Ondansetron HCl (Zofran) 4 mg IV Q6H PRN PRN Reason: Nausea/Vomiting Pantoprazole Sodium (Protonix) 40 mg PO ACBREAKFAST [facility] Last Admin: 11/27/19 05:16 Dose: 40 mg Potassium Chloride (Klor-Con M20) 20 meq PO ONETIME ONE Stop: 11/21/19 09:17 Last Admin: 11/21/19 10:32 Dose: 20 meq Potassium Chloride (Klor-Con M20) 40 meq PO ONETIME ONE Stop: 11/22/19 10:01 Last Admin: 11/22/19 10:05 Dose: 40 meq Quetiapine Fumarate (Seroquel) 25 mg PO BEDTIME [facility] Last Admin: 11/24/19 21:13 Dose: 25 mg Quetiapine Fumarate (Seroquel) 50 mg PO BEDTIME [facility] Last Admin: 11/26/19 21:55 Dose: 50 mg - Exam General: Alert, Oriented HEENT: Pupils Equal, Mucous Membr. Moist/[address] Neck: Supple Lungs: Clear to Auscultation, Normal Respiratory Effort Cardiovascular: Regular Rate, Regular Rhythm GI/Abdominal Exam: Normal Bowel Sounds, Soft, Non-Tender, No Organomegaly, No Distention Extremities: Normal Inspection, Normal Range of Motion, Non-Tender, No Pedal Edema Skin: Warm, Dry, Intact Psy/Mental Status: Alert, Normal Affect, Normal Mood Sepsis Event Note - Evaluation Sepsis Screening Result: No Definite Risk - Focused Exam Vital Signs: Vital Signs Temp Pulse Resp BP Pulse Ox 12/05/19 08:42 97.7 F 64 18 156/74 H 98 12/05/19 08:36 156/74 H 12/05/19 06:04 98.1 F 62 18 93 L Date Exam was Performed: 12/05/19 Time Exam was Performed: 09:30 - Problem List Review Problem List Initiated/Reviewed/Updated: Yes - My Orders Last 24 Hours: My Active Orders 12/05/19 09:00 Magnesium Oxide 400 mg PO BID - Plan Plan:: Dementia with episodes of delirium and psychosis Patient clinically stable Psychiatry has evaluated patient multiple times and continues to recommend inpatient psychiatry Case has been discussed with [facility] in [place], both of which have declined transfer At this time patient is unable to get required care at home Level 2 state evaluation performed Accepted at [facility], they are holding a bed for her PLAN - Continue case management and social work for placement Diabetes Mellitus type 2, HbA1c- 9.9% Glucose trend 102-217 PLAN - Glargine 30u + Humalog 10u pre breakfast, lunch 7u, pre dinner 9u - Accuchecks QID AC and HS - Hypoglycemia protocol - Medium intensity sliding scale Hypertension, improved control this am BP trend 148-179/61-89 Bradycardia on metoprolol, discontinued Patient on clonidine since admission, upon further investigation by pharmacy patient had not been taking any medications except for toujeo. Clonidine could worsen mental status so was discontinue PLAN - Continue losartan 100mg QD,chlorthalidone 25 mg daily, and amlodipine 10 mg QD - PRN Hydralazine - Follow BP Subclinical hypothyroidism - TSH 6.076 (elevated), free T4 0.84 (normal) CKD stage III GFR stable since admission. PLAN - Monitor urinary output - Renally dosed medications, avoid nephrotoxic agents Hypomagnesemia mag oxide 400 mg bid. Hypokalemia -resolved PROPHYLAXIS DVT- ambulation and compression stockings GI- not indicated CODE STATUS: DNR/DNI DISPOSITION: Pending placement at care home. Length of stay greater than 96 hours secondary to inability to obtain placement.
[2019-12-05] MEDS: Acetaminophen 325 MG Tab PO PRN (21:16)
[2019-12-05] MEDS: Losartan 100 MG Tab PO SCH (21:16)
[2019-12-05] MEDS: QUEtiapine 100 MG Tab PO SCH (21:16)
[2019-12-05] MEDS: Insulin Glarg,Human.Rec.Analog 100 Unit/ML SUBCUT SCH (21:17)
[2019-12-06] MEDS: Insulin Lispro 100 Units/ML 3 ML Vial SUBCUT SCH ×2 (06:17→08:06)
[2019-12-06] MEDS: Potassium Chloride 10 MEQ Tab.ER PO SCH (08:05)
[2019-12-06] MEDS: amLODIPine 10 MG Tab PO SCH (08:05)
[2019-12-06] MEDS: Chlorthalidone 25 MG Tab PO SCH (08:05)
[2019-12-06] MEDS: Magnesium Oxide 400 MG Tab PO SCH (08:05)
[2019-12-06] MEDS: Cholecalciferol (Vitamin D3) 5,000 UNIT Tab PO SCH (08:05)
[2019-12-06] MEDS: FLUoxetine 20 MG Cap PO SCH (08:06)
--- NOTE | 2019-12-06 08:10 | PCM.DCSUM1 ---
Discharge Summary - Hospital Course HPI Initial Comments: This is a 74 year old female with past medical history of diabetes and hypertension who comes to the ED brought in by daughter, transferred from hospital in [place]. 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 On her way there she was part of a highway shea with 4 patrol cars that were trying to stop her on the highway. She was eventually stopped and pulled over, at that time her glucose was 500. She was taken to a courthouse where daughter was called, upon picking her up she took patient to the emergency department where she was found to have glucose of 500 and BP of 274/120. She was given amlodipine 5mg, hydralazine 50mg, metoprolol tartrate 25mg and Lasix 20mg PO with minimal change in BP. As for her glucose she was given Humalog 10u and Lantus 10u, she was also given 1L NS and sent her for further evaluation. Of note daughter states that patient has not been taking medications for unknown time. Diagnosis: Stroke: No - Discharge Data Discharge Date: 12/06/19 Discharge Disposition: DC/Tfer to [facility] Condition: Good - Referral to Home Health Primary Care Physician: Zo Ferrari MD - Patient Summary/Data Consults: Consultations 11/19/19 23:56 Consult to Diabetic Nurse Specialist [CONS] Routine Consult to Burner Tender [CONS] Routine 11/20/19 10:54 Consult to Physical Therapy [PT Evaluation and Treatment] [CONS] Routine Consult to Physician [CONS] Routine Consult to Speech Language Pathology [MUSIC LIBRARY ASSISTANT Evaluation and Treatment] [CONS] Routine 11/20/19 15:14 Spiritual Care Follow Up [CONS] Routine Hospital Course: Patient was admitted and psychiatric consult was placed. Psychiatry recommended inpatient psychiatric unit, but 2 separate psychiatric hospitals declined transfer. Patient was then placed in a level 2 state evaluation and the [facility] at [place] accepted the patient. Insulin was titrated to appropriate glucose levels while hospitalized. Hypertension improved with adjustment of medication. Clonidine was stopped because this was felt it could be worsening some of her behavior and mental status. Patient was diagnosed with subclinical hypothyroidism during hospitalization with an elevated TSH at 6.076 and a free T4 of 0.84. Chronic kidney disease stage III was stable throughout hospitalization and electrolyte abnormalities resolved with treatment. During hospitalization she had speech therapy evaluation and treatment as well as physical therapy. - Patient Instructions Diet: Diabetic Diet Activity: As Tolerated Driving: Do Not Drive Showering/Bathing: May Shower Other/Special Instructions: Follow up with PCP 1 - 2 weeks. Get metabolic panel prior to PCP appointment for review. - Discharge Plan *PRESCRIPTION DRUG MONITORING PROGRAM REVIEWED*: No *COPY OF PRESCRIPTION DRUG MONITORING REPORT IN PATIENT RUI: No Prescriptions/Med Rec: Chlorthalidone 25 mg PO DAILY #30 tablet Cholecalciferol (Vitamin D3) [Vitamin D3] 5,000 unit PO DAILY #30 tablet FLUoxetine HCl [Fluoxetine HCl] 20 mg PO DAILY #30 capsule Insulin Glarg,Human.Rec.Analog [Lantus] 35 unit SUBCUT BEDTIME #1 vial Insulin Lispro [HumaLOG] 7 unit SUBCUT DAILY@0700 #1 vial Insulin Lispro [HumaLOG] 10 unit SUBCUT ACDINNER #1 vial Losartan [Cozaar] 100 mg PO BEDTIME #30 tablet Magnesium Oxide 400 mg PO BID #60 tablet Potassium Chloride [Klor-Con 10] 10 meq PO DAILY #30 tab.er QUEtiapine [SEROquel] 100 mg PO BEDTIME #30 tablet Home Medications: Home Meds amLODIPine Besylate [Norvasc] 10 mg PO DAILY 11/19/19 [History] Cholecalciferol (Vitamin D3) [Vitamin D3] 5,000 unit PO DAILY #30 tablet [Rx] FLUoxetine HCl [Fluoxetine HCl] 20 mg PO DAILY #30 capsule 11/28/19 [Rx] Losartan [Cozaar] 100 mg PO BEDTIME #30 tablet 11/28/19 [Rx] QUEtiapine [SEROquel] 100 mg PO BEDTIME #30 tablet 11/28/19 [Rx] Chlorthalidone 25 mg PO DAILY #30 tablet 12/06/19 [Rx] Insulin Glarg,Human.Rec.Analog [Lantus] 35 unit SUBCUT BEDTIME #1 vial 12/06/19 [Rx] Insulin Lispro [HumaLOG] 7 unit SUBCUT ACLUNCH vial 12/06/19 [Rx] Insulin Lispro [HumaLOG] 7 unit SUBCUT DAILY@0700 #1 vial 12/06/19 [Rx] Insulin Lispro [HumaLOG] 10 unit SUBCUT ACDINNER #1 vial 12/06/19 [Rx] Magnesium Oxide 400 mg PO BID #60 tablet 12/06/19 [Rx] Potassium Chloride [Klor-Con 10] 10 meq PO DAILY #30 tab.er 12/06/19 [Rx] Patient Handouts: Type 2 Diabetes Mellitus, Diagnosis, Adult Referrals: Zo Ferrari MD [Primary Care Provider] - - Discharge Summary/Plan Comment DC Time >30 min.: Yes Discharge Summary/Plan Comment: Discharged to [place] [facility]. Follow-up with primary care provider within a week. - General Info Date of Service: 12/06/19 Admission Dx/Problem (Free Text: Admission Diagnosis/Problem Admission Diagnosis/Problem Hyperglycemia Subjective Update: Doing well without complaints. Functional Status: Reports: Pain Controlled - Review of Systems General: Reports: No Symptoms HEENT: Reports: No Symptoms Pulmonary: Reports: No Symptoms Cardiovascular: Reports: No Symptoms Gastrointestinal: Reports: No Symptoms Musculoskeletal: Reports: No Symptoms - Patient Data Vitals - Most Recent: Last Vital Signs Temp 98.1 F 12/06/19 04:33 Pulse 80 12/06/19 04:33 Resp 20 12/06/19 04:33 BP 124/81 12/06/19 08:05 Pulse Ox 99 12/06/19 04:33 Weight - Most Recent: 158 lb 4.8 oz I&O - Last 24 hours: Intake & Output 12/05/19 12/06/19 12/06/19 22:59 06:59 14:59 Intake Total 1100 200 Output Total 550 1400 Balance 550 -1200 Lab Results - Last 24 hrs: Laboratory Results - last 24 hr 12/05/19 12/05/19 12/05/19 Range/Units 11:09 16:51 21:11 POC Glucose 167 H 145 H 185 H (83-110) mg/dL 12/06/19 Range/Units 06:07 POC Glucose 120 H (83-110) mg/dL Med Orders - Current: Current Medications Acetaminophen (Tylenol) 650 mg PO Q4H PRN PRN Reason: Pain (Mild 1-3)/fever Last Admin: 12/05/19 21:16 Dose: 650 mg Amlodipine Besylate (Norvasc) 10 mg PO DAILY [facility] Last Admin: 12/06/19 08:05 Dose: 10 mg Chlorthalidone (Chlorthalidone) 25 mg PO DAILY [facility] Last Admin: 12/06/19 08:05 Dose: 25 mg Cholecalciferol (Vitamin D3) 5,000 unit PO DAILY [facility] Last Admin: 12/06/19 08:05 Dose: 5,000 unit Fluoxetine HCl (Prozac) 20 mg PO DAILY [facility] Last Admin: 12/06/19 08:06 Dose: 20 mg Insulin Glargine (Lantus) 35 unit SUBCUT BEDTIME [facility] Last Admin: 12/05/19 21:17 Dose: 35 units Insulin Human Lispro (Humalog) 0 unit SUBCUT QIDACANDBED [facility]; Protocol Last Admin: 12/06/19 06:17 Dose: Not Given Insulin Human Lispro (Humalog) 10 unit SUBCUT ACDINNER [facility] Last Admin: 12/05/19 17:03 Dose: 10 units Insulin Human Lispro (Humalog) 7 unit SUBCUT ACLUNCH [facility] Last Admin: 12/05/19 11:45 Dose: 7 units Insulin Human Lispro (Humalog) 7 unit SUBCUT DAILY@0700 [facility] Last Admin: 12/06/19 08:06 Dose: 7 unit Losartan Potassium (Cozaar) 100 mg PO BEDTIME [facility] Last Admin: 12/05/19 21:16 Dose: 100 mg Magnesium Oxide (Magnesium Oxide) 400 mg PO BID [facility] Last Admin: 12/06/19 08:05 Dose: 400 mg Ondansetron HCl (Zofran Odt) 4 mg PO Q6H PRN PRN Reason: nausea, able to take PO Potassium Chloride (Klor-Con 10) 10 meq PO DAILY [facility] Last Admin: 12/06/19 08:05 Dose: 10 meq Quetiapine Fumarate (Seroquel) 100 mg PO BEDTIME [facility] Last Admin: 12/05/19 21:16 Dose: 100 mg Discontinued Medications Amlodipine Besylate (Norvasc) 10 mg PO DAILY [facility] Last Admin: 11/21/19 08:49 Dose: 10 mg Clonidine HCl (Catapres-Tts 1) 0.1 mg TRDERM Q7D [facility] Last Admin: 11/21/19 21:38 Dose: 0.1 mg Dextrose/Water (Dextrose 50% In Water) 50 ml IVPUSH ASDIRECTED PRN PRN Reason: Hypoglycemia Hydralazine HCl (Apresoline) 10 mg IVPUSH ONETIME ONE Stop: 11/19/19 23:50 Last Admin: 11/20/19 00:19 Dose: Not Given Hydralazine HCl (Apresoline) 10 mg IVPUSH Q2H PRN PRN Reason: Hypertension Last Admin: 11/20/19 03:13 Dose: 10 mg Hydralazine HCl (Apresoline) 25 mg PO Q8HR [facility] Last Admin: 11/27/19 05:16 Dose: 25 mg Hydrochlorothiazide (Hydrochlorothiazide) 12.5 mg PO DAILY [facility] Last Admin: 11/23/19 09:12 Dose: 12.5 mg Hydrochlorothiazide (Hydrochlorothiazide) 12.5 mg PO ONETIME STA Stop: 11/20/19 16:42 Last Admin: 11/20/19 18:01 Dose: 12.5 mg Magnesium Sulfate 4 gm/ Premix 100 mls @ 25 mls/hr IV ONETIME ONE Stop: 11/21/19 13:29 Last Admin: 11/21/19 10:32 Dose: 25 mls/hr Sodium Chloride (Normal Saline) 1,000 mls @ 100 mls/hr IV ASDIRECTED [facility] Stop: 11/24/19 17:59 Last Admin: 11/24/19 08:05 Dose: 100 mls/hr Magnesium Sulfate 2 gm/ Premix 50 mls @ 25 mls/hr IV ONETIME ONE Stop: 11/25/19 09:54 Last Admin: 11/25/19 08:02 Dose: 25 mls/hr Magnesium Sulfate 2 gm/ Premix 50 mls @ 25 mls/hr IV ONETIME ONE Stop: 12/04/19 18:03 Last Admin: 12/04/19 17:41 Dose: Not Given Insulin Glargine (Lantus) 50 unit SUBCUT DAILY [facility] Last Admin: 11/20/19 13:26 Dose: Not Given Insulin Glargine (Lantus) 50 unit SUBCUT BEDTIME [facility] Last Admin: 11/25/19 21:57 Dose: 50 units Insulin Glargine (Lantus) 45 unit SUBCUT BEDTIME [facility] Last Admin: 11/26/19 21:53 Dose: 45 units Insulin Glargine (Lantus) 30 unit SUBCUT BEDTIME [facility] Last Admin: 11/27/19 22:18 Dose: 30 units Insulin Human Lispro (Humalog) 0 unit SUBCUT BIDAC [facility]; Protocol Last Admin: 11/20/19 12:05 Dose: Not Given Insulin Human Lispro (Humalog) 0 unit SUBCUT BID@0700,1700 [facility]; Protocol Last Admin: 11/20/19 09:14 Dose: 3 units Insulin Human Lispro (Humalog) 0 unit SUBCUT QIDACANDBED [facility]; Protocol Last Admin: 11/24/19 07:59 Dose: Not Given Insulin Human Lispro (Humalog) 3 unit SUBCUT TIDAC [facility] Last Admin: 11/28/19 17:15 Dose: 3 units Insulin Human Lispro (Humalog) 5 unit SUBCUT TIDAC [facility] Last Admin: 11/30/19 11:13 Dose: 5 units Insulin Human Lispro (Humalog) 3 unit SUBCUT ONETIME ONE Stop: 11/29/19 09:29 Last Admin: 11/29/19 09:38 Dose: 3 units Insulin Human Lispro (Humalog) [facility] Last Admin: 12/03/19 12:25 Dose: 7 units Lorazepam (Ativan) 0.5 mg PO BID [facility] Last Admin: 11/25/19 08:00 Dose: 0.5 mg Lorazepam (Ativan) 0.5 mg PO BEDTIME [facility] Last Admin: 11/25/19 20:40 Dose: 0.5 mg Losartan Potassium (Cozaar) 100 mg PO BEDTIME STA Stop: 11/20/19 00:14 Last Admin: 11/20/19 00:58 Dose: 100 mg Losartan Potassium (Cozaar) 100 mg PO DAILY [facility] Last Admin: 11/23/19 09:14 Dose: 100 mg Losartan Potassium (Cozaar) 50 mg PO BEDTIME [facility] Magnesium Hydroxide (Milk Of Magnesia) 30 ml PO ONETIME ONE Stop: 11/24/19 06:01 Last Admin: 11/24/19 05:27 Dose: 30 ml Magnesium Oxide (Magnesium Oxide) 800 mg PO ONETIME ONE Stop: 12/04/19 17:33 Last Admin: 12/04/19 17:59 Dose: 800 mg Metoprolol Tartrate (Lopressor) 50 mg PO Q12H [facility] Last Admin: 11/25/19 20:40 Dose: Not Given Miscellaneous Information (Remove Patch) 1 ea TRDERM Q7D [facility] Non-Formulary Medication (Dulaglutide [Trulicity]) 0.75 mg SQ Q7D [facility] Last Admin: 11/28/19 22:13 Dose: Not Given Ondansetron HCl (Zofran) 4 mg IV Q6H PRN PRN Reason: Nausea/Vomiting Pantoprazole Sodium (Protonix) 40 mg PO ACBREAKFAST [facility] Last Admin: 11/27/19 05:16 Dose: 40 mg Potassium Chloride (Klor-Con M20) 20 meq PO ONETIME ONE Stop: 11/21/19 09:17 Last Admin: 11/21/19 10:32 Dose: 20 meq Potassium Chloride (Klor-Con M20) 40 meq PO ONETIME ONE Stop: 11/22/19 10:01 Last Admin: 11/22/19 10:05 Dose: 40 meq Quetiapine Fumarate (Seroquel) 25 mg PO BEDTIME [facility] Last Admin: 11/24/19 21:13 Dose: 25 mg Quetiapine Fumarate (Seroquel) 50 mg PO BEDTIME [facility] Last Admin: 11/26/19 21:55 Dose: 50 mg - Exam Quality Assessment: Denies: Supplemental Oxygen General: Reports: Alert HEENT: Reports: Pupils Equal, Mucous Membr. Moist/[place] Neck: Reports: Supple Lungs: Reports: Clear to Auscultation, Normal Respiratory Effort Cardiovascular: Reports: Regular Rate, Regular Rhythm GI/Abdominal Exam: Normal Bowel Sounds, No Organomegaly, No Distention Extremities: Normal Inspection, Normal Range of Motion, Non-Tender, No Pedal Edema Skin: Reports: Warm, Dry, Intact Psy/Mental Status: Reports: Alert, Normal Affect, Normal Mood
== END 2019-12-06 08:40 | DRG 638 ==
LOC: JD.ED 22:33 → JD.MS 11-20 00:27 → OBSVTOIN 11-20 11:39 → JD.MS 11-22 11:45
PROVIDERS: ADMIT Internal Medicine; ATTEND Internal Medicine
DX: E11.65 Type 2 diabetes mellitus with hyperglycemia (principal); F05 Delirium due to known physiological condition; F32.3 Major depressive disorder, single episode, severe with psychotic features; I12.9 Hypertensive chronic kidney disease with stage 1 through stage 4 chronic kidney disease, or unspecified chronic kidney disease; I10 Essential (primary) hypertension; E11.22 Type 2 diabetes mellitus with diabetic chronic kidney disease; Z66 Do not resuscitate; E78.00 Pure hypercholesterolemia, unspecified; E87.6 Hypokalemia; N18.3 Chronic kidney disease, stage 3 (moderate); K21.9 Gastro-esophageal reflux disease without esophagitis; F29 Unspecified psychosis not due to a substance or known physiological condition; F41.9 Anxiety disorder, unspecified; F03.90 Unspecified dementia, unspecified severity, without behavioral disturbance, psychotic disturbance, mood disturbance, and anxiety; E03.9 Hypothyroidism, unspecified; E02 Subclinical iodine-deficiency hypothyroidism; E83.42 Hypomagnesemia; Z98.49 Cataract extraction status, unspecified eye; Z90.49 Acquired absence of other specified parts of digestive tract; R41.82 Altered mental status, unspecified; Z90.710 Acquired absence of both cervix and uterus; Z91.19 Patient's noncompliance with other medical treatment and regimen; Z88.5 Allergy status to narcotic agent; Z79.4 Long term (current) use of insulin; Z79.899 Other long term (current) drug therapy
CPT/HCPCS: 36415 ×2; 80048 ×2; 82009; 82306; 82607; 82746; 82962 ×2; 83605; 83735 ×2; 84100 ×2; 84443; 85025; 99285; A9270 ×2; J0360; J1815 ×2; 80053; 84439; 96125-GN; 97110-GP; 97112-GP; 97116-GP; 97129-GN; 97130-GN; 97162-GP; 97530-GP; 99222; 99231; 99232; 99239; J3475; J7030; Q3014